=== PATIENT | female | born 1985 | race African-American/Black ===

== ENCOUNTER 2020-08-04 10:00 | Outpatient (REF) | payer OTHER, SELFPAY ==
--- NOTE | 2020-08-04 15:19 | MHC.AU.P13 ---
Adult Audiological Evaluation Date of Visit: 08/04/20 Reason for Appointment: Referred by [facility] for an audiologic evaluation and to obtain hearing aids. Briana communicates with Sign Language and Eritrean is not her primary language. Does patient feel they have a hearing loss?: Yes If Yes, Which Ear?: Both Ears When Was Hearing Difficulty First Noticed?: Since childhood Has hearing been tested previously?: No Previous Hearing Test Results: Medical History: Medical History: Headache Otoscopy: Right Ear: Unremarkable Left Ear: Unremarkable Tympanometry: Right Ear: Normal Middle Ear System (Type A) Left Ear: Normal Middle Ear System (Type A) Hearing Evaluation: Transducer(s) Used: Insert Earphones Bone Conduction Method: Conventional Audiometry Stimuli Used: Pure Tones Right Ear: Description of Hearing: Profound mixed hearing loss Left Ear: Description of Hearing: Severe to profound mixed hearing loss Speech Recognition Threshold (SRT): Method Used: Not performed at today's visit due to limited speech skills Word Discrimination: Method: Not performed at today's visit. Comparison: Compared to the most recent evaluation: N/A Recommendations: Recommendations: Trial with amplification is recommended. Medical clearance from a physician is required before fitting. Recommendations (Other): Sending prior authorization paperwork to [facility]. When approval is received will order binaural Phonak Audeo M hearing aids with integrated ultra power receivers with custom canal lock earmolds and schedule a Hearing Aid Fitting appointment. Diagnosis: Primary Diagnosis: H90.8 Mixed Hearing Loss, Unspecified Secondary Diagnosis: N/A Services Performed: Services Performed: Pure Tone- Air & Bone (CPT 06701) Speech Audiometry Threshold (SRT/SAT) (CPT 54739) Tympanometry (CPT 09357) Signature: Student/Clinical Fellow: No I have reviewed/agreed with student/fellow documentation: N/A Provider: Arcenio Monte, ESTEFANIA-A
== END 2020-08-04 10:01 | disposition home or self-care (01) ==
LOC: HO.SH 10:00
PROVIDERS: PCP Family Medicine; Visit Provider Family Medicine
DX: H90.8 Mixed conductive and sensorineural hearing loss, unspecified (principal)
CPT/HCPCS: 92553; 92555; 92567

== ENCOUNTER 2021-02-06 15:01 | Outpatient (REF) | payer MEDICAID, OTHER, SELFPAY ==
--- NOTE | ~2021-02-06 | MM_ITS ---
EXAMINATION: MM DIAGNOSTIC DIGITAL BREAST TOMOSYNTHESIS, BILATERAL US DIAGNOSTIC ULTRASOUND BREAST, RIGHT CLINICAL INFORMATION: 36-year-old with pain and tenderness retroareolar right breast. No prior breast imaging. No discharge or palpable lump noted by patient. No known family history breast cancer. Breast asymmetry noted to be a chronic finding without significant bladder changer years. The lifetime risk of breast cancer based on the Tyrer-Cuzick Model is 11%. COMPARISON: None (current study represents initial baseline exam). TECHNIQUE: Digital breast tomosynthesis is performed in both the craniocaudal and mediolateral oblique views along with computer-aided detection (CAD). Synthesized 2D images are generated from the tomosynthesis. Additional bilateral magnification CC and bilateral magnification ML views are obtained. Ultrasound right breast is targeted to the retroareolar and periareolar region. Grayscale imaging and color Doppler are performed without and with harmonics. Comparison imaging of the left retroareolar region is also performed. FINDINGS: There are scattered areas of fibroglandular density (ACR BI-RADS breast composition Category b). There is asymmetry of the breasts, right anterior breast slightly larger including the right nipple areolar complex. There is no mass or architectural abnormality. The axilla and skin contours are unremarkable. No skin thickening or coarsening of the Wicho's ligaments. No adenopathy. There are fine bilateral subareolar calcifications, slightly greater in number on the right. The calcifications demonstrate layering on the MLO view consistent with benign milk of calcium. Ultrasound demonstrates borderline bilateral subareolar duct ectasia without intraductal mass or color flow. There are scattered specular echoes consistent with milk of calcium noted on mammography. There is no cystic or solid mass or architectural abnormality. No skin thickening or edema tracking in soft tissue planes. Results are discussed with the patient at time of visit using a hospital provided marine design engineer. MM/MM tomosynthesis diagnostic BI IMPRESSION: 1. No mammographic evidence of malignancy or focal inflammatory changes. 2. Bilateral subareolar benign milk of calcium calcifications. 3. Borderline bilateral subareolar duct ectasia. ASSESSMENT: BI-RADS 2: Benign RECOMMENDATION: 1. Patient should be managed based on the clinical impression. If clinically indicated, further evaluation may be considered with surgical consult. Decision to proceed with biopsy should be based on clinical grounds and degree of clinical concern. 2. Otherwise, routine annual mammography, beginning age 40, or earlier as clinical risk factors warrant. This patient's information was entered into a reminder system with a target due date for their next mammogram.
== END 2021-02-06 15:02 | disposition home or self-care (01) ==
LOC: HO.MAMMO 15:01
PROVIDERS: Visit Provider Family Medicine
DX: N63.12 Unspecified lump in the right breast, upper inner quadrant (principal); R92.1 Mammographic calcification found on diagnostic imaging of breast
CPT/HCPCS: 76642; 77062; 77066

== ENCOUNTER 2021-03-13 13:20 | Outpatient (REF) | payer MEDICAID, OTHER, SELFPAY ==
--- NOTE | ~2021-03-13 | XR_ITS ---
EXAMINATION: XR ABDOMEN KUB CLINICAL INDICATION: Hemorrhage of rectum and anus. COMPARISON: None TECHNIQUE: AP view of the abdomen. FINDINGS: The bowel gas pattern is normal with no evidence of ileus or obstruction. No unusual soft tissue calcifications are noted. The bones are unremarkable. XR/XR KUB IMPRESSION: Unremarkable examination.
[2021-03-13 14:48] LABS: MANUAL DIFF FLAG NO
[2021-03-13 14:51] LABS: Basophils Percent Auto 0.1 % (0-2); Eosinophils Absolute Auto 0.1 X10*3/uL (0.0-0.4); Eosinophils Percent Auto 1.1 % (0-4); Hematocrit 34.4 % (37-47); Hemoglobin 11.2 g/dl (12.0-16.0); Imm Gran Abs Auto 0.02 X10*3/uL (0.00-0.03); Imm Gran Pct Auto 0.2 % (0.0-0.4); Lymphocytes Absolute Auto 3.2 X10*3/uL (1.2-4.9); Lymphocytes Percent Auto 33.8 % (20-40); Mean Corpuscular HGB Conc 32.6 g/dl (31.0-35.0); Mean Corpuscular Hemoglobin 31.5 pg (27.0-33.0); Mean Corpuscular Volume 96.6 fL (80-98); Mean Platelet Volume 9.1 fL (9.4-12.3); Monocytes Absolute Auto 0.6 X10*3/uL (0.1-1.2); Neutrophils Absolute Auto 5.5 X10*3/uL (2.0-8.3); Neutrophils Percent Auto 58.8 % (45-73); Platelet Count 358 X10*3/uL (160-400); Red Blood Count 3.56 X10*6/uL (4.20-5.50); Red Cell Distribution Width 12.8 % (11.0-16.0); White Blood Count 9.3 X10*3/uL (4.8-10.8)
[2021-03-13 15:18] LABS: Alanine Aminotransferase 12 U/L (0-31); Albumin Level 4.3 g/dL (3.5-5.0); Alkaline Phosphatase 77 U/L (39-117); Anion Gap 11 (12-20); Aspartate Amino Transferase 13 U/L (5-31); Bilirubin Direct 0.3 mg/dL (0.0-0.5); Bilirubin Total 0.8 mg/dL (0.0-1.0); Blood Urea Nitrogen 16 mg/dL (9-16); C Reactive Protein 1.83 mg/dL (< or = 0.50); Calcium 9.6 mg/dL (8.4-10.2); Carbon Dioxide 28 mmol/L (22-29); Chloride 104 mmol/L (96-108); Estimated Glomerular Filt Rate > 60; Glucose Random 80 mg/dL (60-115); Lipase 27 U/L (8-78); Potassium 3.9 mmol/L (3.3-5.1); Sodium 139 mmol/L (135-145)
== END 2021-03-13 13:21 | disposition home or self-care (01) ==
LOC: HO.LAB 13:20
PROVIDERS: PCP Family Medicine; Visit Provider Emergency Medicine
DX: K62.5 Hemorrhage of anus and rectum (principal); R10.30 Lower abdominal pain, unspecified
CPT/HCPCS: 36415; 74018; 80048; 80076; 83690; 85025; 86140

== ENCOUNTER 2021-03-26 12:10 | Outpatient (REF) | payer MEDICAID, OTHER, SELFPAY ==
[2021-03-26 12:37] LABS: OBS Int Ctl Valid YES; OBS1 NEGATIVE (NEGATIVE)
== END 2021-03-26 12:11 | disposition home or self-care (01) ==
LOC: HO.LNP 12:10
PROVIDERS: Visit Provider Family Medicine
DX: R10.30 Lower abdominal pain, unspecified (principal); Z11.0 Encounter for screening for intestinal infectious diseases
CPT/HCPCS: 82272; 87045; 87046; 87177; 87209; 87338

== ENCOUNTER 2022-07-09 11:00 | Outpatient (REF) | payer MEDICAID, OTHER, SELFPAY ==
--- NOTE | ~2022-07-09 | US_ITS ---
EXAMINATION: US PELVIS CLINICAL INFORMATION: Evaluate ovaries. Patient gives history of ovarian agenesis COMPARISON: Previous exam July 2019 TECHNIQUE: Ultrasound of the pelvis is performed using both transabdominal and transvaginal transducers along with Doppler. Transvaginal imaging is performed due to inadequate visualization transabdominally. FINDINGS: The uterus is retroverted and retroflexed and measures 6 x 2.7 x 3.8 cm. No focal uterine lesion is seen. Endometrial thickness is normal measuring 0.8 cm. There is a nabothian cyst in the cervix. The ovaries are not identified. There is no fluid in the pelvis. US/US pelvic and transvaginal IMPRESSION: Normal-appearing uterus. Ovaries not identified.
== END 2022-07-09 11:01 | disposition home or self-care (01) ==
LOC: HO.US 11:00
PROVIDERS: Visit Provider Family Medicine
DX: E28.39 Other primary ovarian failure (principal)
CPT/HCPCS: 76830; 76856

== ENCOUNTER 2023-07-10 18:50 | Outpatient (REF) | payer MEDICAID, OTHER, SELFPAY ==
[2023-07-11 03:27] LABS: CT PCR NOT DETECTED (Not Detect.); NG PCR NOT DETECTED (Not Detect.)
[2023-07-11 16:02] LABS: BV Int Neg Control Negative (Negative); BV Int Pos Control Positive (Positive)
== END 2023-07-10 18:51 | disposition home or self-care (01) ==
LOC: HO.HHCLNP 18:50
PROVIDERS: Visit Provider Family Medicine
DX: B37.31 Acute candidiasis of vulva and vagina (principal)
CPT/HCPCS: 0353U; 87480; 87510; 87660

== ENCOUNTER 2023-08-20 09:15 | Outpatient (REF) | payer MEDICAID, OTHER, SELFPAY ==
--- NOTE | ~2023-08-20 | XR_ITS ---
EXAMINATION: XR ABDOMEN KUB CLINICAL INDICATION: Lower abdominal pain acute bilateral back pain without sciatica COMPARISON: 03/13/2021 TECHNIQUE: AP view of the abdomen. FINDINGS: The bowel gas pattern is normal with no evidence of ileus or obstruction. No unusual soft tissue calcifications are noted. The bones are unremarkable. XR/XR KUB IMPRESSION: Unremarkable examination.
[2023-08-20 18:25] LABS: Appearance Urine Turbid; Color Urine Yellow; Glucose Urine UA Negative (Negative); Leukocyte Esterase Urine Small (1+) (Negative); Nitrite Urine Negative (Negative); PH 5.5 (5.0-9.0); Specific Gravity - Urine >= 1.030 (1.005-1.025); UMIC TRIGGER UACC YES; Urine Blood Negative (Negative); Urine Ketones Negative (Negative); Urine Protein Trace mg/dL (Neg-Trace)
[2023-08-20 18:33] LABS: Bacteria Urine None Seen (None Seen); Hyaline Casts Urine 0-2 /LPF (0-2); RBC Urine 0-2 /HPF (0-2); Squamous Epithelial Cell Urine 0-2 /HPF (0-2); UACC Culture Trigger YES; WBC Urine 21-50 /HPF (0-5)
== END 2023-08-20 09:16 | disposition home or self-care (01) ==
LOC: HO.HHCX 09:15
PROVIDERS: Visit Provider Family Medicine
DX: R10.30 Lower abdominal pain, unspecified (principal); M54.50 Low back pain, unspecified
CPT/HCPCS: 36415; 74018; 81001; 84702; 85025; 86140; 87086

== ENCOUNTER 2023-08-20 09:59 | Outpatient (REF) | payer MEDICAID, OTHER, SELFPAY ==
[2023-08-20 11:04] LABS: MANUAL DIFF FLAG NO
[2023-08-20 11:30] LABS: Basophils Percent Auto 0.2 % (0-2); Eosinophils Percent Auto 0.4 % (0-4); Hemoglobin 12.3 g/dl (12.0-16.0); Imm Gran Abs Auto 0.01 X10*3/uL (0.00-0.03); Imm Gran Pct Auto 0.2 % (0.0-0.4); Lymphocytes Absolute Auto 2.5 X10*3/uL (1.2-4.9); Lymphocytes Percent Auto 52.2 % (20-40); Mean Corpuscular HGB Conc 33.2 g/dl (31.0-35.0); Mean Corpuscular Hemoglobin 31.2 pg (27.0-33.0); Mean Corpuscular Volume 93.9 fL (80.0-98.0); Mean Platelet Volume 9.9 fL (9.4-12.3); Monocytes Absolute Auto 0.3 X10*3/uL (0.1-1.2); Monocytes Percent Auto 6.6 % (2-11); Neutrophils Absolute Auto 1.9 x10*3/uL (2.0-8.3); Neutrophils Percent Auto 40.4 % (45-73); Platelet Count 357 X10*3/uL (160-400); Red Blood Count 3.94 X10*6/uL (4.20-5.50); Red Cell Distribution Width 12.4 % (11.0-16.0); White Blood Count 4.7 X10*3/uL (4.8-10.8)
[2023-08-20 11:38] LABS: C Reactive Protein 0.36 mg/dL (< or = 0.50)
[2023-08-20 11:40] LABS: HCG Quantitative < 2 mIU/mL
== END 2023-08-20 10:00 | disposition home or self-care (01) ==
LOC: HO.HHCL 09:59
PROVIDERS: Visit Provider Family Medicine
DX: R10.30 Lower abdominal pain, unspecified (principal); M54.50 Low back pain, unspecified
CPT/HCPCS: 36415; 84702; 85025; 86140

== ENCOUNTER 2023-12-25 12:47 | Outpatient (REF) | payer OTHER, SELFPAY ==
--- NOTE | ~2023-12-25 | XR_ITS ---
EXAMINATION: XR CHEST CLINICAL INFORMATION: Ongoing cough COMPARISON: None available. TECHNIQUE: 2 views of the chest were obtained. FINDINGS: No significant abnormality is noted involving the heart, lungs, mediastinum, bony thorax or soft tissues. XR/XR chest 2V IMPRESSION: Unremarkable examination.
== END 2023-12-25 12:48 | disposition home or self-care (01) ==
LOC: HO.HHCX 12:47
PROVIDERS: Visit Provider Student in an Organized Health Care Education/Training Program
DX: R05.9 Cough, unspecified (principal)
CPT/HCPCS: 71046

== ENCOUNTER 2023-12-25 13:01 | Outpatient (REF) | payer OTHER, SELFPAY ==
[2023-12-27 22:59] LABS: TS Negative Control Passed; TS Panel A 3; TS Panel B 0; TS Positive Control Passed; TSpotTB Negative (Negative)
== END 2023-12-25 13:02 | disposition home or self-care (01) ==
LOC: HO.HHCL 13:01
PROVIDERS: Visit Provider Student in an Organized Health Care Education/Training Program
DX: R05.9 Cough, unspecified (principal)
CPT/HCPCS: 36415; 86481

== ENCOUNTER 2024-05-11 10:58 | Outpatient (REF) | payer OTHER, SELFPAY ==
[2024-05-11 13:11] LABS: Estimated Average Glucose 134 mg/dL; Hemoglobin A1c % 6.3 % (<6.0)
[2024-05-11 16:26] LABS: Alanine Aminotransferase 11 U/L (0-31); Albumin Level 4.4 g/dL (3.5-5.0); Alkaline Phosphatase 69 U/L (39-117); Anion Gap 13 (12-20); Aspartate Amino Transferase 17 U/L (5-31); Bilirubin Direct 0.2 mg/dL (0.0-0.5); Bilirubin Total 0.4 mg/dL (0.0-1.0); Blood Urea Nitrogen 10 mg/dL (9-16); Calcium 9.7 mg/dL (8.4-10.2); Carbon Dioxide 26 mmol/L (22-29); Chloride 103 mmol/L (96-108); Cholesterol 199 mg/dL (<200); Estimated Glomerular Filt Rate > 60; Glucose Random 86 mg/dL (60-115); HDL Cholesterol 58 mg/dL (>40); LDL Cholesterol Calculated 128 mg/dL (<100); Potassium 3.8 mmol/L (3.3-5.1); Sodium 138 mmol/L (135-145); Total Protein 7.6 g/dL (6.5-8.0); Triglycerides 69 mg/dL (<150)
[2024-05-12 09:13] LABS: Bacterial Vaginosis PCR NEGATIVE (Negative); Candida Group PCR NOT DETECTED (Not Detect); Candida glab krusei PCR NOT DETECTED (Not Detect); Trichomonas vaginalis PCR NOT DETECTED (Not Detect)
== END 2024-05-11 10:59 | disposition home or self-care (01) ==
LOC: HO.HHCL 10:58
PROVIDERS: Visit Provider Family Medicine
DX: E11.9 Type 2 diabetes mellitus without complications (principal); N89.8 Other specified noninflammatory disorders of vagina; K21.9 Gastro-esophageal reflux disease without esophagitis
CPT/HCPCS: 0352U; 36415; 80048; 80061; 80076; 83036

== ENCOUNTER 2024-09-07 10:15 | Outpatient (REF) | payer OTHER, SELFPAY ==
[2024-09-07 11:39] LABS: Estimated Average Glucose 134 mg/dL; Hemoglobin A1C 144.4207 umol/L; Hemoglobin A1c % 6.3 % (<6.0); Total Hemoglobin (HGBA1C) 3176.0349 umol/L
[2024-09-07 12:16] LABS: Alanine Aminotransferase 20 U/L (0-31); Albumin Level 4.5 g/dL (3.5-5.0); Alkaline Phosphatase 78 U/L (39-117); Anion Gap 13 (12-20); Aspartate Amino Transferase 22 U/L (5-31); Bilirubin Direct 0.2 mg/dL (0.0-0.5); Bilirubin Total 0.5 mg/dL (0.0-1.0); Blood Urea Nitrogen 10 mg/dL (9-16); Calcium 9.9 mg/dL (8.4-10.2); Carbon Dioxide 27 mmol/L (22-29); Chloride 104 mmol/L (96-108); Cholesterol 136 mg/dL (<200); Creatinine Urine 151.12 mg/dL; Estimated Glomerular Filt Rate > 60; Glucose Random 102 mg/dL (60-115); HDL Cholesterol 53 mg/dL (>40); LDL Cholesterol Calculated 67 mg/dL (<100); Microalbum/Creatinine Ratio Ur 5.2 ug/mg cr (<30); Potassium 3.7 mmol/L (3.3-5.1); Sodium 140 mmol/L (135-145); Total Protein 7.8 g/dL (6.5-8.0); Triglycerides 84 mg/dL (<150)
[2024-09-07 17:53] LABS: Appearance Urine Clear; Color Urine Yellow; Glucose Urine UA Negative (Negative); Leukocyte Esterase Urine Negative (Negative); Nitrite Urine Negative (Negative); Specific Gravity - Urine 1.015 (1.005-1.025); Urine Blood Negative (Negative); Urine Ketones Negative (Negative); Urine Protein Negative (Neg-Trace)
[2024-09-07 17:58] LABS: Bacteria Urine None Seen (None Seen); Hyaline Casts Urine 0-2 /LPF (0-2); RBC Urine 0-2 /HPF (0-2); WBC Urine 0-5 /HPF (0-5)
[2024-09-08 14:54] LABS: H Pylori Breath Test Negative (Negative)
== END 2024-09-07 10:16 | disposition home or self-care (01) ==
LOC: HO.HHCL 10:15
PROVIDERS: Visit Provider Family Medicine
DX: E11.9 Type 2 diabetes mellitus without complications (principal); R10.84 Generalized abdominal pain
CPT/HCPCS: 36415; 80048; 80061; 80076; 81001; 82043; 82570; 83013; 83036

== ENCOUNTER 2024-09-16 10:04 | Outpatient (REF) | payer OTHER, SELFPAY | END 2024-09-16 10:05 | disposition home or self-care (01) | LOC: HO.US 10:04 | PROVIDERS: PCP Family Medicine; Visit Provider Family Medicine | DX: R10.84 Generalized abdominal pain (principal); E11.9 Type 2 diabetes mellitus without complications | CPT/HCPCS: 76775 ==

== ENCOUNTER 2024-11-10 16:30 | Outpatient (REF) | payer OTHER, SELFPAY ==
[2024-11-11 08:18] LABS: HPV 16,18/45 See PAP report
[2024-11-22 02:15] LABS: C. trachomatis RNA TMA Not Detected (Not Detected); N. gonorrhoeae RNA TMA Not Detected (Not Detected); Trichomonas (NAAT) Not Detected (Not Detected)
== END 2024-11-10 16:31 | disposition home or self-care (01) ==
LOC: HO.HHCLNP 16:30
PROVIDERS: Visit Provider Family Medicine
DX: Z12.4 Encounter for screening for malignant neoplasm of cervix (principal); Z11.3 Encounter for screening for infections with a predominantly sexual mode of transmission
CPT/HCPCS: 87491; 87591; 87626; 87661; 88175

== ENCOUNTER 2025-03-29 09:35 | Outpatient (AMB) | payer OTHER, SELFPAY ==
[2025-03-29 09:39] VITALS: BP 112/62; PULSE 92; O2SAT 98; BMI 28.2
--- NOTE | 2025-03-29 09:39 | A.OFFVIS_ITS ---
Vital Signs 03/29/25 09:39 Height 5 ft 7 in Weight 180 lb BMI 28.2 BP 112/62 Blood Pressure Location Rt brachial Position Sitting Pulse 92 Pulse Source Pulse Oximeter Pulse Oximetry (%) 98 Oxygen Delivery Method Room Air Intake Visit Reasons: Consult epigastric pain Intake Note: NEW PATIENT for eval of epigastric pain. CC: C.O. chronic GERD over the last 1+ years. Pt reports onset in November 2023. Pt has been placed on Omeprazole 20 mg and then 40 mg subsequently thereafter by PCP without any relief to this point. Pt does experience N+V intermittently and epigastric pain. Also reports throat irritation. Concrete Mixing Plant Superintendent Required: Yes Concrete Mixing Plant Superintendent Services: Concrete Mixing Plant Superintendent Present Concrete Mixing Plant Superintendent Name: Julia Hayes257 ([facility]) Information Interpreted: clinical only Accompanied by: Self / Same As Patient Allergies No Known Allergies Allergy (Verified 03/24/25 09:33) HPI HPI Consult epigastric pain: Details: 40-year-old female with past medical history of diabetes, GERD is here today for initial consultation. Patient has been having worsening epigastric pain no matter what she eats for over a year. In 2020 patient was diagnosed with H pylori and treated with antibiotics. Patient's PCP started her on 20 mg of omeprazole the dose was just recently increase to 40 mg. Patient's PCP tried to stop metformin as well as Trulicity without any improvement. Patient reports epigastric pain and burning, sometimes patient wakes up with severe epigastric pain and occasional nausea without vomiting. Reports dyspepsia without dysphagia or odynophagia. Patient reports that she is moving her bowels well. Take Senokot as needed. Denies melena, hematochezia [facility] Medical History (Updated 03/29/25 @ 10:22 by Jazmine Moreno, [facility]) Constipation Diabetes GERD (gastroesophageal reflux disease) Family History (Updated 03/29/25 @ 09:47 by ITALIA Dudley) Father Colon cancer Social History (Updated 03/29/25 @ 09:48 by ITALIA Dudley) Alcohol intake: never Patient Tobacco Use Status: Never used Tobacco Review of Systems Const Denies weight gain and Denies weight loss ENT Reports no additional complaints, Denies dysphagia and Denies odynophagia Card Reports no additional complaints Resp Reports no additional complaints GI Reports abdominal pain (Epigastric), Denies belching, Denies melena, Reports bloating, Denies change in bowel habits, Denies dysphagia, Denies excessive flatus, Reports dyspepsia, Reports heartburn, Denies diarrhea, Denies loose stools, Denies nausea, Denies odynophagia and Denies vomiting Reports no additional complaints Musc Reports no additional complaints Neuro Reports no additional complaints Psych Reports no additional complaints Endo Reports no additional complaints Physical Exam Vital Signs: BMI result Body Mass Index 28.2 Const General: healthy appearing, no acute distress and well developed Nutritional Appearance: well nourished Orientation/consciousness: patient oriented x3 Resp Effort & Inspection: normal respiratory effort, able to speak in complete senten silviano, no tracheal deviation and symmetric chest movement Auscultation: clear to auscultation bilaterally Cardio Rate: regular rate GI Inspection: Yes normal to inspection and No distended Palpation (GI): Soft to palpation, not firm, nontender and No hepatosplenomegaly present Auscultation: normal bowel sounds General: Yes no CVA tenderness Back/Spine/Pelvis Back: no CVA tenderness Skin General skin exam: elasticity normal, turgor normal and dry skin Neuro General: patient oriented x3 Psych Appearance: grossly normal Mental Status: mental status grossly normal Assessment & Plan Assessment & Plan (1) GERD (gastroesophageal reflux disease): Code(s): K21.9 - Gastro-esophageal reflux disease without esophagitis Qualifiers: Esophagitis presence: esophagitis presence not specified Qualified Code(s): K21.9 - Gastro-esophageal reflux disease without esophagitis (2) Postprandial epigastric pain: Code(s): R10.13 - Epigastric pain (3) Postprandial abdominal bloating: Code(s): R14.0 - Abdominal distension (gaseous) (4) Dyspepsia: Code(s): R10.13 - Epigastric pain Plan Patient will stop taking omeprazole. Will switch her to pantoprazole, however patient will take famotidine for 2 weeks prior to H pylori testing. Hold famotidine 24 hours and NPO for 1 hour prior to testing. Will check transglutaminase, vitamin B12, folate, vitamin-D level and lipase. Patient will avoid dietary triggers and late night snacking. Staying upright for minimum 3 hours after meals discussed with patient. Patient will also be sent for upper GI with barium swallow. Follow-up in 2 months, sooner on as needed basis. Patient is agreeable to current plan of care and verbalizes understanding of instructions. She was given the opportunity to ask questions and all questions answered. Thank you for allowing me to participate in her care Orders: Orders Vitamin B12 and Folate Today R19.7 - Diarrhea, unspecified Transglutaminase IgA Today R10.9 - Unspecified abdominal pain H Pylori Breath Test Today K21.9 - Gastro-esophageal reflux disease without esophagitis FL upper GI w Ba Swallow Today K21.9 - Gastro-esophageal reflux disease without esophagitis Vitamin D 25-OH (D2 and D3) Today E55.9 - Vitamin D deficiency, unspecified Lipase Today R10.9 - Unspecified abdominal pain Medications: New famotidine (Pepcid) 20 mg PO BID 30 tabs 3RF K29.70 - Gastritis, unspecified, without bleeding pantoprazole take one tablet half an hour before breakfast 40 mg PO DAILY 30 tabs 2RF K21.9 - Gastro-esophageal reflux disease without esophagitis Coding Level of Care Code New Pt Level 3 (23715) Diagnoses Gastroesophageal reflux disease, unspecified whether esophagitis present K21.9 Esophagitis presence: esophagitis presence not specified Postprandial epigastric pain R10.13 Postprandial abdominal bloating R14.0 Dyspepsia R10.13 Time Spent (min) 40 Comment 30 minutes spent with patient and additional 10 minutes spent reviewing her records
--- OUTSIDE RECORDS SUMMARY | 2025-03-29 10:12 | XMS_ITS | Encounter Summary ---
Author Organization [employer] Address [address] [facility] [address] [address] [place] [address] Care Team Providers Care Merchandise Planner Name Role Phone Agnes Christopher MD Primary Care Provider + [phone] Elena Norris OD Unavailable [phone] Encounter Details Date Type Department Care Team (Late st Contact Info) Description 05/21/2024 Orders Only [facility] [address] [place] [address] [phone] Agnes Christopher MD [address] [place] [address] [phone] Bacterial vaginosis (Primary Dx) Social History Tobacco Use Types Packs/Day Years Used Date Smoking Tobacco: Never Passive Smoke Exposure: Never Smokeless Tobacco: Never Comments Unknown Sex and Gender Information Value Date Recorded Sex Assigned at Female 09/02/2022 10:35 AM EDT Legal Sex Female 10:35 AM EDT Gender Identity Female 09/02/2022 10:35 AM EDT Sexual Orientation Choose not to disclose 2021 10:35 AM EDT documented as of this encounter Plan of Treatment Upcoming Encounters Date Type Department Care Team (Late st Contact Info) Description 04/08/2025 9:30 AM EDT Office Visit [facility] [address] [place] [id number] Agnes Christopher MD [address] [place] [address] [phone] documented as of this encounter Visit Diagnoses Diagnosis Bacterial vaginosis- Primary Unspecified vaginitis and vulvovaginitis documented in this encounter Care Teams Merchandise Planner Relationship Specialty Start Date End Date Agnes Christopher MD [address] [place] [address] PCP - General Family Medicine 06/09/19 Elena Norris OD [address] [place] [address] Optometry 11/10/24 documented as of this encounter
== END 2025-03-29 11:40 | disposition home or self-care (01) ==
LOC: HO.HGI 09:35
PROVIDERS: PCP Family Medicine; Visit Provider Nurse Practitioner Family
DX: K21.9 Gastro-esophageal reflux disease without esophagitis (principal); R10.13 Epigastric pain; R14.0 Abdominal distension (gaseous)
CPT/HCPCS: 99203

== ENCOUNTER → 2025-03-29 09:35 | Outpatient (BNVA) | payer OTHER, SELFPAY | PROVIDERS: PCP Family Medicine; Visit Provider Nurse Practitioner Family | DX: K21.9 Gastro-esophageal reflux disease without esophagitis (principal); K29.70 Gastritis, unspecified, without bleeding; R10.13 Epigastric pain; R14.0 Abdominal distension (gaseous); R19.7 Diarrhea, unspecified; R10.9 Unspecified abdominal pain; E55.9 Vitamin D deficiency, unspecified | CPT/HCPCS: 99202 ==

== ENCOUNTER 2025-04-12 10:30 | Outpatient (REF) | payer OTHER, SELFPAY ==
[2025-04-13 12:25] LABS: H Pylori Breath Test Negative (Negative)
== END 2025-04-12 10:31 | disposition home or self-care (01) ==
LOC: HO.LNP 10:30
PROVIDERS: PCP Family Medicine; Visit Provider Nurse Practitioner Family
DX: K21.9 Gastro-esophageal reflux disease without esophagitis (principal)
CPT/HCPCS: 83013

== ENCOUNTER 2025-04-26 08:21 | Outpatient (REF) | payer OTHER, SELFPAY ==
--- OUTSIDE RECORDS SUMMARY | 2025-04-26 08:35 | XMS_ITS | Encounter Summary ---
Author Organization [employer] Address [address] [place] [address] Care Team Providers Care Stars Specialist Name Role Phone Agnes Christopher MD Primary Care Provider + [phone] MyrnaElena OD Unavailable [phone] Jazmine Moreno Unavailable Encounter Details Date Type Department Care Team (Late st Contact Info) Description 05/21/2024 Orders Only [facility] [address] [place] [address] [phone] Agnes Christopher MD [address] [place] [address] [phone] Bacterial vaginosis (Primary Dx) Social History Tobacco [...] as of this encounter Plan of Treatment Not on file documented as of this encounter Visit Diagnoses Diagnosis Bacterial vaginosis- Primary Unspecified vaginitis and vulvovaginitis documented in this encounter Care Teams Stars Specialist Relationship Specialty Start Date End Date Agnes Christopher MD [address] [place] [address] [phone] PCP - General Family Medicine 06/09/19 Elena Norris OD [address] [place] [address] Optometry 11/10/24 Jazmine Moreno [address] [place] [address] Drive [address]rd [place] [address] Gastroenterology 04/01/25 documented as of this encounter
[2025-04-26 11:55] LABS: Lipase 31 U/L (8-78)
[2025-04-26 12:19] LABS: Folate 10.8 ng/mL (> or = 4.0); Vitamin B12 595 pg/mL (200-900)
[2025-04-28 22:39] LABS: Transglutaminase IgA <1.0 U/mL
[2025-04-30 15:44] LABS: Vitamin D 25-OH, D2 <4 ng/mL; Vitamin D 25-OH, D3 49 ng/mL; Vitamin D 25-OH, Total 49 ng/mL (30-100)
== END 2025-04-26 08:22 | disposition home or self-care (01) ==
LOC: HO.HHCL 08:21
PROVIDERS: PCP Family Medicine; Visit Provider Nurse Practitioner Family
DX: R19.7 Diarrhea, unspecified (principal); R10.9 Unspecified abdominal pain; E55.9 Vitamin D deficiency, unspecified
CPT/HCPCS: 36415; 82306; 82607; 82746; 83690; 86364

== ENCOUNTER 2025-06-21 10:28 | Outpatient (AMB) | payer OTHER, SELFPAY ==
--- NOTE | 2025-06-21 10:36 | A.OFFVIS_ITS ---
Vital Signs 06/21/25 10:46 Height 5 ft 7 in Weight 181 lb BMI 28.3 BP 124/66 Blood Pressure Location Rt brachial Position Sitting Pulse 90 Pulse Source Pulse Oximeter Pulse Oximetry (%) 94 Oxygen Delivery Method Room Air Intake Visit Reasons: 2 month follow up Intake Note: Est pt for mgmt of chronic abd pain + GERD. Labs done. Imaging x1 mos out. CC; C.O. GERD persistence + N+V despite current therapies. Crystal Flat Grinder Required: Yes Crystal Flat Grinder Services: Crystal Flat Grinder Present Crystal Flat Grinder Name: Bijal [id number] Information Interpreted: clinical only Accompanied by: Self / Same As Patient Allergies No Known Allergies Allergy (Verified 06/21/25 10:36) HPI HPI 2 month follow up: Details: LAST VISIT GERD (gastroesophageal reflux disease) Postprandial epigastric pain Postprandial abdominal bloating Dyspepsia Plan Patient will stop taking omeprazole. Will switch her to pantoprazole, however patient will take famotidine for 2 weeks prior to H pylori testing. Hold famotidine 24 hours and NPO for 1 hour prior to testing. Will check transglutaminase, vitamin B12, folate, vitamin-D level and lipase. Patient will avoid dietary triggers and late night snacking. Staying upright for minimum 3 hours after meals discussed with patient. Patient will also be sent for upper GI with barium swallow. Follow-up in 2 months, sooner on as needed basis. Patient is agreeable to current plan of care and verbalizes understanding of instructions. She was given the opportunity to ask questions and all questions answered. ? Thank you for allowing me to participate in her care Orders Vitamin B12 and Folate Today R19.7 Transglutaminase IgA Today R10.9 H Pylori Breath Test Today K21.9 FL upper GI w Ba Swallow Today K21.9 Vitamin D 25-OH (D2 and D3) Today E55.9 Lipase Today R10.9 New famotidine (Pepcid) 20 mg PO BID 30 tabs 3RF K29.70 pantoprazole take one tablet half an hour before breakfast 40 mg PO DAILY 30 tabs 2RF K21.9 TODAY'S VISIT Patient is here today for requested visit. Patient reports that she has been struggling in the past few weeks. Patient states that she is taking pantoprazole in the morning states that her symptoms acid reflux is not gone away. Patient feels like she is feeling worse. Negative H pylori breath test. Patient is taking additionally famotidine. Feels like severe burning in the epigastric area. Patient reports dyspepsia without dysphagia or odynophagia. Patient otherwise had normal labs. Barium swallow is not until July 19. Patient denies any nausea or vomiting. Reports that she is moving her bowels better now that she is taking senna. She is on Trulicity. Patient was placed on Trulicity about in November. She patient states that her symptoms are worse since on it. Will send a message to PCP to see if patient can be changed to Monjaro. Patient denies having any family history of thyroid cancer. [facility] Medical History Constipation Diabetes GERD (gastroesophageal reflux disease) Family History Father Colon cancer Social History Alcohol intake: never Patient Tobacco Use Status: Never used Tobacco Review of Systems Const Denies weight gain and Denies weight loss ENT Reports no additional complaints, Denies dysphagia and Denies odynophagia Card Reports no additional complaints Resp Reports no additional complaints GI Reports abdominal pain (Epigastric), Denies belching, Denies melena, Reports bloating, Denies change in bowel habits, Denies dysphagia, Denies excessive flatus, Reports dyspepsia, Reports heartburn, Denies diarrhea, Denies loose stools, Denies nausea, Denies odynophagia and Denies vomiting Reports no additional complaints Musc Reports no additional complaints Neuro Reports no additional complaints Psych Reports no additional complaints Endo Reports no additional complaints Physical Exam Vital Signs: Last Vital Signs Pulse 90 06/21/25 10:46 BP 124/66 06/21/25 10:46 Pulse Ox 94 06/21/25 10:46 Oxygen Delivery Method Room Air 06/21/25 10:46 BMI result Body Mass Index 28.3 Const General: healthy appearing, no acute distress and well developed Nutritional Appearance: well nourished Orientation/consciousness: patient oriented x3 Resp Effort & Inspection: normal respiratory effort, able to speak in complete sentences, no tracheal deviation and symmetric chest movement Auscultation: clear to auscultation bilaterally Cardio Rate: regular rate GI Inspection: Yes normal to inspection and No distended Palpation (GI): Soft to palpation, not firm, nontender and No hepatosplenomegaly present Auscultation: normal bowel sounds General: Yes no CVA tenderness Back/Spine/Pelvis Back: no CVA tenderness Skin General skin exam: elasticity normal, turgor normal and dry skin Neuro General: patient oriented x3 Psych Appearance: grossly normal Mental Status: mental status grossly normal Assessment & Plan Assessment & Plan (1) Gastroesophageal reflux disease: Code(s): K21.9 - Gastro-esophageal reflux disease without esophagitis Qualifiers: Esophagitis presence: esophagitis presence not specified Qualified Code(s): K21.9 - Gastro-esophageal reflux disease without esophagitis (2) Postprandial epigastric pain: Code(s): R10.13 - Epigastric pain (3) Postprandial abdominal bloating: Code(s): R14.0 - Abdominal distension (gaseous) (4) Dyspepsia: Code(s): R10.13 - Epigastric pain (5) Constipation: Code(s): K59.00 - Constipation, unspecified Qualifiers: Constipation type: slow transit constipation Qualified Code(s): K59.01 - Slow transit constipation Plan Patient will stop taking pantoprazole and start Nexium. She can take sucralfate when she gets home and at bedtime. Stop famotidine. Avoid dietary triggers and late night snacking. Staying upright for minimal 3 hours after meals discussed with patient. Recommend to stop Trulicity and possibly put patient on Monjaro. Patient was encouraged to keep her appointment with radiology on July 19. Keep her appointment with me for follow-up. She was encouraged to call our office if she will continue to have symptoms. Patient is agreeable to current plan of care and verbalizes understanding of instructions. She was given the opportunity to ask questions and all questions answered. Thank you for allowing me to participate in her care Medications: New esomeprazole magnesium (Nexium) 40 mg PO DAILY 30 caps 3RF K21.9 - Gastro- esophageal reflux disease without esophagitis sucralfate 1 g PO BEDTIME 30 tabs 4RF K21.9 - Gastro-esophageal reflux disease without esophagitis, R10.13 - Epigastric pain Discontinued pantoprazole take one tablet half an hour before breakfast Discontinued Reason: Doctor's Order 40 mg PO DAILY 90 days 90 tabs 2RF K21.9 - Gastro-esophageal reflux disease without esophagitis Coding Level of Care Code Est Pt Level 4 (98345) Complex EM visit Add On G2211 Diagnoses Gastroesophageal reflux disease, unspecified whether esophagitis present K21.9 Esophagitis presence: esophagitis presence not specified Postprandial epigastric pain R10.13 Postprandial abdominal bloating R14.0 Dyspepsia R10.13 Slow transit constipation K59.01 Constipation type: slow transit constipation Time Spent (min) 40 Comment 25 minutes spent with patient and additional 15 minutes spent reviewing her records s
[2025-06-21 10:46] VITALS: BP 124/66; PULSE 90; O2SAT 94; BMI 28.3
--- OUTSIDE RECORDS SUMMARY | 2025-06-21 11:52 | XMS_ITS | Encounter Summary ---
Author Organization [employer] Address [address] 7[address] [place] [address] Care Team Providers Care Gas Plant Technician Name Role Phone Agnes Christopher MD Primary Care Provider MyrnaTimothyElena OD Unavailable [phone] Tim Morenoyna Unavailable Encounter Details Date Type Department Care Team (Late st Contact Info) Description 05/21/2024 Orders Only [facility] [address] [place] [address] Agnes Christopher MD [address] [place] [address] [phone] Bacterial vaginosis (Primary Dx) Social History Tobacco [...] Care Team (Late st Contact Info) Description 08/17/2025 10:30 AM EDT Office Visit [facility] MEDICINE [address] [place] [address] Agnes Christopher MD [address] [place] [address] [phone] documented as of this encounter Visit Diagnoses Diagnosis Bacterial vaginosis- Primary Unspecified vaginitis and vulvovaginitis documented in this encounter Care Teams Gas Plant Technician Relationship Specialty Start Date End Date Agnes Christopher MD [address] [place] [address] PCP - General Family Medicine 06/09/19 Elena Norris OD [address] [place] [address] Optometry 11/10/24 Jazmine Moreno [address] 3rd [place] [address] Gastroenterology 04/01/25 documented as of this encounter
== END 2025-06-21 11:25 | disposition home or self-care (01) ==
LOC: HO.HGI 10:29
PROVIDERS: PCP Family Medicine; Visit Provider Nurse Practitioner Family
DX: K21.9 Gastro-esophageal reflux disease without esophagitis (principal); R10.13 Epigastric pain; R14.0 Abdominal distension (gaseous); K59.01 Slow transit constipation
CPT/HCPCS: 99214

== ENCOUNTER → 2025-06-21 10:28 | Outpatient (BNVA) | payer OTHER, SELFPAY | PROVIDERS: PCP Family Medicine; Visit Provider Nurse Practitioner Family | DX: K21.9 Gastro-esophageal reflux disease without esophagitis (principal); R10.13 Epigastric pain; R14.0 Abdominal distension (gaseous); K59.01 Slow transit constipation | CPT/HCPCS: 99212 ==

== ENCOUNTER 2025-07-05 14:59 | Outpatient (AMB) | payer OTHER, SELFPAY ==
--- NOTE | 2025-07-05 15:11 | A.OFFVIS_ITS ---
Vital Signs 3 07/05/25 15:23 Height 5 ft 7 in Weight 185 lb BMI 29.0 BP 120/70 Blood Pressure Location Lt brachial Position Sitting Intake Visit Reasons: Nipple pain/swelling Intake Note: Patient is seen in office for evaluation of pain and swelling in the nipple. Pt c/o: pain in the right nipple for the past 2 months, has tried medication but it upset her stomach, denies discharge, redness, swelling or other concerns, no prior breast surgeries or concerns, no fm hx of breast cancer Supervisor Park Workers Required: Yes Supervisor Park Workers Language: Sand Plant Attendant Services: Supervisor Park Workers Present Supervisor Park Workers Name: Laura [facility] Supervisor Park Workers Information Interpreted: non-clinical & clinical Hot Roller: Hot Roller Present Accompanied by: Self / Same As Patient Allergies No Known Allergies Allergy (Verified 06/21/25 10:36) Medication List - Last Reconciled 07/05/25 by Feliz Aguilera MD atorvastatin 20 mg PO BEDTIME blood-glucose meter (FreeStyle Lite Meter kit) As directed cholecalciferol (vitamin D3) 25 mcg PO DAILY clobetasol 0.05% 1 appl topical BEDTIME dulaglutide (Trulicity) 0.75 mg subcut QWEEK esomeprazole magnesium (Nexium) 40 mg PO DAILY estradiol 2 mg PO DAILY famotidine 20 mg PO BID metformin 500 mg PO DAILY progesterone micronized 200 mg PO BEDTIME sennosides (senna) 8.6 mg PO BEDTIME simethicone 126 mg PO BEDTIME PRN sucralfate 1 g PO BEDTIME HPI Comments Details: 40-year-old female deaf patient presenting complaints of bilateral nipple enlargement and pain. She has a prior history of nipple pain several years ago and subsequently underwent evaluation with mammogram and ultrasound. This revealed no suspicious findings in either breast. In the meantime she had no significant symptoms in either breast until several months ago when she began to the again notice pain. The pain would occur at any time during the day and sometimes even at night.. The pain does increase with palpation of the breasts. She feels that the nipples a very protuberant right greater than left. She denies any discharge from either nipple. She has not undergone a recent mammogram. Her family history is negative for breast cancer. 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 She was born in [place] and never had a period until coming to the [facility] and being placed on the estrogen/progesterone. [facility]LY [facility], [facility] Medical History Constipation Diabetes GERD (gastroesophageal reflux disease) Family History Father Colon cancer Social History Alcohol intake: never Patient Tobacco Use Status: Never used Tobacco Female Reproductive History Menstrual Age of Menarche: 36 Date of last menstrual period: 06/18/25 Total pregnancies: 0 Review of Systems Const All systems reviewed & are unremarkable except as noted in HPI and below Physical Exam Vital Signs: Last Vital Signs BP 120/70 07/05/25 15:23 BMI result Body Mass Index 29.0 Const General: cooperative and no acute distress Nutritional Appearance: well nourished Orientation/consciousness: patient oriented x3 Limitations: no limitations HEENT Head: Yes normocephalic and Yes atraumatic Ears: hearing grossly impaired Chest Other: Right breast: Very prominent and protuberant nipple areolar complex, but complexes soft with no definite palpable nodules appreciated. The remaining breast tissue is also soft with no palpable densities and no overlying skin change. No abnormal enlarged lymph nodes. Left breast: Prominent nipple-areolar complex but less so compared to right side. He remaining breast tissue is soft with no palpable density, skin change, or enlarged lymph nodes. Chest/axillae images: 2 1. Enlarged by areolar complex, protuberant, tender to palpation 2. Enlarged areolar complex, protuberant but less so when compared to the right side Resp Effort & Inspection: normal respiratory effort, no audible wheezes, no cough and no respiratory distress Cardio Jugular venous distension: no JVD GI Inspection: Yes normal to inspection Skin Other: Warm, dry, no rash Neuro General: patient oriented x3 Extrem General: Yes no clubbing, cyanosis or edema Assessment & Plan Assessment & Plan (1) Breast pain: Code(s): N64.4 - Mastodynia Category: Medical (2) Nipple pain: Code(s): N64.4 - Mastodynia Category: Medical Plan 40-year-old female patient with enlargement of both nipple-areolar complexes with no underlying mass appreciated. I recommended further evaluation with mammogram and ultrasound. She will follow up following the studies to review the results and discuss treatment options. I also recommended rolling up machine operator evaluation regarding her questions regarding estrogen and progesterone replacement. Orders: Orders 2 US breast LT limited Today N64.4 - Mastodynia US breast RT limited Today N64.4 - Mastodynia MM diagnostic mammo BI Today N64.4 - Mastodynia Referrals 2 ACID PURIFICATION EQUIPMENT OPERATOR Referral N64.4 - Mastodynia Coding Level of Care Code New Pt Level 4 (68702) Diagnoses Breast pain N64.4 Nipple pain N64.4
[2025-07-05 15:23] VITALS: BP 120/70; BMI 29.0
--- OUTSIDE RECORDS SUMMARY | 2025-07-05 16:12 | XMS_ITS | Encounter Summary ---
Author Organization [employer] Address [address] [place] [address] 7t [place] [address] Care Team Providers Care Excel Expert Name Role Phone Agnes Christopher MD Primary Care Provider [phone]- [phone] Elena Norris OD Unavailable [phone] TiffanieJazmine guerrier Unavailable Encounter Details Date Type Department Care Team (Late Contact Info) Description 03/02/2025 Orders Only [facility] PEDS [address] [place] [address] Angi Prado Social History Tobacco Use Types Packs/Day Years Used Date Smoking Tobacco: Never Passive Smoke Exposure: Never Smokeless Tobacco: Never Alcohol Use Standard Drinks/Week Comments Never 0 (1 standard drink = 0.6 oz pur e alcohol) Depression Answer Date Recorded Patient Health Questionnaire-9 Score 1 09/07/2024 Patient Health Questionnaire-9 Score 1 09/07/2024 Last PHQ-9: Questionnaire Data Not on file 1 11/07/2023 Depression Answer Date Recorded Patient Health Questionnaire-2 Score 0 09/07/2024 Comments Unknown Sex and Gender Information Value Date Recorded Sex Assigned at Female 09/02/2022 10:35 AM EDT Legal Sex Female 10:35 AM EDT Gender Identity Female 09/02/2022 10:35 AM EDT Sexual Orientation Choose not to disclose 2021 10:35 AM EDT 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 Not on fi le Not on file documented as of this encounter Plan of Treatment Upcoming Encounters Date Type Department Care Team (Late st Contact Info) Description 08/17/2025 10:30 AM EDT Office Visit [facility] MEDICINE [address] [place] [address] Agnes Christopher MD [address] [place] [address] documented as of this encounter Procedures Procedure Name Priority Date/Time Associated Diagnosis Comments HPV MRNA E6/E7 REFLEX TO HPV 16, 18/45 Routine 11/10/2024 12:00 AM EST documented in this encounter Results * HPV mRNA E6/E7 w/Reflex to HPV Genotypes 16, 18/45 (11/10/2024 12:00 AM EST) us Historical Provider LAB CYTOLOGY ORDERABLES F inal Result documented in this encounter Visit Diagnoses Not on filedocumented in this encounter Additional Health Concerns Assessment Noted Time PHQ-9 Depression Total Score: 1 09/07/20 24 9:17 AM EST documented as of this encounter Care Teams Excel Expert Relationship Specialty Start Date End Date Agnes Christopher MD [address] [place] [address] PCP - General Family Medicine 06/09/19 Elena Norris OD [address] [place] [address] Optometry 11/10/24 Jazmine Moreno [address] 3rd [place] [address] Gastroenterology 04/01/25 documented as of this encounter
--- OUTSIDE RECORDS SUMMARY | 2025-07-05 16:12 | XMS_ITS | Encounter Summary ---
Author Organization [employer] Address [address] [place] [address] 7 [place] [address] Care Team Providers Care Chain Sales Consultant Name Role Phone Agnes Christopher MD Primary Care Provider [phone] Elena Norris NEO Unavailable [phone] Jazmine Moreno Unavailable Encounter Details Date Type Department Care Team ([facility] Contact Info) Description 06/25/2023 Orders Only [facility] MEDICINE [address] [place] [address] [phone] Agnes Christopher MD [address] [place] [address] [phone] Type 2 diabetes mellitus without complication, unspecified whether correction insulin use ([facility]) (Primary Dx); Bilateral deafness Social History Tobacco Use Types Packs/Day Years [...] Encounters Date Type Department Care Team (Late Contact Info) Description 08/17/2025 10:30 AM EDT Office Visit [facility] MEDICINE [address] [place] [address] [phone] Agnes Christopher MD [address] [place] [address] documented as of this encounter Visit Diagnoses Diagnosis Type 2 diabetes mellitus without complication, unspecified whether correction insulin use ([facility])- Primary Bilateral deafness Unspecified hearing loss documented in this encounter Care Teams Chain Sales Consultant Relationship Specialty Start Date End Date Agnes Christopher MD [address] [place], [place] [phone] PCP - General Family Medicine 06/09/19 Elena Norris OD [address] [place], [place] [phone] Optometry 11/10/[address] [place] [address] Gastroenterology 04/01/25 documented as of this encounter
--- OUTSIDE RECORDS SUMMARY | 2025-07-05 16:12 | XMS_ITS | Encounter Summary ---
Author Organization [employer] Address [address] [facility] 7t [place] [address] Care Team Providers Care Electrical Tester Battery Name Role Phone Agnes Christopher MD Primary Care Provider [phone] MyrnaElena OD Unavailable [phone] Jazmine Moreno Unavailable Reason for Visit * Reason Onset Date Comments Med Refill 05/13/2025 Encounter Details Date Type Department Care Team (Late st Contact Info) Description 05/13/2025 Refill [facility] [address] [place], [place] [phone] Agnes Christopher MD [address] [place], [place] [phone] Type 2 diabetes mellitus without complication, without long-term current use of insulin ([facility]) Social History Tobacco Use Types Packs/Day Years Used Date Smoking Tobacco: Never Passive Smoke Exposure: Never Smokeless Tobacco: Never Alcohol Use Standard Drinks/Week Comments Never 0 (1 standard drink = 0.6 oz pur e alcohol) Depression Answer Date Recorded Patient Health Questionnaire-9 Score 1 09/07/2024 Patient Health Questionnaire-9 Score 1 09/07/2024 Last PHQ-9: Questionnaire Data Not on file 1 11/07/2023 Housing Stability Answer Date Recorded What is your housing situation today? I have alma rosa john 04/08/[address] you li ve. Do you have problems with any of the following? None of the above 04/08/2025 Food Insecurity Answer Date Recorded Within the past 12 months, y ou worried that your food would run out before you got money to buy more: Never True 04/08/2025 Within the past 12 months,th e food you bought just didn't last and you didn't have enough money to get more: Never True 04/2025 Transportation Answer Date Recorded In the past 12 months, has l ack of transportation kept you from medical appts, meetings, work or from getting things needed for daily living? No 04/08/2025 Utilities Answer Date Recorded In the past 12 months, has t he [employer], gas, oil or water company threatened to shut off services in your home? 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 Not on fi le Not on file documented as of this encounter Plan of Treatment Upcoming Encounters Date Type Department Care Team ([facility] st Contact Info) Description 08/17/2025 10:30 AM EDT Office Visit [facility] MEDICINE [address] [place] [address] Agnes Christopher MD [address] [place] [address] documented as of this encounter Visit Diagnoses Diagnosis Type 2 diabetes mellitus without complication, without long-term current use of insulin ([facility]) documented in this encounter Additional Health Concerns Assessment Noted Time PHQ-9 Depression Total Score: 1 09/07/20 24 9:17 AM EST documented as of this encounter Care Teams Electrical Tester Battery Relationship Specialty Start Date End Date Agnes Christopher MD [address] [place] [phone] PCP - General Family Medicine 06/09/19 Elena Norris OD [address] [place] [address] Optometry 11/10/24 Jazmine Moreno [address] [place] [address] Drive 3rd [place] [address] Gastroenterology 04/01/25 documented as of this encounter
--- OUTSIDE RECORDS SUMMARY | 2025-07-05 16:12 | XMS_ITS | Encounter Summary ---
Author Organization [employer] Address [address] [place] [address] 7 [place] [address] Care Team Providers Care Operations Forester Name Role Phone Agnes Christopher MD Primary Care Provider [phone] MyrnaElena OD Unavailable [phone] TiffanieJazmine guerrier Unavailable Reason for Visit * Reason Onset Date Comments Med Refill 01/24/2025 Encounter Details Date Type Department Care Team (Late st Contact Info) Description 01/24/2025 Refill [facility] MEDICINE [address] [place], [place] [phone] Agnes Christopher MD [address] [place], [place] [phone] Primary ovarian failure Social History Tobacco Use Types Packs/Day Years [...] Date 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 Not on fi le Not on file documented as of this encounter Plan of Treatment Upcoming Encounters Date Type Department Care Team ([facility] st Contact Info) Description 08/17/2025 10:30 AM EDT Office Visit [facility] MEDICINE [address] [place] [address] Agnes Christopher MD [address] [place] [address] documented as of this encounter Visit Diagnoses Diagnosis Primary ovarian failure Other ovarian failure documented in this encounter Additional Health Concerns Assessment Noted Time PHQ-9 Depression Total Score: 1 09/07/20 24 9:17 AM EST documented as of this encounter Care Teams Operations Forester Relationship Specialty Start Date End Date Agnes Christopher MD [address] [place] [address] PCP - General Family Medicine 06/09/19 Elena Norris OD [address] [place] [address] Optometry 11/10/24 Jazmine Moreno [address] [place] [address] Drive 3rd [place] [address] Gastroenterology 04/01/25 documented as of this encounter
--- OUTSIDE RECORDS SUMMARY | 2025-07-05 16:12 | XMS_ITS | Encounter Summary ---
Author Organization [employer] [facility] Address [address] [place] [address] 7 [place] [address] Care Team Providers Care Blade Aligner Name Role Phone Agnes Christopher MD Primary Care Provider [phone] MyrnaElena OD Unavailable [phone] Jazmine Moreno Unavailable Encounter Details Date Type Department Care Team (Latest Contact Info) Description 09/24/2019 Abstract [facility] CONVERSIONS Dental, Provider, DDS Social History Tobacco Use Types Packs/Day Years Used Date Smoking Tobacco: Never Assessed Comments Unknown Sex and Gender Information Value [...] Description 08/17/2025 10:30 AM EDT Office Visit [facility] MEDICINE [address] [place], [place] [phone] Agnes Christopher MD [address] [place], [place] [phone] documented as of this encounter Visit Diagnoses Not on filedocumented in this encounter Care Teams Blade Aligner Relationship Specialty Start Date End Date Agnes Christopher MD [address] [place], [place] [phone] PCP - General Family Medicine 06/09/19 Elena Norris OD [address] [place] [address] Optometry 11/10/24 Jazmine Moreno [address]rd [place] [address] Gastroenterology 04/01/25 documented as of this encounter
--- OUTSIDE RECORDS SUMMARY | 2025-07-05 16:12 | XMS_ITS | Encounter Summary ---
Author Organization [employer] Address [address] [place] [address] 7 [place] [address] Care Team Providers Care Product Grader Name Role Phone Agnes Christopher MD Primary Care Provider [phone]- [phone] MyrnaElena OD Unavailable [phone] Jazmine Moreno Unavailable Reason for Visit * Reason Onset Date Comments Med Refill 06/01/2025 Encounter Details Date Type Department Care Team (Late st Contact Info) Description 06/01/2025 Refill [facility] MEDICINE [address] [place], [place] [phone] Agnes Christopher MD [address] [place], [place] [phone] Type 2 diabetes mellitus without complication, without long-term current use of insulin ([facility]) Social History Tobacco Use Types Packs/Day Years [...] the past 12 months, has t he [employer], gas, oil or water company threatened to [...] 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 Not on fi le Not on file documented as of this encounter Plan of Treatment Upcoming Encounters Date Type Department Care Team ([facility] st Contact Info) Description 08/17/2025 10:30 AM EDT Office Visit [facility] MEDICINE [address] [place] [address] Agnes Christopher MD [address] [place] [address] documented as of this encounter Visit Diagnoses Diagnosis Type 2 diabetes mellitus without complication, without long-term current use of insulin ([facility]) documented in this encounter Additional Health Concerns Assessment Noted Time PHQ-9 Depression Total Score: 1 09/07/20 24 9:17 AM EST documented as of this encounter Care Teams Product Grader Relationship Specialty Start Date End Date Agnes Christopher MD [address] [place] [address] PCP - General Family Medicine 06/09/19 Elena Norris OD [address] [place] [address] Optometry 11/10/24 Jazmine Moreno [address] [place] [address] Drive [address] [place] [address] Gastroenterology 04/01/25 documented as of this encounter
--- OUTSIDE RECORDS SUMMARY | 2025-07-05 16:12 | XMS_ITS | Encounter Summary ---
Author Organization [employer] Address [address] [place] [address] 7 [place] [address] Care Team Providers Care Wireless Sales Manager Name Role Phone Agnes Christopher MD Primary Care Provider [phone]- [phone] MyrnaElena OD Unavailable [phone] Jazmine Moreno Unavailable Reason for Referral * Consultation (Routine) - Closed Specialty Diagnoses / Procedures Referred By Jailene south Referred To Contact Gastroenterology Diagnoses Epigastric pain Agnes Christopher MD [address] [place] [address] Phone: tel: fax: [facility] Referral ID Status Reason Start Date Expiration Date V isits Requested Visits Authorized [id number] Closed Specialty Services Required 12/06/2024 12/06/2025 1 1 Encounter Details Date Type Department Care Team (Late st Contact Info) Description 12/06/2024 Orders Only [facility] MEDICINE [address] [place], [place] [phone] Agnes Christopher MD [address] [place] [address] Epigastric pain (Primary Dx); Generalized abdominal pain; Gastroesophageal reflux disease, unspecified whether esophagitis present Social History Tobacco Use Types Packs/Day Years [...] Date 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 Not on fi le Not on file documented as of this encounter Plan of Treatment Upcoming Encounters Date Type Department Care Team (Late st Contact Info) Description 08/17/2025 10:30 AM EDT Office Visit [facility] MEDICINE [address] [place] [address] Agnes Christopher MD [address] [place] [address] Scheduled Referrals Name Type Priority Associated Diagnoses Order Schedule Referral to Gastroenterology Outpatient Referral Routine Epigastric pain Expected: 12/06/2024 (Approximate), Expires: 12/06/2025 documented as of this encounter Visit Diagnoses Diagnosis Epigastric pain- Primary Abdominal pain, epigastric Generalized abdominal pain Abdominal pain, generalized Gastroesophageal reflux disease, unspecified whether esophagitis present documented in this encounter Additional Health Concerns Assessment Noted Time PHQ-9 Depression Total Score: 1 09/07/20 24 9:17 AM EST documented as of this encounter Care Teams Wireless Sales Manager Relationship Specialty Start Date End Date Agnes Christopher MD [address] [place] [address] PCP - General Family Medicine 06/09/19 Elena Norris OD [address] [place] [address] Optometry 11/10/24 Jazmine Moreno [address] [facility] [address] 3rd Floor [place] [address] Gastroenterology 04/01/25 documented as of this encounter
--- OUTSIDE RECORDS SUMMARY | 2025-07-05 16:12 | XMS_ITS | Encounter Summary ---
Author Organization [employer] Address [address] [place] [address] 7t [place] [address] Care Team Providers Care Nail Specialist Name Role Phone Agnes Christopher MD Primary Care Provider [phone]- [phone] MyrnaElena OD Unavailable [phone] Jazmine Moreno Unavailable Encounter Details Date Type Department Care Team (Late st Contact Info) Description 03/31/2025 Orders Only [facility] [address] [place], [place] [phone] Agnes Christopher MD [address] [place], [place] [phone] Gastroesophageal reflux disease, unspecified whether esophagitis present (Primary Dx) Social History Tobacco Use Types [...] Date 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 Not on fi le Not on file documented as of this encounter Plan of Treatment Upcoming Encounters Date Type Department Care Team (Late st Contact Info) Description 08/17/2025 10:30 AM EDT Office Visit [facility] [address] [place] [address] Agnes Christopher MD [address] [place] [address] documented as of this encounter Visit Diagnoses Diagnosis Gastroesophageal reflux disease, unspecified whether esophagitis present- Primary documented in this encounter Additional Health Concerns Assessment Noted Time PHQ-9 Depression Total Score: 1 09/07/20 24 9:17 AM EST documented as of this encounter Care Teams Nail Specialist Relationship Specialty Start Date End Date Agnes Christopher MD [address] [place] [address] PCP - General Family Medicine 06/09/19 Elena Norris OD [address] [place] [address] Optometry 11/10/24 Jazmine Moreno [address] [place] [address] Drive 3rd [place] [address] Gastroenterology 04/01/25 documented as of this encounter
--- OUTSIDE RECORDS SUMMARY | 2025-07-05 16:12 | XMS_ITS | Encounter Summary ---
Author Organization [employer] Address 75 [facility] 7 [place] [address] Care Team Providers Care Sales Facilitator Name Role Phone Agnes Christopher MD Primary Care Provider [phone]- [phone] MyrnaElena OD Unavailable [phone] TiffanieJazmine guerrier Unavailable Reason for Visit * Reason Onset Date Comments Med Refill 06/07/2025 Encounter Details Date Type Department Care Team (Late st Contact Info) Description 06/07/2025 Refill [facility] [address] [place], [place] [phone] Agnes Christopher MD [address] [place], [place] [phone] Vitamin D deficiency Social History Tobacco Use Types Packs/Day Years [...] the past 12 months, has t he electric, gas, oil or water company threatened to [...] 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 Not on file documented as of this encounter Plan of Treatment Upcoming Encounters Date Type Department Care Team (Late st Contact Info) Description 08/17/2025 10:30 AM EDT Office Visit [facility] [address] [place] [phone] Agnes Christopher MD [address] [place] [phone] documented as of this encounter Visit Diagnoses Diagnosis Vitamin D deficiency documented in this encounter Additional Health Concerns Assessment Noted Time PHQ-9 Depression Total Score: 1 09/07/20 24 9:17 AM EST documented as of this encounter Care Teams Sales Facilitator Relationship Specialty Start Date End Date Agnes Christopher MD [address] [place], [place] PCP - General Family Medicine 06/09/19 Elena Norris OD [address] [place] [address] Optometry 11/10/24 Jazmine Moreno [address] 3rd [place] [address] Gastroenterology 04/01/25 documented as of this encounter
--- OUTSIDE RECORDS SUMMARY | 2025-07-05 16:12 | XMS_ITS | Encounter Summary ---
Author Organization [employer] Address [address] [place] [address] 7t [place] [address] Care Team Providers Care Road Oiling Truck Driver Name Role Phone Agnes Christopher MD Primary Care Provider [phone]- [phone] MyrnaTimothyElena OD Unavailable [phone] TiffanieJazmine guerrier Unavailable Encounter Details Date Type Department Care Team (Late Contact Info) Description 05/21/2024 Orders Only [facility] [address] [place] [address] [phone] Agnes Christopher MD [address] [place] [address] [phone] Bacterial vaginosis (Primary Dx) Social History Tobacco [...] Description 08/17/2025 10:30 AM EDT Office Visit [facility] [address] [place] [address] [phone] Agnes Christopher MD [address] [place] [phone] documented as of this encounter Visit Diagnoses Diagnosis Bacterial vaginosis- Primary Unspecified vaginitis and vulvovaginitis documented in this encounter Care Teams Road Oiling Truck Driver Relationship Specialty Start Date End Date Agnes Christopher MD [address] [place] [address] PCP - General Family Medicine 06/09/19 Elena Norris OD [address] [place] [phone] Optometry 11/10/24 Jazmine Moreno [address] [place] [address] 3rd [place] [address] Gastroenterology 04/01/25 documented as of this encounter
--- OUTSIDE RECORDS SUMMARY | 2025-07-05 16:12 | XMS_ITS | Encounter Summary ---
Author Organization [employer] Address [address] [place] [address] 7 [place] [address] Care Team Providers Care Zipper Machine Operator Name Role Phone Agnes Christopher MD Primary Care Provider [phone]- [phone] MyrnaElena OD Unavailable [phone] Jazmine Moreno Unavailable Encounter Details Date Type Department Care Team (Late Contact Info) Description 09/27/2024 Orders Only [facility] [address] [place] [phone] Agnes Christopher MD [address] [place] [address] [phone] Social History Tobacco Use Types Packs/Day Years Used Date Smoking Tobacco: Never Passive Smoke Exposure: Never Smokeless Tobacco: Never Depression Answer Date Recorded Patient Health Questionnaire-9 [...] Description 08/17/2025 10:30 AM EDT Office Visit [facility] [address] [place] [address] Agnes Christopher MD [address] [place] [address] documented as of this encounter Visit Diagnoses Not on filedocumented in this encounter Additional Health Concerns Assessment Noted Time PHQ-9 Depression Total Score: 1 09/07/20 24 9:17 AM EST documented as of this encounter Care Teams Zipper Machine Operator Relationship Specialty Start Date End Date Agnes Christopher MD [address] [place] [address] PCP - General Family Medicine 06/09/19 Elena Norris OD [address] [place] [phone] Optometry 11/10/24 Jazmine Moreno [address] [place] [address] Drive 3rd [place] [address] Gastroenterology 04/01/25 documented as of this encounter
--- OUTSIDE RECORDS SUMMARY | 2025-07-05 16:12 | XMS_ITS | Encounter Summary ---
Author Organization [employer] Address 75 [facility] 7 [place] [address] Care Team Providers Care Freight And Passenger Agent Name Role Phone Agnes Christopher MD Primary Care Provider +- [phone] MyrnaElena OD Unavailable [phone] Jazmine Moreno Unavailable Encounter Details Date Type Department Care Team (Late st Contact Info) Description 06/27/2025 Telephone [facility] [address] [place] [address] Agnes Christopher MD [address] [place] [address] Social History Tobacco Use Types Packs/Day Years [...] Date Recorded Patient Health Questionnaire-2 Score 0 06/27/2025 Internet Access Answer Date Recorded Internet Access [...] 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 Question Answer Date of Assessment Author Little interest or pleasure in doing things Not at all 06/27/2025 4:14 PM EDT Steve Christopher MD Feeling down, depressed, or hopeless Not at all 06/27/2025 4:14 PM EDT Steve Christopher MD Patient Health Questionnaire-2 Score 0 06/27/2025 4:14 PM EDT Colette Christopher MD documented as of this encounter Miscellaneous Notes * Telephone Encounter - Maddie Mcghee [place] - 06/30/2025 1:28 PM EDT I faxed the notes to Gastroenterology on [facility] * Telephone Encounter - Agnes Christopher MD - 06/27/2025 9:47 AM EDT Please fax today's note to Matt Barrera [facility] at [facility]. Thank you. documented in this encounter Plan of Treatment Upcoming Encounters Date Type Department Care Team (Late st Contact Info) Description 08/17/2025 10:30 AM EDT Office Visit [facility] [address] [place] [address] Agnes Christopher MD [address] [place] [address] documented as of this encounter Visit Diagnoses Not on filedocumented in this encounter Additional Health Concerns Assessment Noted Time PHQ-9 Depression Total Score: 1 09/07/20 24 9:17 AM EST documented as of this encounter Care Teams Freight And Passenger Agent Relationship Specialty Start Date End Date Agnes Christopher MD [address] [place] [address] PCP - General Family Medicine 06/09/19 Elnea Norris OD [address] [place] [address] Optometry 11/10/24 Jazmine Moreno [address] [place] [address] 3rd [place] [address] Gastroenterology 04/01/25 documented as of this encounter
--- OUTSIDE RECORDS SUMMARY | 2025-07-05 16:12 | XMS_ITS | Encounter Summary ---
Author Organization [employer] Address [address] [place] [address] 7t [place] [address] Care Team Providers Care Meter Inspector Name Role Phone Agnes Christopher MD Primary Care Provider [phone]- [phone] MyrnaElena OD Unavailable [phone] TiffanieJazmine guerrier Unavailable Reason for Visit * Reason Comments Med Refill Encounter Details Date Type Department Care Team ([facility] st Contact Info) Description 03/17/2024 Refill [facility] [address] [place], [place] [phone] Rui Villegas MD [address] [place] [address] [phone] Social History Tobacco Use Types Packs/Day Years [...] AM EDT documented as of this encounter Miscellaneous Notes * Telephone Encounter - Agnes Christopher MD - 03/17/2024 1:47 PM EDT Please let pt know I changed her vit d from once a week to daily. She is Deaf. Thank you. documented in this encounter Plan of Treatment Upcoming Encounters Date Type Department Care Team (Late st Contact Info) Description 08/17/2025 10:30 AM EDT Office Visit [facility] [address] [place] [address] Agnes Christopher MD [address] [place] [address] documented as of this encounter Visit Diagnoses Not on filedocumented in this encounter Care Teams Meter Inspector Relationship Specialty Start Date End Date Agnes Christopher MD [address] [place], [place] [phone] PCP - General Family Medicine 06/09/19 Elena Norris OD [address] [place] [address] Optometry 11/10/24 Jazmine Moreno [address] [place] [address] 3rd [place] [address] Gastroenterology 04/01/25 documented as of this encounter
--- OUTSIDE RECORDS SUMMARY | 2025-07-05 16:12 | XMS_ITS | Clinical Summary ---
Author Organization [employer] Address [address] [place] [address] 7 [place] [address] Care Team Providers Care Acquisition Specialist Name Role Phone Agnes Christopher MD Primary Care Provider [phone] Elena Norris OD Unavailable [phone] TiffanieStephona Unavailable Allergies No known active allergies Medications glucose blood (FREESTYLE LITE) test stripIndications :Type 2 diabetes mellitus without complication, without long-term current use of insulin ([facility]) test blood sugar twice a day 50 each 11 08/20/20 23 Active cholecalciferol (Vitamin D High Potency) 25 MCG (1000 UT) capsuleIndicatio ns:Vitamin D deficiency TAKE 1 CAPSULE BY MOUTH EVERY DAY 90 capsule 05/11/20 24 Active simethicone (Mylanta Gas Minis) 41.667 MG chewable tabletIndication s:Epigastric pain Take 1 tab po bid prn 60 tablet 1 12/06/19 25 Active estradiol (Estrace) 2 MG tabletIndication s:Primary ovarian failure TAKE 2 TABLETS BY MOUTH EVERY DAY 180 tablet 3 01/12/20 25 Active famotidine (Pepcid) 20 MG tabletIndication s:Gastroesophage al reflux disease, unspecified whether esophagitis present 03/29/20 25 Active pantoprazole (ProtoNix) 40 MG EC tabletIndication s:Gastroesophage al reflux disease, unspecified whether esophagitis present 03/29/20 25 Active progesterone 200 MG capsuleIndicatio ns:Primary ovarian failure TAKE 1 CAPSULE BY MOUTH EVERY DAY FOR 12 DAYS EVERY 28 DAYS 36 capsule 11 04/07/20 25 Active semaglutide (Ozempic, 0.25 or 0.5 MG/DOSE,) 2 MG/1.5ML solution pen-injectorIndi cations:Type 2 Diabetes Mellitus Inject 0.25 mg subcutaneously q week x 4 weeks, then increased to 0.5mg subcutaneously q week after 3 mL 3 04/08/20 25 Active metroNIDAZOLE (Metrogel) 0.75 % vaginal gelIndications:B acterial Vaginosis Insert one applicator into vagina at bedtime for 7 nights 45 g 04/08/20 25 Active atorvastatin (Lipitor) 20 MG tabletIndication s:Type 2 diabetes mellitus without complication, unspecified whether skilled nursing insulin use ([facility]) TAKE 1 TABLET BY MOUTH EVERY DAY 90 tablet 05/13/20 25 Active TRUEplus Lancets 33G miscIndications: Type 2 diabetes mellitus without complication, without long-term current use of insulin ([facility]) Test blood sugar twice a day 100 each 05/16/20 25 Active glucose blood (FREESTYLE LITE) test stripIndications :Type 2 diabetes mellitus without complication, without long-term current use of insulin ([facility]) TEST BLOOD SUGARS TWICE A DAY 50 each 05/16/20 25 Active cholecalciferol (Vitamin D-3) 25 MCG tabletIndication s:Vitamin D deficiency TAKE 1 TABLET BY MOUTH EVERY DAY 90 tablet 3 05/25/20 25 Active senna (Senokot) 8.6 MG tabletIndication s:Constipation, unspecified constipation type TAKE 1 TO 2 TABLETS BY MOUTH DAILY NEEDED FOR CONSTIPATION 60 tablet 2 05/26/20 25 Active Dulaglutide (Trulicity) 0.75 MG/0.5ML solution auto-injectorInd ications:Type 2 diabetes mellitus without complication, without long-term current use of insulin ([facility]) Inject 0.75 mg under the skin 1 (one) time per week. 2 mL 3 06/02/20 25 Active glipiZIDE 2.5 MG tabletIndication s:Type 2 diabetes mellitus without complication, without long-term current use of insulin ([facility]) Take 1 tablet (2.5 mg) by mouth with breakfast. 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 Chronic RIGHT nipple swelling now with significant pain and edema. 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 Mammo and US for similar symptoms but less swelling 02/2021 IMPRESSION:1. No mammographic evidence of malignancy or focal inflammatory changes. 2. Bilateral subareolar benign milk of calcium calcifications.3. Borderline bilateral subareolar duct ectasia. BI-RADS 2: Benign Will refer to breast surgery for work up and see if there is intervention to relieve the swelling and tenderness. Orders: Referral to Breast Surgery; Future Bacterial vaginosis 04/08/2025 Assessment & Plan (04/12/2025 5:43 PM EDT): Orders: metroNIDAZOLE (Metrogel) 0.75 % vaginal gel; Insert one applicator into vagina at bedtime for 7 nights Chronic gastritis 03/22/2025 Overview (06/27/2025): Chronic gastritis, since at least early 2023. Stopped Metformin previously and Trulicity in the past without relief and worsening diabetes. Pt cut out all triggering foods. Insurance wout not cover another GLP-1. -Renal US 09/16/24 IMPRESSION: Normal exam -seen by GI Generalized, right lateral mid abd pain. No RUQ pain, no pelvic pain and no evidence of SBO or acute abdomen. Unknown etiology, differential includes renal calculi, UTI, IBS, H. Pylori, and others. POCT urine negative. Normal KUB 08/20/23. -H. Pylori breath test 09/07/24 and 04/14/25 negative -UA normal 11/15/24 -check transglutaminase, vitamin B12, folate, vitamin-D level and lipase. -avoid dietary triggers and late night snacking. Staying upright for minimum 3 hours after meals discussed with patient. - upper GI with barium swallow ordered by GI 03/29/25 scheduled for July 2025 -no improvement with omeprazole or pantoprazole -Nexium started by GI 06/21/25 with follow up scheduled -will avoid GIP1 and metformin and trial glipizide to see if this helps alleviate symptoms Assessment & Plan (06/27/2025 9:46 AM EDT): Chronic gastritis, since at least early 2023. Stopped Metformin previously and Trulicity in the past without relief and worsening diabetes. Pt cut out all triggering foods. Insurance wout not cover another GLP-1. -Renal US 09/16/24 IMPRESSION: Normal exam -seen by GI Generalized, right lateral mid abd pain. No RUQ pain, no pelvic pain and no evidence of SBO or acute abdomen. Unknown etiology, differential includes renal calculi, UTI, IBS, H. Pylori, and others. POCT urine negative. Normal KUB 08/20/23. -H. Pylori breath test 09/07/24 and 04/14/25 negative -UA normal 11/15/24 -check transglutaminase, vitamin B12, folate, vitamin-D level and lipase. -avoid dietary triggers and late night snacking. Staying upright for minimum 3 hours after meals discussed with patient. - upper GI with barium swallow ordered by GI 03/29/25 scheduled for July 2025 -no improvement with omeprazole or pantoprazole -Nexium started by GI 06/21/25 with follow up scheduled -will avoid GIP1 and metformin and trial glipizide to see if this helps alleviate symptoms Assessment & Plan (04/20/2025 9:32 AM EDT): Chronic gastritis, since at least early 2023. Stopped Metformin previously and Trulicity in the past without relief and worsening diabetes. Pt cut out all triggering foods. -Renal US 09/16/24 IMPRESSION: Normal exam -seen by GI Generalized, right lateral mid abd pain. No RUQ pain, no pelvic pain and no evidence of SBO or acute abdomen. Unknown etiology, differential includes renal calculi, UTI, IBS, H. Pylori, and others. POCT urine negative. Normal KUB 08/20/23. -H. . Pylori breath test 09/07/24 and 04/14/25 negative -prescribed Omeprazole to trial for reflux 09/07/24, then increased to high dose without improvement. -UA normal 11/15/24 -seen by Dr. Tiffanie SUMNER 03/29/25 Discontinue omeprazole. Start pantoprazole 40 mg daily started after H.pylori test 04/12/25 -check transglutaminase, vitamin B12, folate, vitamin-D level and lipase. -avoid dietary triggers and late night snacking. Staying upright for minimum 3 hours after meals discussed with patient. - upper GI with barium swallow ordered by GI 03/29/25. Follow-up in 2 months with GI sooner on as needed basis. Assessment & Plan (04/12/2025 5:43 PM EDT): Chronic gastritis, ongoing for over a year. Stopped Metformin previously and Trulicity in the past without relief and worsening diabetes. Pt cut out all triggering foods. -Breath H. Pylori test 09/07/24 negative -Renal US 09/16/24 IMPRESSION: Normal exam -seen by GI Generalized, right lateral mid abd pain. No RUQ pain, no pelvic pain and no evidence of SBO or acute abdomen. Unknown etiology, differential includes renal calculi, UTI, IBS, H. Pylori, and others. POCT urine negative. Normal KUB 08/20/23. -ordered breath . Pylori test 09/07/24 negative Renal US 09/16/24 IMPRESSION: Normal exam -prescribed Omeprazole to trial for reflux 09/07/24 -UA normal 11/15/24 -seen by Dr. Tiffanie SUMNER 03/29/25 Discontinue omeprazole. Start pantoprazole, however patient will take famotidine for 2 weeks prior to H pylori testing. Hold famotidine 24 hours and NPO for 1 hour priorto testing. Will check transglutaminase, vitamin B12, folate, vitamin-D level and lipase. Patient will avoid dietary triggers and late night snacking. Staying upright for minimum 3 hours after meals discussed with patient. Patient will also be sent for upper GI with barium swallow. Follow-up in 2 months, sooner on as needed basis. Patient is agreeable to current plan of care and verbalizes understanding of instructions. She was given the opportunity to ask questions and all questions answered. Assessment & Plan (03/23/2025 5:41 PM EDT): Chronic gastritis, ongoing for over a year. Stopped Metformin previously and Trulicity in the past without relief and worsening diabetes. Pt cut out all triggering foods. -On Omeprazole and increased to 20mg twice a day. Then insurance would not cover, will change to 40mg daily. -Breath H. Pylori test 09/07/24 negative -Renal US 09/16/24 IMPRESSION: Normal exam -Has GI intake 03/29/25. Papanicolaou smear for cervical cancer screening 09/16/2024 Overview (12/09/2024): 06/09/2019 NILM, HRHPV Done 11/10/24 NILM, HPV negative Dyslipidemia 09/07/2024 Overview (04/08/2025): Lab Results Component Value Date CHOL 136 09/07/2024 CHOL 199 05/11/2024 TRIG 84 09/07/2024 TRIG 69 05/11/2024 TRIG 118 12/05/2022 HDL 53 09/07/2024 HDL 58 05/11/2024 LDLCHOLCAL 67 09/07/2024 LDLCHOLCAL 128 (H) 05/11/2024 -continue lifestyle modification -Start Atorvastatin 20 mg 05/11/24 -[facility] 09/07/24, ordered repeat lipid panel. Assessment & Plan (09/07/2024 9:30 AM EST): Lab Results Component Value Date CHOL 199 05/11/2024 TRIG 69 05/11/2024 TRIG 118 12/05/2022 HDL 58 05/11/2024 LDLCHOLCAL 128 (H) 05/11/2024 -continue lifestyle modification -Start Atorvastatin 20 mg 05/11/24 -seen in [facility] 09/07/24, ordered repeat lipid panel. 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 Discussed adoption as an option. 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 Discussed adoption as an option. Constipation 05/11/2024 Overview (05/11/2024): -chronic recurring constipation -prescribed Sennoside 05/11/24 Assessment & Plan (05/11/2024 9:50 AM EDT): -chronic recurring constipation -prescribed Sennoside 05/11/24 Vitamin D deficiency 05/11/2024 Preventative health care 09/01/2023 Overview (11/10/2024): -next physical exam due after 05/11/2025 -eye care facilitated by [facility] -dental home is 's dentist, not sure of name -health care proxy given and filed 05/11/24 Assessment & Plan (05/11/2024 9:42 AM EDT): -next physical exam due after 05/11/2025 -eye care facilitated by [facility] , referral placed 05/10/24 -dental home is 's dentist, not sure of name -health care proxy given and filed 05/11/24 Cardiac murmur 04/09/2023 Overview (08/14/2023): Echocardiogram 08/13/23 normal with EF 55-60% Assessment & Plan (05/11/2024 9:01 AM EDT): Echocardiogram 08/13/23 normal with EF 55-60% Assessment & Plan (08/27/2023 1:53 PM EDT): Echocardiogram 08/13/23 normal with EF 55-60% Assessment & Plan (08/20/2023 9:05 AM EDT): Echocardiogram 08/13/23 normal with EF 55-60% History of migraine with aura 11/19/2022 Type 2 diabetes mellitus without complication Overview (06/27/2025): Diagnosed 01/2021 based on non-fasting glucose of 404 and A1c 10.1% -anti islet cell Ab and AGATHA 65 antibodies negative Lab Results Component Value Date HGBA1C 6.6 (A) 04/08/2025 HGBA1C 6.0 11/10/2024 HGBA1C 6.3 (H) 09/07/2024 Lab Results Component Value Date CREATININE 0.77 09/07/2024 EGFR >60 09/07/2024 MICROALBCREU 5.2 09/07/2024 LDLCHOLCAL 67 09/07/2024 -Blood pressure is at goal of <140/90 per JNC 8 guidelines. -Importance of low-fat, low cholesterol, ADA diet discussed. Importance of moderate physical activity discussed. -Statin Therapy: continue Atorvastatin 20 mg -DM foot exam: completed 05/11/24 -Trulicity once a week, that was started on 01/23/23 but she is having lots of nausea and stomach upset, we tried to stop this in the past but her blood sugars were uncontrolled. We retried it but she is still having significant nausea so discontinued 06/27/25 -Metformin discontinued 04/07/25 due to stomach upset and nausea with vomiting -Ozempic denied 06/02/25 by insurance including appeal -start glipizide 2.5mg with firs meal of the day 06/27/25 Assessment & Plan (06/27/2025 9:46 AM EDT): Diagnosed 01/2021 based on non-fasting glucose of 404 and A1c 10.1% -anti islet cell Ab and AGATHA 65 antibodies negative Lab Results Component Value Date HGBA1C 6.6 (A) 04/08/2025 HGBA1C 6.0 11/10/2024 HGBA1C 6.3 (H) 09/07/2024 Lab Results Component Value Date CREATININE 0.77 09/07/2024 EGFR >60 09/07/2024 MICROALBCREU 5.2 09/07/2024 LDLCHOLCAL 67 09/07/2024 -Blood pressure is at goal of <140/90 per JNC 8 guidelines. -Importance of low-fat, low cholesterol, ADA diet discussed. Importance of moderate physical activity discussed. -Statin Therapy: continue Atorvastatin 20 mg -DM foot exam: completed 05/11/24 -Trulicity once a week, that was started on 01/23/23 but she is having lots of nausea and stomach upset, we tried to stop this in the past but her blood sugars were uncontrolled. We retried it but she is still having significant nausea so discontinued 06/27/25 -Metformin discontinued 04/07/25 due to stomach upset and nausea with vomiting -Ozempic denied 06/02/25 by insurance including appeal -start glipizide 2.5mg with firs meal of the day 06/27/25 Orders: glipiZIDE 2.5 MG tablet; Take 1 tablet (2.5 mg) by mouth with breakfast. Assessment & Plan (06/06/2025 11:45 AM EDT): Diagnosed 01/2021 based on non-fasting glucose of 404 and A1c 10.1% -anti islet cell Ab and AGATHA 65 antibodies negative -now off meds due to had A1c at goal and was having significant nausea and vomiting , now BS reading high . Lab Results Component Value Date HGBA1C 6.6 (A) 04/08/2025 HGBA1C 6.0 11/10/2024 HGBA1C 6.3 (H) 09/07/2024 Lab Results Component Value Date CREATININE 0.77 09/07/2024 EGFR >60 09/07/2024 MICROALBCREU 5.2 09/07/2024 LDLCHOLCAL 67 09/07/2024 -Blood pressure is at goal of <140/90 per JNC 8 guidelines. -Importance of low-fat, low cholesterol, ADA diet discussed. Importance of moderate physical activity discussed. -Statin Therapy: continue Atorvastatin 20 mg -DM foot exam: completed 05/11/24 -Trulicity once a week, that was started on 01/23/23 but she is having lots of nausea and stomach upset, we tried to stop this in the past but her blood sugars were uncontrolled. We retried it but she is still having significant nausea so discontinued -Metformin discontinued 04/07/25 due to stomach upset and nausea with vomiting -trial of ozempic 0.25 x 1 month then 0.5 started 04/08/26, PA pending as of 04/20/25. Will follow up with PA department and let her know. -Ozempic denied 06/02/25. Will try Trulicity again and see how her stomach does. Assessment & Plan (04/20/2025 9:20 AM EDT): Diagnosed 01/2021 based on non-fasting glucose of 404 and A1c 10.1% -anti islet cell Ab and AGATHA 65 antibodies negative Lab Results Component Value Date HGBA1C 6.0 11/10/2024 HGBA1C 6.3 (H) 09/07/2024 HGBA1C 6.3 (H) 05/11/2024 Lab Results Component Value Date CREATININE 0.77 09/07/2024 EGFR >60 09/07/2024 MICROALBCREU 5.2 09/07/2024 LDLCHOLCAL 67 09/07/2024 -Blood pressure is at goal of <140/90 per JNC 8 guidelines. -Importance of low-fat, low cholesterol, ADA diet discussed. Importance of moderate physical activity discussed. -Statin Therapy: continue Atorvastatin 20 mg -DM foot exam: completed 05/11/24 -Trulicity once a week, that was started on 01/23/23 but she is having lots of nausea and stomach upset, we tried to stop this in the past but her blood sugars were uncontrolled. We retried it but she is still having significant nausea so discontinued -Metformin discontinued 04/07/25 due to stomach upset and nausea with vomiting -trial of ozempic 0.25 x 1 month then 0.5 started 04/08/26, PA pending as of 04/20/25 Assessment & Plan (04/12/2025 5:43 PM EDT): Diagnosed 01/2021 based on non-fasting glucose of 404 and A1c 10.1% -anti islet cell Ab and AGATHA 65 antibodies negative Lab Results Component Value Date HGBA1C 6.0 11/10/2024 HGBA1C 6.3 (H) 09/07/2024 HGBA1C 6.3 (H) 05/11/2024 Lab Results Component Value Date CREATININE 0.77 09/07/2024 EGFR >60 09/07/2024 MICROALBCREU 5.2 09/07/2024 LDLCHOLCAL 67 09/07/2024 -Blood pressure is at goal of <140/90 per JNC 8 guidelines. -Importance of low-fat, low cholesterol, ADA diet discussed. Importance of moderate physical activity discussed. -Trulicity once a week, that was started on 01/23/23 but she is having lots of nausea and stomach upset, discontinued -Metformin discontinued 04/07/25 due to stomach upset -trial of ozempic 0.25 x 1 month then 0.5 started 04/08/26 -DM foot exam: completed 05/11/24 -Statin Therapy: continue Atorvastatin 20 mg Orders: semaglutide (Ozempic, 0.25 or 0.5 MG/DOSE,) 2 MG/1.5ML solution pen-injector; Inject 0.25 mg subcutaneously q week x 4 weeks, then increased to 0.5mg subcutaneously q week after POCT glucose manually resulted POCT glycosylated hemoglobin (Hgb A1c) Assessment & Plan (09/07/2024 9:35 AM EST): Not controlled. Diagnosed 01/2021 based on non-fasting glucose of 404 and A1c 10.1% A1c quickly Normalized to 5.9 07/2021 with insulin, metformin and Trulicity -anti islet cell Ab and AGATHA 65 antibodies negative - Lab Results Component Value Date HGBA1C 6.3 (H) 05/11/2024 HGBA1C 6.6 (A) 05/11/2024 HGBA1C 7.2 (A) 07/10/2023 - Lab Results Component Value Date CREATININE 0.66 05/11/2024 EGFR >60 05/11/2024 LDLCHOLCAL 128 (H) 05/11/2024 - Lantus Solstar discontinued 10/10/2021 due to controlled BS - metformin 500 mg daily discontinued 02/25/2022 due controlled BS -Trulicity discontinued 07/2022 due to controlled BS -Blood pressure is at goal of <140/90 per JNC 8 guidelines. -Importance of low-fat, low cholesterol, ADA diet discussed. Importance of moderate physical activity discussed. -Restart Trulicity once a week 01/23/23. -Start Metformin ER 500mg daily on 07/10/2023. -A1c improved to 6.6% today, 05/11/24 from previous 7.4% 01/23/23. -Continue Trulicity once a week, that was started on 01/23/23. -Encouraged Pt to be compliant with Trulicity. -Continue Metformin ER 500mg daily on 07/10/2023. -DM foot exam: completed 05/11/24 Statin Therapy: Start Atorvastatin 20 mg -Seen in [facility] 09/07/24, ordered A1C, HFP, BMP and FLP Assessment & Plan (05/11/2024 9:59 AM EDT): Not controlled. Diagnosed 01/2021 based on non-fasting glucose of 404 and A1c 10.1% A1c quickly Normalized to 5.9 07/2021 with insulin, metformin and Trulicity -anti islet cell Ab and AGATHA 65 antibodies negative Lab Results Component Value Date HGBA1C 7.2 (A) 07/10/2023 HGBA1C 7.4 (A) 01/23/2023 HGBA1C 6.6 (H) 12/05/2022 - Lab Results Component Value Date CREATININE 0.65 12/05/2022 EGFR 117 12/05/2022 - Lantus Solstar discontinued 10/10/2021 due to controlled BS - metformin 500 mg daily discontinued 02/25/2022 due controlled BS -Trulicity discontinued 07/2022 due to controlled BS -Blood pressure is at goal of <140/90 per JNC 8 guidelines. -Importance of low-fat, low cholesterol, ADA diet discussed. Importance of moderate physical activity discussed. -Restart Trulicity once a week 01/23/23. -Start Metformin ER 500mg daily on 07/10/2023. -A1c improved to 6.6% today, 05/11/24 from previous 7.4% 01/23/23. -Continue Trulicity once a week, that was started on 01/23/23. -Encouraged Pt to be compliant with Trulicity. -Continue Metformin ER 500mg daily on 07/10/2023. -DM foot exam: completed 05/11/24 Statin Therapy: Start Atorvastatin 20 mg Assessment & Plan (08/27/2023 1:53 PM EDT): Not controlled. Diagnosed 01/2021 based on non-fasting glucose of 404 and A1c 10.1% A1c quickly Normalized to 5.9 07/2021 with insulin, metformin and Trulicity -anti islet cell Ab and AGATHA 65 antibodies negative - Lantus Solstar discontinued 10/10/2021 due to controlled BS - metformin 500 mg daily discontinued 02/25/2022 due controlled BS -Trulicity discontinued 07/2022 due to controlled BS -Blood pressure is at goal of <140/90 per JNC 8 guidelines. -Importance of low-fat, low cholesterol, ADA diet discussed. Importance of moderate physical activity discussed. -A1c 7.4% 01/23/23. -Restart Trulicity once a week 01/23/23. -Will Encourage Pt to be compliant with Trulicity. -Start Metformin ER 500mg daily on 07/10/2023. Assessment & Plan (08/20/2023 9:05 AM EDT): Not controlled. Diagnosed 01/2021 based on non-fasting glucose of 404 and A1c 10.1% A1c quickly Normalized to 5.9 07/2021 with insulin, metformin and Trulicity -anti islet cell Ab and AGATHA 65 antibodies negative - Lantus Solstar discontinued 10/10/2021 due to controlled BS - metformin 500 mg daily discontinued 02/25/2022 due controlled BS -Trulicity discontinued 07/2022 due to controlled BS -Blood pressure is at goal of <140/90 per JNC 8 guidelines. -Importance of low-fat, low cholesterol, ADA diet discussed. Importance of moderate physical activity discussed. -A1c 7.4% 01/23/23. -Restart Trulicity once a week 01/23/23. -Will Encourage Pt to be compliant with Trulicity. -Start Metformin ER 500mg daily on 07/10/2023. Assessment & Plan (07/10/2023 3:25 PM EDT): Not controlled. Diagnosed 01/2021 based on non-fasting glucose of 404 and A1c 10.1% A1c quickly Normalized to 5.9 07/2021 with insulin, metformin and Trulicity -anti islet cell Ab and AGATHA 65 antibodies negative - Lantus Solstar discontinued 10/10/2021 due to controlled BS - metformin 500 mg daily discontinued 02/25/2022 due controlled BS -Trulicity discontinued 07/2022 due to controlled BS -Blood pressure is at goal of <140/90 per JNC 8 guidelines. -Importance of low-fat, low cholesterol, ADA diet discussed. Importance of moderate physical activity discussed. -A1c 7.4% 01/23/23. -Restart Trulicity once a week 01/23/23. -Will Encourage Pt to be compliant with Trulicity. -Start Metformin ER 500mg daily on 07/10/2023. Assessment & Plan (01/23/2023 3:14 PM EDT): Not controlled. Diagnosed 01/2021 based on non-fasting glucose of 404 and A1c 10.1% A1c quickly Normalized to 5.9 07/2021 with insulin, metformin and Trulicity -anti islet cell Ab and AGATHA 65 antibodies negative - Lantus Solstar discontinued 10/10/2021 due to controlled BS - metformin 500 mg daily discontinued 02/25/2022 due controlled BS -Trulicity discontinued 07/2022 due to controlled BS -Blood pressure is at goal of <140/90 per JNC 8 guidelines. -Importance of low-fat, low cholesterol, ADA diet discussed. Importance of moderate physical activity discussed. -A1c 7.4% 01/23/23. -Restart Trulicity once a week 01/23/23. Assessment & Plan (12/05/2022 3:40 PM EST): -Well controlled on diet alone -Trulicity discontinued with pharmacy -A1c 6.7 12/05/2022 Valgus leg deformity, acquired 11/19/2022 Primary ovarian failure 11/14/2022 Overview (09/15/2024): Pt presented to care as adult with absence of signs of puberty and amenorrhea. Pt previously followed by endocrinology at [facility] with primary amenorrhea. Chromosomal analysis unremarkable. Started having menses with estrogen and progesterone supplementation. -karyotype 46XX. 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 -Patient menstruated for the first time in January 2019 after starting estrogen and progesterone. -US on 07/13 showed nonvisualized ovaries and premenarchal, hypoplastic appearance of the uterus. -Estradiol increased to 2mg BID 10/11/2021.Now having menses and improvement in vaginal dryness. -Progesterone 200mcg 12 days q month restarted 06/07/2021fter nextplanon removal - exam normal on 06/2019. No other hallmarks for Jacobson syndrome. -Pt is on correct hormone replacement for overall health and this should be continued. She saw Bethanie Jackson with Dr. Marycarmen Long MD on 07/2021. It was discussed that is very unlikely, although not impossible that she would conceive spontaneously. She was referred for IVF to [facility] [place] [phone] and they stated they do not take Celtro. They recommend pt call [facility] where. If IVF did not work, she could be sent to [facility]. -will check US to evaluate if ovaries are present as they were not seen on previous US. She understands it is very unlikely she will get and will be unable to get with her own egg if she does not have ovaries. It is possible she has ovarian agenesis She may have Perrrault Syndrome given ovarian abnormalities and Deafness although she has no neurological problems. -Ultrasound done 07/09/2022 showed ovaries not identified. Pt hopes to in the future seek IVF with a donor egg. Assessment & Plan (05/10/2024 12:07 PM EDT): Pt previously followed by endocrinology at [facility] with primary amenorrhea. Chromosomal analysis unremarkable. Started having menses with estrogen and progesterone supplementation. -karyotype 46XX. 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 -Patient menstruated for the first time in January 2019 after starting estrogen and progesterone. -US on 07/13 showed nonvisualized ovaries and premenarchal, hypoplastic appearance of the uterus. - Estradiol increased to 2mg BID 10/11/2021.Now having menses and improvement in vaginal dryness. -Progesterone 200mcg 12 days q month restarted 06/07/2021fter nextplanon removal - exam normal on 06/2019. No other hallmarks for Jacobson syndrome. -Pt is on correct hormone replacement for overall health and this should be continued. She saw Bethanie Jackson with Dr. Marycarmen Long MD on 07/2021. It was discussed that is very unlikely, although not impossible that she would conceive spontaneously. She was referred for IVF to [facility] [phone] and they stated they do not take Celtro. They recommend pt call [facility] for [facility] where. If IVF did not work, she could be sent to [facility]. -will check US to evaluate if ovaries are present as they were not seen on previous US. She understands it is very unlikely she will get and will be unable to get with her own egg if she does not have ovaries. It is possible she has ovarian agenesis She may have Perrrault Syndrome given ovarian abnormalities and Deafness although she has no neurological problems. -Ultrasound done 07/09/2022 showed ovaries not identified. Pt hopes to in the future seek IVF with a donor egg. Assessment & Plan (08/27/2023 1:54 PM EDT): Pt previously followed by endocrinology at [facility] with primary amenorrhea. Chromosomal analysis unremarkable. Started having menses with estrogen and progesterone supplementation. -karyotype 46XX. 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 -Patient menstruated for the first time in January 2019 after starting estrogen and progesterone. -US on 07/13 showed nonvisualized ovaries and premenarchal, hypoplastic appearance of the uterus. - Estradiol increased to 2mg BID 10/11/2021.Now having menses and improvement in vaginal dryness. -Progesterone 200mcg 12 days q month restarted 1after nextplanon removal - exam normal on 06/2019. No other hallmarks for Jacobson syndrome. -Pt is on correct hormone replacement for overall health and this should be continued. She saw huong Jackson with Dr. Marycarmen Long MD on 07/2021. It was discussed that is very unlikely, although not impossible that she would conceive spontaneously. She was referred for IVF to [facility] [phone] and they stated they do not take Celtro. They recommend pt call [facility] for [facility] where. If IVF did not work, she could be sent to [facility]. -will check US to evaluate if ovaries are present as they were not seen on previous US. She understands it is very unlikely she will get and will be unable to get with her own egg if she does not have ovaries. It is possible she has ovarian agenesis She may have Perrrault Syndrome given ovarian abnormalities and Deafness although she has no neurological problems. -Ultrasound done 07/09/2022 showed ovaries not identified. Pt hopes to in the future seek IVF with a donor egg. Assessment & Plan (08/20/2023 9:06 AM EDT): Pt previously followed by endocrinology at [facility] with primary amenorrhea. Chromosomal analysis unremarkable. Started having menses with estrogen and progesterone supplementation. -karyotype 46XX. 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 -Patient menstruated for the first time in January 2019 after starting estrogen and progesterone. -US on 07/13 showed nonvisualized ovaries and premenarchal, hypoplastic appearance of the uterus. - Estradiol increased to 2mg BID 10/11/2021.Now having menses and improvement in vaginal dryness. -Progesterone 200mcg 12 days q month restarted 06/07/2021fter nextplanon removal - exam normal on 06/2019. No other hallmarks for Jacobson syndrome. -Pt is on correct hormone replacement for overall health and this should be continued. She saw [facility] with Dr. Marycarmen Long MD on 07/2021. It was discussed that is very unlikely, although not impossible that she would conceive spontaneously. She was referred for IVF to [facility] [place] [phone] and they stated they do not take Celtro. They recommend pt call [facility] where. If IVF did not work, she could be sent to [facility]. -will check US to evaluate if ovaries are present as they were not seen on previous US. She understands it is very unlikely she will get and will be unable to get with her own egg if she does not have ovaries. It is possible she has ovarian agenesis She may have Perrrault Syndrome given ovarian abnormalities and Deafness although she has no neurological problems. -Ultrasound done 07/09/2022 showed ovaries not identified. Pt hopes to in the future seek IVF with a donor egg. Bilateral deafness 11/14/2022 Overview (05/10/2024): -Patient needs supervisor dumping for all visits. Please make note of this in any referrals. Assessment & Plan (04/12/2025 5:43 PM EDT): Assessment & Plan (05/11/2024 9:42 AM EDT): -Patient needs supervisor dumping for all visits. Please make note of this in any referrals. Resolved Problems Problem Noted Date Diagnosed Date Resolved Date Generalized abdominal pain 09/07/2024 0 06/27/2025 Overview (04/08/2025): Generalized, right lateral mid abd pain. No RUQ pain, no pelvic pain and no evidence of SBO or acute abdomen. Unknown etiology, differential includes renal calculi, UTI, IBS, H. Pylori, and others. POCT urine negative. Normal KUB 08/20/23. -ordered breath . Pylori test 09/07/24 negative Renal US 09/16/24 IMPRESSION: Normal exam -prescribed Omeprazole to trial for reflux 09/07/24 - UA normal 11/15/24 -increased Omeprazole to 20 mg BID 12/06/24 -seen by Dr. Moreno GI 03/29/25 Discontinue omeprazole. Start pantoprazole, however patient will take famotidine for 2 weeks prior to H pylori testing. Hold famotidine 24 hours and NPO for 1 hour priorto testing. Will check transglutaminase, vitamin B12, folate, vitamin-D level and lipase. Patient will avoid dietary triggers and late night snacking. Staying upright for minimum 3 hours after meals discussed with patient. Patient will also be sent for upper GI with barium swallow. Follow-up in 2 months, sooner on as needed basis. Patient is agreeable to current plan of care and verbalizes understanding of instructions. She was given the opportunity to ask questions and all questions answered. Assessment & Plan (04/12/2025 5:43 PM EDT): Assessment & Plan (12/09/2024 10:30 AM EST): Generalized, right lateral mid abd pain. No RUQ pain, no pelvic pain and no evidence of SBO or acute abdomen. Unknown etiology, differential includes renal calculi, UTI, IBS, H. Pylori, and others. POCT urine negative. Normal KUB 08/20/23. -ordered breath . Pylori test 09/07/24 negative Renal US 09/16/24 IMPRESSION: Normal exam -prescribed Omeprazole to trial for reflux 09/07/24 - UA normal 11/15/24 -increased Omeprazole to 20 mg BID 12/06/24 Assessment & Plan (09/27/2024 1:35 PM EST): Generalized, right lateral mid abd pain. No RUQ pain, no pelvic pain and no evidence of SBO or acute abdomen. Unknown etiology, differential includes renal calculi, UTI, IBS, H. Pylori, and others. POCT urine negative. Normal KUB 08/20/23. -ordered breath . Pylori test 09/07/24 ntegaive -ordered UA with culture 09/07/24 -ordered UA kidneys 09/07/24 -prescribed Omeprazole to trial for reflux 09/07/24 -ER precautions discussed. -restart omeprazole daily 09/27/24 and she will let me know in 2-3 weeks how she is doing Assessment & Plan (09/07/2024 10:11 AM EST): Generalized, right lateral mid abd pain. No RUQ pain, no pelvic pain and no evidence of SBO or acute abdomen. Unknown etiology, differential includes renal calculi, UTI, IBS, H. Pylori, and others. POCT urine negative. Normal KUB 08/20/23. -ordered breath . Pylori test 09/07/24 -ordered UA with culture 09/07/24 -ordered UA kidneys 09/07/24 -prescribed Omeprazole to trial for reflux 09/07/24 -ER precautions discussed. Gastroesophageal reflux disease 05/11/2024 04/08/2025 Overview (09/27/2024): -having episodes of epigastric burning as well as associated diarrhea. Assessment & Plan (05/21/2024 3:31 PM EDT): -having episodes of epigastric burning as well as associated diarrhea. -ordered H. Pylori test 05/11/24, she states they did not breast puller her a cup. Advised to ask at lab and call me if any issues. Assessment & Plan (05/11/2024 9:51 AM EDT): -having episodes of epigastric burning as well as associated diarrhea. -ordered H. Pylori test 05/11/24 Vaginal odor 05/11/2024 09/15/2024 Overview (05/21/2024): -ordered BV testing 05/11/24 Metronidazole rx 05/21/24 Assessment & Plan (05/21/2024 3:31 PM EDT): -ordered BV testing 05/11/24 Metronidazole rx 05/21/24 Assessment & Plan (05/11/2024 10:00 AM EDT): -ordered BV testing 05/11/24 Physical exam 05/10/2024 05/21/2024 Bronchitis 12/27/2023 05/10/2024 Assessment & Plan (12/27/2023 8:52 PM EST): preg test in urine-neg today Pt with ongoing productive cough for the past 1 to 2 weeks Sound blood in cough is from reported epistaxis ,denies night sweats ,weight loss ,nor fever to be concern in Tb -guiafenesin,amoxicillin x 7 days for bronchitis -ocean nasal spray -CXR -t-spot to have for baseline -alarm signsand symptoms explained to pt -symptoms not highly concerning for Tb but if any concerning CXR findings will need to consdier AFB in sputum x3 Lower abdominal pain 08/20/2023 023 Assessment & Plan (08/27/2023 2:04 PM EDT): Dx with UTI, treated. Symptoms resolved. Assessment & Plan (08/20/2023 9:16 AM EDT): - No evidence of acute abdomen. Differentials includes gastroenteritis, kidney stone, UTI, vs other. 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 - Have oredered labs and KUV -ER precausions discussed -Will let doctor know how she is feeling tomorrow. Palpitations 04/09/2023 05/10/2024 Assessment & Plan (04/09/2023 6:55 PM EDT): EKG NSR with possible LVH 82 BPM 04/09/2023 -faint cardiac murmur at LUSB -echo ordered -consider Holter monitor -follow up with me after echo Abscess 02/11/2023 08/27/2023 Overview (02/11/2023): Prescribed doxycycline BID for 10 days. Call if symtposm worsen or do not improve. Assessment & Plan (08/27/2023 1:54 PM EDT): Prescribed doxycycline BID for 10 days. Call if symtposm worsen or do not improve. Assessment & Plan (02/11/2023 7:04 PM EDT): Prescribed doxycycline BID for 10 days. Call if symtposm worsen or do not improve. Vaginal candidiasis 01/23/2023 05/10/20 Assessment & Plan (07/10/2023 3:23 PM EDT): Clotrimazole cream in the vagina for 7 nights. Assessment & Plan (01/23/2023 3:13 PM EDT): -Wet prep with JORDY significant for hyphae and budding yeast. -Treat with fluconazole and clotrimazole cream. -Candidiasis prevention discussed. Generalized headache 11/19/2022 023 Anemia 11/19/2022 05/10/2024 Posttraumatic stress disorder 11/19/2022 05/10/2024 Encounters Date Type Department Care Team Description 06/27/2025 9:15 AM EDT Telemedicine [facility] [address] [place] [phone] Agnes Christopher MD Type 2 diabetes mellitus without complication, without long-term current use of insulin (CMS/HCC) (Primary Dx); Chronic gastritis without bleeding, unspecified gastritis type 06/27/2025 Telephone [facility] [address] [place] [phone] Agnes Christopher MD 06/27/2025 Travel 06/07/2025 Refill [facility] [address] [place] [phone] Agnes Christopher MD Vitamin D deficiency 06/06/2025 10:45 AM EDT Telemedicine [facility] [address] [place] [phone] Agnes Christopher MD Nipple anomaly (Primary Dx); Type 2 diabetes mellitus without complication, without long-term current use of insulin (CMS/HCC) 06/06/2025 Travel 06/02/2025 Orders Only [facility] [address] [place] [address] [phone] Agnes Christopher MD Type 2 diabetes mellitus without complication, without long-term current use of insulin (CMS/HCC) (Primary Dx) 06/01/2025 Refill [facility] [address] [place] [phone] Agnes Christopher MD Primary ovarian failure 06/01/2025 Refill [facility] [address] [place] [address] 22968 Agnes Christopher MD Type 2 diabetes mellitus without complication, without long-term current use of insulin (CMS/HCC) 05/25/2025 Refill [facility] [address] [place] [address] [phone] Agnes Christopher MD Constipation, unspecified constipation type 05/23/2025 Refill [facility] [address] [place] [address] 17693 Agnes Christopher MD Vitamin D deficiency 05/18/2025 11:15 AM EDT Telemedicine [facility] [address] [place] [phone] Agnes Christopher MD Type 2 diabetes mellitus without complication, without long-term current use of insulin (CMS/HCC) (Primary Dx); Bilateral deafness 05/18/2025 Travel 05/13/2025 Refill [facility] [address] [place] [address] Agnes Christopher MD Type 2 diabetes mellitus without complication, without long-term current use of insulin ([facility]) 05/13/2025 Refill [facility] [address] [place] [address] [phone] Agnes Christopher MD Type 2 diabetes mellitus without complication, without long-term current use of insulin ([facility]) 05/13/2025 Refill [facility] [address] [place] [phone] Agnes Christopher MD Type 2 diabetes mellitus without complication, unspecified whether emt intermediate insulin use ([facility]) 05/13/[address] [address] Agnes Christopher MD Prior Authorization 05/13/[address] [address] Agnes Christopher MD Type 2 diabetes mellitus without complication, unspecified whether emt intermediate insulin use ([facility]) 04/26/2025 Orders Only GENERIC EXTERNAL DATA DEPARTMENT Provider, Generic External Data 04/20/2025 9:15 AM EDT Telemedicine [address] [address] Agnes Christopher MD Type 2 diabetes mellitus without complication, without long-term current use of insulin ([facility]) (Primary Dx); Chronic gastritis without bleeding, unspecified gastritis type 04/20/2025 Travel 04/20/[address] [address] Agnes Christopher MD 04/12/2025 Orders Only GENERIC EXTERNAL DATA DEPARTMENT Provider, Generic External Data 04/12/2025 Telephone [facility] [address] [place] [phone] Agnes Christopher MD 04/08/2025 9:30 AM EDT Office Visit [address] [address] Agnes Christopher MD Type 2 diabetes mellitus without complication, without long-term current use of insulin ([facility]) (Primary Dx); Generalized abdominal pain; Overweight with body mass index (BMI) of 28 to 28.9 in adult; Dietary counseling; Exercise counseling; Bilateral deafness; Encounter for immunization; Chronic gastritis without bleeding, unspecified gastritis type; Bacterial vaginosis 04/08/2025 Travel 04/07/2025 Telephone [facility] [address] [place], [place] [phone] Agnes Christopher MD chart prep 04/06/2025 Refill [facility] [address] [place], [place] [phone] Heidi Villalobos MD Primary ovarian failure from Last 3 Months Immunizations Immunization Administration Dates Next Due Hep B, adult 04/08/2025,11/10/2024,05/11/2024 Influenza injectable quadriv alent preservative free 07/17/2022,07/23/2021,08/04/2020,2019,08/27/2019 Influenza, seasonal, injecta ble, preservative free 11/10/2024 MMR 07/17/2022 Pfizer Covid-19 Vaccine 12+ 11/10/2024,0 11/26/2021,03/08/2021,2020 Pneumococcal Conjugate PCV 20 05/11/2024 Tdap 08/27/2019 Varicella 12/10/2024,07/18/2022 Social History Tobacco Use Types Packs/Day Years Used Date Smoking Tobacco: Never Passive Smoke Exposure: Never Smokeless Tobacco: Never Tobacco Cessation:Counseling Given: Not Answered Alcohol Use Standard Drinks/Week Comments Never 0 [...] Q2 Not on file 04/08/2025 Comments Unknown Intention Date Recorded No desire to become (finding) 0 04/20/2025 Sex and Gender Information Value Date Recorded Sex Assigned at Female 09/02/2022 10:35 AM EDT Legal Sex Female 10:35 AM EDT Gender Identity Female 09/02/2022 10:35 AM EDT Sexual Orientation Choose not to disclose 2021 10:35 AM EDT Occupation Industry Job Start Date Job End Date [employer] Not on file Not on fi le Not on file Last Filed Vital Signs Vital Sign Reading Time Taken Comments Blood Pressure 124/76 04/08/2025 9:34 AM EDT Pulse 78 04/08/2025 9:34 AM EDT Temperature 36.4 C (97.5 F) 04/08/2025 9:34 AM EDT Respiratory Rate 20 04/08/2025 9:34 AM EDT Oxygen Saturation 99% 04/08/2025 9:34 AM EDT Inhaled Oxygen Concentration - - Weight 83.7 kg (184 lb 9.6 oz) 04/08/2025 9:34 A M EDT Height 170.2 cm (5' 7 ) 04/08/2025 9:34 AM EDT Body Mass Index 28.91 04/08/2025 9:34 AM EDT Plan of Treatment Upcoming Encounters Date Type Department Care Team (Late st Contact Info) Description 08/17/2025 10:30 AM EDT Office Visit [facility] [address] [place] [address] Agnes Christopher MD [address] [place] [address] Health Maintenance Due Date Last Done Comments HPV Vaccines (1 - 3-dose series) 2001 IPV Vaccines (2 of 3 - Adult catch-up series) 01/13/2025 12/16/2024 Diabetes: Foot Exam 05/11/2025 05/11/2024, 05/11/2024, 05/11/2024 Influenza Vaccine (#1) 2025 , 07/17/2022, 07/23/2021, Additional history exists Diabetes: Hemoglobin A1C 07/09/2025 025, 11/10/2024, 09/07/2024, Additional history exists Diabetes: Urine Protein Screening 09/07/2025 09/07/2024, 02/20/2022, 01/22/2021 Lipid Panel 09/07/2025 09/07/2024, 07/0 07/2024, 12/05/2022, Additional history exists Alcohol/Substance Use Screening 04/08/2026 04/08/2025 SDOH Screening 04/08/2026 04/08/2025 Family Planning (PISQ) 04/22/2026 04/22/2025 Disability Screening 05/18/2026 05/18/2025 Tobacco Screening 05/18/2026 05/18/2025 Depression Screening 06/27/2026 06/27/2025, 09/07/20 24 Eye Exam 10/19/2026 10/19/2024, 10/03, 10/19/2024, Additional history exists DTaP/Tdap/Td Vaccines (2 - Td or Tdap) 09/24/2029 08/27/2019 Postponed from 08/27/2029 (Other Medical Reasons) Cervical Cancer Screening 11/10/2029 HPV/Cotest 11/10/2029 11/10/2024, 06/09/2019 Pap Smear 11/10/2029 11/10/2024, 06/09/2019 Zoster Vaccines (1 of 2) 01/11/2036 RSV Patients and Patients Aged 60 years or older (1 - 1-dose 75+ series) 2061 HIV Screening Completed 12/05/2022 Hepatitis C Screening Completed 12/05/2022 Pneumococcal Vaccine: Pediatrics (0 to 5 Years) and At-Risk Patients (6 to 49) Years Completed 05/11/2024 COVID-19 Vaccine Completed 11/10/2024, , 03/08/2021, Additional history exists Hepatitis B Vaccines Completed 04/08/2025, 11/10/2024, 05/11/2024 HIB Vaccines Aged Out No longer eligi ble based on patient's age to complete this topic Hepatitis A Vaccines Aged Out No long er eligible based on patient's age to complete this topic Meningococcal B Vaccine Aged Out No l onger eligible based on patient's age to complete this topic Meningococcal Vaccine Aged Out No david dory eligible based on patient's age to complete this topic RSV under 20 months Aged Out No longe r eligible based on patient's age to complete this topic Rotavirus Vaccines Aged Out No longer eligible based on patient's age to complete this topic Procedures Procedure Name Priority Date/Time Associated Diagnosis Comments VITAMIN D 25-OH (D2 AND D3) Routine 04/26/2025 8:28 AM EDT TISSUE TRANSGLUTAMINASE AB, IGA Routine 04/26/2025 8:28 AM EDT VITAMIN B12/FOLATE, SERUM PANEL Routine 04/26/2025 8:28 AM EDT LIPASE Routine 04/26/2025 8:28 AM EDT HELICOBACTER PYLORI, UREA BREATH TEST Routine 04/12/2025 10:55 AM EDT POCT GLUCOSE Routine 04/08/2025 10:11 AM EDT Type 2 diabetes mellitus without complication, without long-term current use of insulin ([facility]) POCT GLYCOSYLATED HEMOGLOBIN (HGB A1C) Routine 04/08/2025 10:09 AM EDT Type 2 diabetes mellitus without complication, without long-term current use of insulin (CMS/HCC) HPV MRNA E6/E7 REFLEX TO HPV 16, 18/45 Routine 11/10/2024 12:00 AM EST PAP SMEAR Routine 11/10/2024 12:00 AM EST Cervical cancer screening ALBUMIN, RANDOM URINE W/CREATININE Routine 09/07/2024 10:18 AM EST Type 2 diabetes mellitus without complication, unspecified whether emt intermediate insulin use (CMS/HCC) LIPID PANEL, STANDARD Routine 09/07/2024 10:18 AM EST Type 2 diabetes mellitus without complication, without long-term current use of insulin (CMS/HCC) HEPATITIS C AB W/REFL TO HCV RNA, QN, PCR Routine 12/05/2022 3:47 PM EST Type 2 diabetes mellitus without complication, without long-term current use of insulin (CMS/HCC) Primary ovarian failure HIV 1/2 ANTIGEN/ANTIBODY, FOURTH GENERATION W/RFL Routine 12/05/2022 3:47 PM EST Type 2 diabetes mellitus without complication, without long-term current use of insulin (CMS/HCC) Primary ovarian failure from Last 3 Months or Most Recently Relevant to Health Maintenance Results * VITAMIN D 25-OH (D2 AND D3) (04/26/2025 8:28 AM EDT) Vitamin D, 25-OH, D2 <4 ng/mL [facility] Comment:This test was develo ped and its analytical performancecharacteristics have been determined by [facility] [place], [place]. It hasnot been cleared or approved by the U.S. Food and DrugAdministration. This assay has been validated pursuantto the CLIA regulations and is used for clinicalpurposes.THIS TEST WAS PERFORMED AT:[id number] [place] [id number] W. MASON,MD,PHD Vitamin D, 25-OH, D3 49 ng/mL [facility] Comment:This test was develo ped and its analytical performancecharacteristics have been determined by [employer] [place], [place]. It hasnot been cleared or approved by the U.S. Food and DrugAdministration. This assay has been validated pursuantto the CLIA regulations and is used for clinicalpurposes. Vitamin D, 25-OH, Total 49 30 - 100 ng/mL [facility] Comment:Vitamin D, 25-Hydrox y reports concentrations of twocommon forms, 25-OHD2 and 25-OHD3. 25-OHD3 indicatesboth endogenous production and supplementation.25-OHD2 is an indicator of exogenous sources such asdiet or supplementation. Therapy is based onmeasurement of Total 25-OHD, with levels <20 ng/mLindicative of Vitamin D deficiency, while levelsbetween 20 ng/mL and 30 ng/mL suggest insufficiency.Optimal levels are > or = 30 ng/mL.For additional information, please refer tohttp://education.[employer]/faq/TBM885(This link is being provided for informational/educational purposes only.) 04/26/2025 8:28 AM EDT 04/26/2025 11:19 AM EDT us Generic External Data Provider LAB BLOOD ORDERAB LES Final Result [facility] [address] [place] [phone] * Vitamin B12 (Cobalamin) and Folate Panel, Serum (04/26/2025 8:28 AM EDT) Vitamin B12 595 200 - 900 pg/mL [facility] Comment:NORMAL 200-900 PG/ML INDETERMINATE 160-199 PG/ML DEFICIENT < 160 PG/ML Folate 10.8 > or = 4.0 ng/mL [facility] Comment:Reference Values:> o r = 4.0 ng/mL< 4.0 ng/mL suggests folate deficiency Methotrexate, aminopterin and folinic acid(leucovorin) are chemotherapeutic agents whose molecularstructures are similar to folate; therefore, the Architectfolate assay cannot be used for patients using these drugs. 04/26/2025 8:28 AM EDT 04/26/2025 11:19 AM EDT Generic External Data Provider LAB BLOOD ORDERAB LES Final Result Performing Organization Address [facility] Co de Phone Number [facility] [address] [place] [phone] * Tissue Transglutaminase Antibody, IgA (04/26/2025 8:28 AM EDT) Pathologist [facility] Transglutaminase IgA <1.0 U/mL [facility] Comment:Value Interpretation ----- <15.0 Antibody not detected> or = 15.0 Antibody detectedTHIS TEST WAS PERFORMED AT:[facility] [place] [phone] URENA MD 04/26/2025 8:28 AM EDT 04/26/2025 11:19 AM EDT Generic External Data Provider LAB BLOOD ORDERAB LES Final Result Performing Organization Address [facility] Phone Number [facility] [address] [place] [phone] * Lipase (04/26/2025 8:28 AM EDT) [facility] Lipase 31 8 - 78 U/L [facility] 04/26/2025 8:28 AM EDT 04/26/2025 11:19 AM EDT Generic External Data Provider LAB BLOOD ORDERAB LES Final Result Performing Organization Address [facility] Co de Phone Number [facility] [address] [place] [phone] * Helicobacter pylori, Urea Breath Test (04/12/2025 10:55 AM EDT) H. pylori Breath Test Negative Negative [facility] Comment:Antimicrobials, prot on pump inhibitors and bismuthpreparations are known to suppress H. pylori. Ingestingthese medications within two weeks prior to performing thebreath test may produce negative test results. A positiveresult is still clinically valid. 04/12/2025 10:5 5 AM EDT 04/12/2025 4:36 PM EDT Generic External Data Provider LAB BODY FLUIDS A ND STOOLS ORDERABLES Final Result [facility] [address] [place] [phone] * POCT glucose manually resulted (04/08/2025 10:11 AM EDT) Glucose Blood, POC 121 60 - 200 mg/dL QC Media Lot # [id number] Lot# Expiration Date Blood Capillary blood specimen / Unknown 04/08/2025 10:11 AM EDT Agnes Christopher MD POINT OF CARE TEST ENTER/E DIT ORDERABLES Final Result * (ABNORMAL) POCT glycosylated hemoglobin (Hgb A1c) (04/08/2025 10:09 AM EDT) Hemoglobin A1C 6.6(A) 4.0 - 6.0 % QC Media Lot # [id number] Lot# Expiration Date 199 Blood Capillary blood specimen / Unknown 04/08/2025 10:09 AM EDT Agnes Christopher MD POINT OF CARE TEST ENTER/E DIT ORDERABLES Final Result * HPV mRNA E6/E7 w/Reflex to HPV Genotypes 16, 18/45 (11/10/2024 12:00 AM EST) Historical Provider LAB CYTOLOGY ORDERABLES F inal Result * Pap Smear (11/10/2024 12:00 AM EST) Swab Cervix uteri structure / Unknown 11/10/2024 11/11/2024 7:40 AM EST Narrative [facility] - 11/16/2024 12:56 PM EST ----- ------- Name: Briana Garcia Age/Sex: 39/F : 1985 Unit#: [id number] Attend Dr: Agnes Christopher MD Re11/10/24 Status: [facility]ch: ----- ------- SPEC : [id number] RECD: 11/11/24 STATUS: JOSETTE YO NUM: [id number] FARAZ: 11/10/24-0000 [facility] DR: Agnes Christopher MD ENTERED: 11/11/24 SP TYPE: Pap Smr [facility] DR: ORDERED: Pap Smear Interpretation Satisfactory for evaluation. Negative for intraepithelial lesion or malignancy. HPV High Risk: Negative HPV Genotyping 16: Negative HPV Genotyping 18: Negative Clinical Information LMP: Previous PAP test: 5 years ago, negative Other surgery: Other history: Material Received ThinPrep ----- ------- Signed (signature on file) CARMELINA Dowd ([facility]) 11/16/24 1256 ----- ------- END OF REPORT Agnes Christopher MD LAB CYTOLOGY ORDERABLES Fi nal Result Performing Organization Address [facility] de Phone Number [facility] [address] [place] [address] [phone] * Albumin, Random Urine W/Creatinine (09/07/2024 10:18 AM EST) Creatinine, Urine 151.12 mg/dL [facility] Microalbumin Urine 8.0 mg/L [facility] Microalbum Creatinine Ratio Ur 5.2 <30 ug/mg cr [facility] Comment:Albumin/Creatinine R atio Reference Ranges: Normal: < 30 ug/mg creatinine Microalbuminuria: 30 - 300 ug/mg creatinineClinical Albuminuria: > 300 ug/mg creatinine Urine 09/07/2024 10:1 8 AM EST 09/07/2024 11:11 AM EST Agnes Christopher MD LAB URINE ORDERABLES Final Result Performing Organization Address [facility] Co de Phone Number [facility] [address] [place] [address] [phone] * Lipid Panel, Standard (09/07/2024 10:18 AM EST) Triglycerides 84 <150 mg/dL [facility] Comment:Desirable Triglyceri de: less than 150 mg/dLBorderline High Triglyceride 150-199 mg/dLHigh Triglyceride: 200-499 mg/dLVery High Triglyceride: greater than or equal to 5OO mg/dL Cholesterol 136 <200 mg/dL [facility] Comment:Desirable Cholestero l: less than 200 mg/dLBorderline High Cholesterol: 200-239 mg/dLHigh Cholesterol: greater than 239 mg/dL LDL Cholesterol Calculated 67 <100 mg/dL [facility] Comment:Desirable LDL: less than 100 mg/dLNear Optimal/Above Optimal LDL: 110- 129 mg/dLBorderline High LDL: 130-159 mg/dLHigh LDL: 160-189 mg/dLVery High LDL: greater than or equal to 190 mg/dL HDL Cholesterol 53 >40 mg/dL [facility] Comment:Desirable HDL: great er than 40 mg/dL Note: This HDL assay may give artificially low results in patients with liver disease. Blood Venous blood specimen / Unknown 09/07/2024 10:18 AM EST 09/07/2024 11:22 AM EST us Agnes Christopher MD LAB BLOOD ORDERABLES Final Result [facility] [address] [place] [phone] * Hepatitis C Antibody with Reflex to HCV, RNA, Quantitative, Real-Time PCR (12/05/2022 3:47 PM EST) Hepatitis C Antibody NON-REACT ANNIE NON-REACT ANNIE [facility] [place] [facility] Index 0.02 <1.00 [facility] [place] [facility] Comment: HCV antibody was non-reactive. There is no laboratory evidence of HCV infection. In most cases, no further action is required. However, if recent HCV exposure is suspected, a test for HCV RNA (test code 89662) is suggested. For additional information please refer to http://education.[employer]/faq/CCN04p1 (This link is being provided for informational/ educational purposes only.) Blood Venous blood specimen / Unknown 12/05/2022 3:47 PM EST 12/05/2022 3:48 PM EST Narrative [facility] - 12/09/2022 2:40 PM EST FASTING:NO FASTING: NO Agnes Christopher MD LAB BLOOD ORDERABLES Final Result [facility] [address] [place] [address], [place] [address] [facility] [place] [facility] [address] [facility], ([address]) [place] [address] * HIV-1/2 Antigen and Antibodies, Fourth Generation, with Reflexes (12/05/2022 3:47 PM EST) [facility] HIV Antigen/Antibody, 4th Generation NON-REAC TIVE NON-REAC TIVE [facility] [place] [employer] Comment: HIV-1 antigen and HIV-1/HIV-2 antibodies were not detected. There is no laboratory evidence of HIV infection. PLEASE NOTE: This information has been disclosed to you from records whose confidentiality may be protected by state law. If your state requires such protection, then the state law prohibits you from making any further disclosure of the information without the specific written consent of the person to whom it pertains, or as otherwise permitted by law. A general authorization for the release of medical or other information is NOT sufficient for this purpose. For additional information please refer to http://education.[employer]/faq/EJI412 (This link is being provided for informational/ educational purposes only.) The performance of this assay has not been clinically validated in patients less than 2 years old. Blood Venous blood specimen / Unknown 12/05/2022 3:47 PM EST 12/05/2022 3:48 PM EST Narrative [facility] - 12/09/2022 2:40 PM EST FASTING:NO FASTING: NO Agnes Christopher MD LAB BLOOD ORDERABLES Final Result [address], [place] [address] [facility] [place] [facility] [address] [facility], ([address]) [place] [address] from Last 3 Months or Most Recently Relevant to Health Maintenance Insurance [facility] 3 Advance Directives Documents on File Type Date Recorded Patient Piece Work Inspector Expl anation Advance Directives and Living Will 05/12/2024 2:59 PM Health Care Proxy Care Teams Acquisition Specialist Relationship Specialty Start Date End Date Candi, MD Agnes [address] [place] [address] [phone] PCP - General Family Medicine 06/09/19 Elena Norris OD [address] [place] [address] [phone] Optometry 11/10/24 Jazmine Moreno [address] 3rd [place] [address] Gastroenterology 04/01/25
--- OUTSIDE RECORDS SUMMARY | 2025-07-05 16:12 | XMS_ITS | Encounter Summary ---
Author Organization [employer] Address [address] [place] [address] 7 [place] [address] Care Team Providers Care Chief Technical Officer Name Role Phone Agnes Christopher MD Primary Care Provider [phone] MyrnaElena OD Unavailable [phone] TiffanieJazmine guerrier Unavailable Reason for Visit * Reason Onset Date Comments Med Refill 05/13/2025 Encounter Details Date Type Department Care Team (Late st Contact Info) Description 05/13/2025 Refill [facility] [address] [place], [place] [phone] Agnes Christopher MD [address] [place], [place] [phone] Type 2 diabetes mellitus without complication, unspecified whether treating plant pumper insulin use ([facility]) Social History Tobacco Use Types Packs/Day Years [...] the past 12 months, has t he [employer], gas, oil or water company threatened to [...] Date Job End Date [employer] Not on file Not on fi le Not on file documented as of this encounter Plan of Treatment Upcoming Encounters Date Type Department Care Team (Late st Contact Info) Description 08/17/2025 10:30 AM EDT Office Visit [facility] [address] [place] [phone] Agnes Christopher MD [address] [place] [phone] documented as of this encounter Visit Diagnoses Diagnosis Type 2 diabetes mellitus without complication, unspecified whether treating plant pumper insulin use ([facility]) documented in this encounter Additional Health Concerns Assessment Noted Time PHQ-9 Depression Total Score: 1 09/07/20 24 9:17 AM EST documented as of this encounter Care Teams Chief Technical Officer Relationship Specialty Start Date End Date Agnes Christopher MD [address] [place] [phone] PCP - General Family Medicine 06/09/19 Elena Norris OD [address] [place] [address] Optometry 11/10/24 Jazmine Moreno [address] [place] [address] Drive 3rd [place] [address] Gastroenterology 04/01/25 documented as of this encounter
--- OUTSIDE RECORDS SUMMARY | 2025-07-05 16:12 | XMS_ITS | Encounter Summary ---
Author Organization [email or web address] Address [address] [facility] 7 [place] [address] Care Team Providers Care Clinical Quality Analyst Name Role Phone Agnes Christopher MD Primary Care Provider [phone] MyrnaElena OD Unavailable [phone] TiffanieJazmine guerrier Unavailable Reason for Visit * Reason Onset Date Comments Med Refill 06/01/2025 Encounter Details Date Type Department Care Team (Late st Contact Info) Description 06/01/2025 Refill [facility] [address] [place], [place] [phone] Agnes Christopher MD [address] [place], [place] [phone] Primary ovarian failure Social History Tobacco Use [...] Date Job End Date [employer] Medicare Contact Specialist Not on file Not on fi le Not on file documented as of this encounter Plan of Treatment Upcoming Encounters Date Type Department Care Team (Late st Contact Info) Description 08/17/2025 10:30 AM EDT Office Visit [facility] [address] [place] [phone] Agnes Christopher MD [address] [place] [phone] documented as of this encounter Visit Diagnoses Diagnosis Primary ovarian failure Other ovarian failure documented in this encounter Additional Health Concerns Assessment Noted Time PHQ-9 Depression Total Score: 1 09/07/20 24 9:17 AM EST documented as of this encounter Care Teams Clinical Quality Analyst Relationship Specialty Start Date End Date Agnes Christopher MD [address] [place] [phone] PCP - General Family Medicine 06/09/19 Elena Norris OD [address] [place] [address] [phone] Optometry 11/10/24 Jazmine Moreno [address] [facility] [address] 3rd [place] [address] Gastroenterology 04/01/25 documented as of this encounter
--- OUTSIDE RECORDS SUMMARY | 2025-07-05 16:12 | XMS_ITS | Encounter Summary ---
Author Organization [employer] Address [address] [place] [address] 7t [place] [address] Care Team Providers Care Blacksmith Helper Name Role Phone Agnes Christopher MD Primary Care Provider [phone] Graciela Norrisgarrick LARSON Unavailable [phone] Jazmine Moreno Unavailable Encounter Details Date Type Department Care Team ([facility] Contact Info) Description 06/19/2023 Orders Only [facility] [address] [place] [address] [phone] Agnes Christopher MD [address] [place] [address] [phone] Social History Tobacco Use Types Packs/Day Years [...] Upcoming Encounters Date Type Department Care Team ([facility] Contact Info) Description 08/17/2025 10:30 AM EDT Office Visit [facility] [address] [place] [address] [phone] Agnes Christopher MD [address] [place] [address] [phone] documented as of this encounter Visit Diagnoses Not on filedocumented in this encounter Care Teams Blacksmith Helper Relationship Specialty Start Date End Date Agnes Christopher MD [address] [place] [address] PCP - General Family Medicine 06/09/19 Elena Norris OD [address] [place] [address] Optometry 11/10/24 Jazmine Moreno [address] [place] [address] Drive 3rd [place] [address] Gastroenterology 04/01/25 documented as of this encounter
--- OUTSIDE RECORDS SUMMARY | 2025-07-05 16:12 | XMS_ITS | Encounter Summary ---
Author Organization [email or web address] Address [address] [place] [address] 7 [place] [address] Care Team Providers Care Typing Secretary Name Role Phone Agnes Christopher MD Primary Care Provider MyrnaElena OD Unavailable [phone] Jazmine Moreno Unavailable Encounter Details Date Type Department Care Team ([facility] Contact Info) Description 12/10/2022 Orders Only [facility] [address] [place] [address] [phone] Agnes Christopher MD [address] [place] [address] [phone] Social History Tobacco Use Types Packs/Day Years Used Date Smoking Tobacco: Never Smokeless Tobacco: Never Comments Unknown Sex and Gender Information Value Date Recorded Sex Assigned at Female 09/02/2022 10:35 AM EDT Legal Sex Female 10:35 AM EDT Gender Identity Female 09/02/2022 10:35 AM EDT Sexual Orientation Choose not to disclose 2021 10:35 AM EDT COVID-19 Exposure Response Date Recorded In the last 10 days, have yo u been in contact with someone who was confirmed or suspected to have Coronavirus/COVID-19? No / Unsure 12/05/2022 2:46 PM EST documented as of this encounter Plan of Treatment Upcoming Encounters Date Type Department Care Team ([facility] Contact Info) Description 08/17/2025 10:30 AM EDT Office Visit [facility] [address] [place] [phone] Agnes Christopher MD [address] [place] [address] documented as of this encounter Visit Diagnoses Not on filedocumented in this encounter Care Teams Typing Secretary Relationship Specialty Start Date End Date Agnes Christopher MD [address] [place] [address] PCP - General Family Medicine 06/09/19 Elena Norris OD [address] [place], [place] [phone] Optometry 11/10/24 Jazmine Moreno [address] [place] [address] 3rd [place] [address] Gastroenterology 04/01/25 documented as of this encounter
== END 2025-07-05 15:43 | disposition home or self-care (01) ==
LOC: HO.HGS 14:59
PROVIDERS: PCP Family Medicine; Referring Provider Family Medicine; Visit Provider Surgery
DX: N64.4 Mastodynia (principal)
CPT/HCPCS: 99204

== ENCOUNTER → 2025-07-05 14:59 | Outpatient (BNVA) | payer OTHER, SELFPAY | PROVIDERS: PCP Family Medicine; Referring Provider Family Medicine; Visit Provider Surgery | DX: N64.4 Mastodynia (principal) | CPT/HCPCS: 99202 ==

== ENCOUNTER 2025-07-19 08:38 | Outpatient (REF) | payer OTHER, SELFPAY ==
--- OUTSIDE RECORDS SUMMARY | 2025-07-18 11:30 | XMS_ITS | Encounter Summary ---
Author Organization [employer] Address [address] [place] [address] 7 [place] [address] Care Team Providers Care Miner Placer Name Role Phone Agnes Christopher MD Primary Care Provider +1- [phone] MyrnaTimothyElena OD Unavailable [phone] TiffanieJazmine guerrier Unavailable Reason for Referral * Consultation (Routine) - Authorized Specialty Diagnoses / Procedures Referred By Jailene south Referred To Contact Pharmacy Diagnoses Type 2 diabetes mellitus without complication, without long-term current use of insulin (CMS/HCC) Agnes Christopher MD [address] [place] [address] Phone: tel: fax: Referral ID Status Reason Start Date Expiration Date Visits Requested Visits Authorized [id number] Authorized Consult and Treat 07/18/2025 07/18/2026 6 6 Scheduling Instructions I know she is controlled but I am having trouble finding a med she can take Encounter Details Date Type Department Care Team (Late st Contact Info) Description 07/18/2025 11:30 AM EDT Telemedicine [facility] [address] [place] [address] Agnes Christopher MD [address] [place], [place] [phone] Type 2 diabetes mellitus without complication, without long-term current use of insulin (CMS/HCC) (Primary Dx); Candidiasis Social History Tobacco Use Types Packs/Day Years [...] 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 Danish Sign Language used for visit. H. Pylori testing done 04/12/25 was negative. Over the past year we had held both metformin and Trulicity to see if this improved her GI symptoms. It did not seem to help and her blood sugars increased so we restarted the Trulicity at the lowest dose. She is not sure if the symptoms got worse in restarting the Trulicity but it does appear her reflux symptoms worsened with restarting the medication. I tried to change to the next covered GLP-1 which is Ozempic but this was denied by her insurance,as was the appeal. We tried glipizide and she ended up in the ER with severe symptomatic hypoglycemia despite taking the medication correctly. Barium swallow is not until July 19. She saw her gas troenterologist, Matt Barrera CLINICAL REGISTERED NURSE-BC 06/21/25. The plan is to discontinue pantoprazole and start Nexium 40mg daily. Pt called today with reports of BGL of around 205. She did have breakfast this morning prior to theBGL recordings. Still waiting to hear if pt is accepted to get Kristofer. Will refer to Collaborative Drug Therapy Managment Program with our PharmD, DOMI in the meantime and pt agrees with this plan. She also reports itching of her vaginal area and suspects she is getting a yeast infection. Will prescribe antifungal. Assessment & Plan Type 2 diabetes mellitus without complication, without long-term current use of insulin ([facility]) Diagnosed 01/2021 based on non-fasting glucose of [...] that was started on 01/23/23 but she had lots of nausea and stomach upset, we tried to stop this in the past but her blood sugars were uncontrolled. We retried it but she is still having significant nausea so discontinued 06/27/25. ' -Ozempic denied 06/02/25 by insurance including appeal -Metformin discontinued 04/07/25 due to stomach upset and nausea with vomiting -Discontinued glipizide 2.5mg due to severe hypoglycemia with severe symptoms requiring ER visit 07/2025 -I would like to avoid insulin due to labile blood sugars. Her diabetes was controlled on a Glp-1 but she can't tolerate Trulicity. She also can't tolerate Metformin. We have stopped and started the medications several times. -she is not on any medication for diabetes right now and repots blood sugars in the mid 250s to [id number] at home. She follows a diabetic diet and regularly goes to the gym at [employer] for > 3 years. -Rx Munjaro 2.5 mg, PA requested -referred to Collaborative Drug Therapy Managment Program with our PharmDDOMI 07/18/25 Orders: Referral to Pharmacy CDTM Candidiasis Hx of BV, reports symptoms of possible yeats infection. Will trial clotrimazole 07/18/25 Orders: clotrimazole (Lotrimin) 1 % vaginal cream; Insert one applicator per vagina at bedtime for 7 nights Follow up in about 2 months (around 09/17/2025) for physical. IPaul, am serving as a scribe to document services personally performed by Dr. Akins, based on the patient's response to questions by provider and providers statements to me. documented in this encounter Miscellaneous Notes * Assessment & Plan Note - Agnes Christopher MD - 07/18/2025 11:30 AM EDT Associated Problem(s): Type 2 diabetes mellitus without complication ([facility]) Diagnosed 01/2021 based on non-fasting glucose of [...] that was started on 01/23/23 but she had lots of nausea and stomach upset, we tried to stop this in the past but her blood sugars were uncontrolled. We retried it but she is still having significant nausea so discontinued 06/27/25. ' -Ozempic denied 06/02/25 by insurance including appeal -Metformin discontinued 04/07/25 due to stomach upset and nausea with vomiting -Discontinued glipizide 2.5mg due to severe hypoglycemia with severe symptoms requiring ER visit 07/2025 -I would like to avoid insulin due to labile blood sugars. Her diabetes was controlled on a Glp-1 but she can't tolerate Trulicity. She also can't tolerate Metformin. We have stopped and started the medications several times. -she is not on any medication for diabetes right now and repots blood sugars in the mid 250s to [id number] at home. She follows a diabetic diet and regularly goes to the gym at [employer] for > 3 years. -Rx Munjaro 2.5 mg, PA requested -referred to Collaborative Drug Therapy Managment Program with our DOMI Sahu 07/18/25 Orders: Referral to Pharmacy CDTM documented in this encounter Plan of Treatment Upcoming Encounters Date Type Department Care Team (Late st Contact Info) Description 07/26/2025 9:30 AM EDT Medication Management [facility] MEDICINE [address] [place] [phone] Jenna Maradiaga PharmD [address] [place] [address] 08/17/2025 10:30 AM EDT Office Visit [facility] [address] [place] [address] Agnes Christopher MD [address] [place] [address] Scheduled Referrals Name Type Priority Associated Diagnoses Orde r Schedule Referral to Pharmacy CDTM Outpatient Referral Routine Type 2 diabetes mellitus without complication, without long-term current use of insulin ([facility]) Ordered: 07/18/2025 documented as of this encounter Visit Diagnoses Diagnosis Type 2 diabetes mellitus without complication, without long-term current use of insulin ([facility])- Primary Candidiasis documented in this encounter Additional Health Concerns Assessment Noted Time PHQ-9 Depression Total Score: 1 09/07/20 24 9:17 AM EST documented as of this encounter Care Teams Miner Placer Relationship Specialty Start Date End Date Agnes Christopher MD [address] [place] [address] PCP - General Family Medicine 06/09/19 Elena Norris OD [address] [place] [address] Optometry 11/10/24 Jazmine Moreno [address] [place] [address] 3rd [place] [address] Gastroenterology 04/01/25 documented as of this encounter
--- NOTE | ~2025-07-19 | FL_ITS ---
EXAMINATION: XR FLUOROSCOPY UPPER GI SERIES CLINICAL INFORMATION: GERD symptoms. COMPARISON: None TECHNIQUE: Fluoroscopic air contrast upper GI examination was performed utilizing standard techniques with thin and thick barium and effervescent granules. Numerous spot images were obtained. Several fluoroscopic image hold cine sequences were also obtained. FINDINGS: Study is mildly limited secondary to patient deafness and thus being unable to accurately follow commands during the procedure, despite the use of the visual environment friendly landscape designer. This limits the sensitivity of the study. UPPER GI SERIES: Lateral cine images of the oropharynx and hypopharynx demonstrate normal swallow mechanism with normal epiglottic inversion and soft palate elevation. No laryngeal penetration, glottic or subglottic aspiration identified. Hypopharyngeal structures appear normal without evidence of mass or diverticulum. There was no significant cricopharyngeal achalasia. Dual and single contrast images of the esophagus demonstrate normal caliber, contour, and mucosal pattern. No evidence of stricture, mass, or ulcerations identified. Esophageal peristalsis was normal. No evidence of hiatus hernia identified. No significant gastroesophageal reflux was seen during the course of the examination. Dual contrast and single contrast images of the stomach demonstrated normal contour and mucosal pattern without evidence of mass, ulceration, or other abnormality. Normal rugal fold pattern. Contrast freely passed into the gastric antrum and duodenal bulb without delay. Single and air-contrast images of the duodenal bulb demonstrate no abnormality. The duodenal sweep has a normal appearance, course, and mucosal fold appearance. FLUOROSCOPY TIME: 1 minute, 11 seconds Number of Spot Images:12 Number of cines obtained: 5 DOSE AREA PRODUCT: 2422 uGy-m2 (microgray-meter squared) FL/FL upper GI w air w Ba Swallow IMPRESSION: 1. Normal upper GI examination. Electronically signed by: Wu Ruggiero MD 07/19/2025 03:27 PM EDT
--- OUTSIDE RECORDS SUMMARY | 2025-07-19 10:26 | XMS_ITS | Encounter Summary ---
Author Organization [employer] Address [address] [facility] 7 [place] [address] Care Team Providers Care Clinical Study Manager Name Role Phone Agnes Christopher MD Primary Care Provider [phone]- [phone] Myrna Elena OD Unavailable [phone] Jazmine Moreno Unavailable Reason for Visit * Reason Onset Date Comments Prior Authorization 07/12/2025 Brent THOMPSON : Kristofer Encounter Details Date Type Department Care Team (Late st Contact Info) Description 07/12/2025 Telephone [facility] [address] [place], [place] [phone] Agnes Christopher MD [address] [place], [place] [phone] Prior Authorization (Brent Miner) Social History Tobacco Use Types Packs/Day Years [...] the past 12 months, has t he [employer], gas, oil or water company threatened to [...] 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 Approval/denial pending. (Holden: [id number]) Rx #: [id number] * Telephone Encounter - Agnes Christopher MD - 07/12/2025 7:36 PM EDT Please start PA for Marilynnro. Please see note from 07/12/25. Thank you. documented in this encounter Plan of Treatment Upcoming Encounters Date Type Department Care Team (Late st Contact Info) Description 07/26/2025 9:30 AM EDT Medication Management [facility] [address] [place] [address] Jenna Maradiaga, Adelina [address] [place] [address] 08/17/2025 10:30 AM EDT Office Visit [facility] [address] [place] [address] Agnes Christopher MD [address] [place] [address] documented as of this encounter Visit Diagnoses Not on filedocumented in this encounter Additional Health Concerns Assessment Noted Time PHQ-9 Depression Total Score: 1 09/07/20 24 9:17 AM EST documented as of this encounter Care Teams Clinical Study Manager Relationship Specialty Start Date End Date Agnes Christopher MD [address] [place] [address] [phone] PCP - General Family Medicine 06/09/19 Elena Norris OD [address] [place] [address] Optometry 11/10/24 Jazmine Moreno [address] [place] [address] Drive 3rd [place] [address] Gastroenterology 04/01/25 documented as of this encounter
--- OUTSIDE RECORDS SUMMARY | 2025-07-19 10:26 | XMS_ITS | Encounter Summary ---
Author Organization [employer] Address [address] [place] [address] 7t [place] [address] Care Team Providers Care Rayon Coner Name Role Phone Agnes Christopher MD Primary Care Provider [phone]- [phone] RafacristinaElena OD Unavailable [phone] TiffanieJazmine guerrier Unavailable Encounter Details Date Type Department Care Team (Late Contact Info) Description 05/21/2024 Orders Only [facility] [address] [place] [address] Agnes Christopher MD [address] [place], [place] [phone] Bacterial vaginosis (Primary Dx) Social History Tobacco [...] Department Care Team (Late Contact Info) Description 07/26/2025 9:30 AM EDT Medication Management [facility] [address] [place] [address] Jenna Maradiaga, PharmD [address] [place] [address] 08/17/2025 10:30 AM EDT Office Visit [facility] [address] [place] [address] Agnes Christopher MD [address] [place] [address] documented as of this encounter Visit Diagnoses Diagnosis Bacterial vaginosis- Primary Unspecified vaginitis and vulvovaginitis documented in this encounter Care Teams Rayon Coner Relationship Specialty Start Date End Date Agnes Christopher MD [address] [place], [place] [phone] PCP - General Family Medicine 06/09/19 Elena Norris OD [address] [place] [address] [phone] Optometry 11/10/24 Jazmine Moreno [address] [place] [address] 3rd [place] [address] Gastroenterology 04/01/25 documented as of this encounter
--- OUTSIDE RECORDS SUMMARY | 2025-07-19 10:26 | XMS_ITS | Encounter Summary ---
Author Organization [employer] Address [address] [place] [address] 7 [place] [address] Care Team Providers Care Horticulture Teacher Name Role Phone Agnes Christopher MD Primary Care Provider MyrnaElena OD Unavailable [phone] Jazmine Moreno Unavailable Encounter Details Date Type Department Care Team ([facility] Contact Info) Description 12/10/2022 Orders Only [facility] MEDICINE [address] [place] [address] Agnes Christopher MD [address] [place] [address] [phone] Social History Tobacco Use Types Packs/Day Years [...] Upcoming Encounters Date Type Department Care Team ([facility] Contact Info) Description 07/26/2025 9:30 AM EDT Medication Management [facility] [address] [place] [address] Jenna Maradiaga, Adelina [address] [place] [address] 08/17/2025 10:30 AM EDT Office Visit [facility] [address] [place] [address] Agnes Christopher MD [address] [place], [place] [phone] documented as of this encounter Visit Diagnoses Not on filedocumented in this encounter Care Teams Horticulture Teacher Relationship Specialty Start Date End Date Agnes Christopher MD [address] [place], [place] [phone] PCP - General Family Medicine 06/09/19 Elena Norris OD [address] [place] [address] [phone] Optometry 11/10/24 Jazmine Moreno [address] [place] [address] Drive 3rd [place] [address] Gastroenterology 04/01/25 documented as of this encounter
--- OUTSIDE RECORDS SUMMARY | 2025-07-19 10:27 | XMS_ITS | Encounter Summary ---
Author Organization [facility] [employer] Address [address] [place] [address] 7 [place] [address] Care Team Providers Care Lead Setter Name Role Phone Agnes Christopher MD Primary Care Provider Elena Norris OD Unavailable [phone] Jazmine Moreno Unavailable Encounter Details Date Type Department Care Team (Latest Contact Info) Description 09/24/2019 Abstract [facility] CONVERSIONS Dental, Provider, DDS Social History [...] Upcoming Encounters Date Type Department Care Team ( Contact Info) Description 07/26/2025 9:30 AM EDT Medication Management [facility] [address] [place] [address] Jenna Maradiaga, PharmD [address] [place] [address] 08/17/2025 10:30 AM EDT Office Visit [facility] [address] [place] [address] Agnes Christopher MD [address] [place] [address] documented as of this encounter Visit Diagnoses Not on filedocumented in this encounter Care Teams Lead Setter Relationship Specialty Start Date End Date Agnes Christopher MD [address] [place] [address] PCP - General Family Medicine 06/09/19 Elena Norris OD [address] [place] [address] [phone] Optometry 11/10/24 Jazmine Moreno [address] 3rd [place] [address] Gastroenterology 04/01/25 documented as of this encounter
--- OUTSIDE RECORDS SUMMARY | 2025-07-19 10:27 | XMS_ITS | Encounter Summary ---
Author Organization [employer] Address [address] [facility] 7 [place] [address] Care Team Providers Care Radiation Oncology Manager Name Role Phone Agnes Christopher MD Primary Care Provider [phone] MyrnaElena OD Unavailable [phone] TiffanieJazmine guerrier Unavailable Reason for Visit * Reason Onset Date Comments Med Refill 06/01/2025 Encounter Details Date Type Department Care Team (Late st Contact Info) Description 06/01/2025 Refill [facility] [address] [place], [place] [phone] Agnes Christopher MD [address] [place], [place] [phone] Primary ovarian failure Social History Tobacco Use [...] 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 on fi le Not on file documented as of this encounter Plan of Treatment Upcoming Encounters Date Type Department Care Team (Late st Contact Info) Description 07/26/2025 9:30 AM EDT Medication Management [facility] MED[facility]INE [address] [place] [address] Jenna Maradiaga, PharmD [address] [place] [address] 08/17/2025 10:30 AM EDT Office Visit [facility] [address] [place] [address] Agnes Christopher MD [address] [place] [address] documented as of this encounter Visit Diagnoses Diagnosis Primary ovarian failure Other ovarian failure documented in this encounter Additional Health Concerns Assessment Noted Time PHQ-9 Depression Total Score: 1 09/07/20 24 9:17 AM EST documented as of this encounter Care Teams Radiation Oncology Manager Relationship Specialty Start Date End Date Agnes Christopher MD [address] [place] [address] PCP - General Family Medicine 06/09/19 Elena Norris OD [address] [place] [address] Optometry 11/10/24 Jazmine Moreno [address]rd [place] [address] Gastroenterology 04/01/25 documented as of this encounter
--- OUTSIDE RECORDS SUMMARY | 2025-07-19 10:27 | XMS_ITS | Encounter Summary ---
Author Organization [employer] Address [address] [place] [address] 7 [place] [address] Care Team Providers Care Paper Testing Supervisor Name Role Phone Agnes Christopher MD Primary Care Provider [phone] MyrnaTimothyElena OD Unavailable [phone] Jazmine Moreno Unavailable Reason for Referral * Consultation (Routine) - Closed Specialty Diagnoses / Procedures Referred By Jailene south Referred To Contact Gastroenterology Diagnoses Epigastric pain Agnes Christopher MD [address] [place] [address] Phone: tel: fax: [facility] Referral ID Status Reason Start Date Expiration Date V isits Requested Visits Authorized [id number] Closed Specialty Services Required 12/06/2024 12/06/2025 1 1 Encounter Details Date Type Department Care Team (Late st Contact Info) Description 12/06/2024 Orders Only [facility] [address] [place], [place] [phone] Agnes Christopher MD [address] [place] [address] Epigastric pain (Primary Dx); Generalized [...] 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 on file documented as of this encounter Plan of Treatment Upcoming Encounters Date Type Department Care Team (Late st Contact Info) Description 07/26/2025 9:30 AM EDT Medication Management [facility] [address] [place] [address] Jenna Maradiaga, PharmD [address] [place] [address] 08/17/2025 10:30 AM EDT Office Visit [facility] [address] [place] [address] Agnes Christopher MD [address] [place] [address] Scheduled Referrals Name Type Priority Associated Diagnoses [...] documented as of this encounter Care Teams Paper Testing Supervisor Relationship Specialty Start Date End Date Agnes Christopher MD [address] [place] [address] PCP - General Family Medicine 06/09/19 Elena Norris OD [address] [place] [address] Optometry 11/10/24 Jazmine Moreno [address] 3rd [place] [address] Gastroenterology 04/01/25 documented as of this encounter
--- OUTSIDE RECORDS SUMMARY | 2025-07-19 10:27 | XMS_ITS | Encounter Summary ---
Author Organization [employer] Address [address] [place] [address] 7 [place] [address] Care Team Providers Care Maintenance And Operations Supervisor Name Role Phone Agnes Christopher MD Primary Care Provider [phone] MyrnaElena OD Unavailable [phone] TiffanieJazmine guerrier Unavailable Reason for Visit * Reason Onset Date Comments Med Refill 05/13/2025 Encounter Details Date Type Department Care Team (Late st Contact Info) Description 05/13/2025 Refill [facility] [address] [place], [place] [phone] Agnes Christopher MD [address] [place], [place] [phone] Type 2 diabetes mellitus without complication, unspecified whether chcf insulin use ([facility]) Social History Tobacco Use Types Packs/Day Years [...] the past 12 months, has t he [employer], gas, oil or water company threatened to [...] 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 on file documented as of this encounter Plan of Treatment Upcoming Encounters Date Type Department Care Team (Late st Contact Info) Description 07/26/2025 9:30 AM EDT Medication Management [facility] MEDICINE [address] [place] [address] Jenna Maradiaga, PharmD [address] [place] [address] 08/17/2025 10:30 AM EDT Office Visit [facility] MEDICINE [address] [place] [address] Agnes Christopher MD [address] [place] [address] documented as of this encounter Visit Diagnoses Diagnosis Type 2 diabetes mellitus without complication, unspecified whether chcf insulin use ([facility]) documented in this encounter Additional Health Concerns Assessment Noted Time PHQ-9 Depression Total Score: 1 09/07/20 24 9:17 AM EST documented as of this encounter Care Teams Maintenance And Operations Supervisor Relationship Specialty Start Date End Date Agnes Christopher MD [address] [place] [address] PCP - General Family Medicine 06/09/19 Elena Norris OD [address] [place] [address] Optometry 11/10/24 Jazmine Moreno [address] 3rd [place] [address] Gastroenterology 04/01/25 documented as of this encounter
--- OUTSIDE RECORDS SUMMARY | 2025-07-19 10:27 | XMS_ITS | Clinical Summary ---
Author Organization [employer] Address [address] [place] [address] 7 [place] [address] Care Team Providers Care Optical Instrument Inspector Name Role Phone Agnes Christopher MD Primary Care Provider [phone] Elena Norris OD Unavailable [phone] TiffanieStephona Unavailable Allergies Active Allergy Reactions Criticality Noted Date Comments Glipizide 07/12/2025 Hypoglycemia, severe with smallest dose Medications glucose blood (FREESTYLE LITE) test stripIndications :Type 2 diabetes mellitus without complication, without long-term current use of insulin ([facility]) test blood sugar twice a day 50 [...] 2 diabetes mellitus without complication, unspecified whether terminal press operator insulin use ([facility]) TAKE 1 TABLET BY MOUTH EVERY DAY 90 tablet 05/13/20 25 Active TRUEplus Lancets 33G miscIndications: Type 2 diabetes mellitus without complication, without long-term current use of insulin ([facility]) Test blood sugar twice a day 100 each 05/16/20 25 Active glucose blood (FREESTYLE LITE) test stripIndications :Type 2 diabetes mellitus without complication, without long-term current use of insulin ([facility]) TEST BLOOD SUGARS TWICE A DAY 50 [...] complication, without long-term current use of insulin ([facility]) Inject 0.75 mg under the skin 1 (one) time per week. 2 mL 3 06/02/20 25 Active Tirzepatide (Mounjaro) 2.5 MG/0.5ML solution auto-injectorInd ications:Type 2 diabetes mellitus without complication, without long-term current use of insulin ([facility]) Inject 2.5 mg under the skin 1 (one) time per week. Start 2.5 mg weekly x 4 weeks, then increase to 5 mg weekly x 4 weeks, then 7.5 mg weekly 2 mL 07/12/20 25 025 Active clotrimazole (Lotrimin) 1 % vaginal creamIndications :Vulvovaginal Candidiasis Insert one applicator per vagina at bedtime for 7 nights 45 g 07/18/20 25 Active glipiZIDE 2.5 MG tabletIndication s:Type 2 diabetes mellitus without complication, without long-term current use of insulin ([facility]) Take 1 tablet (2.5 mg) by mouth with breakfast. 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 Chronic RIGHT nipple swelling now with significant pain and edema. Seen by surgeon Dr. Sauer 07/05/25 enlargement of both nipple-areolar complexes with no underlying mass appreciated. I recommended further evaluation with mammogram and ultrasound. She will follow up following the studies to review the results and discuss treatment options. I also recommended saddle stitch operator evaluation regarding her questions regarding estrogen and progesterone replacement. Assessment & Plan (06/06/2025 11:45 AM EDT): [...] improvement. -UA normal 11/15/24 -seen by Dr. Moreno GI 03/29/25 Discontinue omeprazole. Start pantoprazole 40 mg [...] 09/07/24 -UA normal 11/15/24 -seen by Dr. Moreno GI 03/29/25 Discontinue [...] due after 05/11/2025 -eye care facilitated by [facility] -dental home is 's dentist, not sure of name -health care proxy given and filed 05/11/24 Assessment & Plan (05/11/2024 9:42 AM EDT): -next physical exam due after 05/11/2025 -eye care facilitated by [facility] , referral placed 05/10/24 -dental home [...] Type 2 diabetes mellitus without complication Overview (07/18/2025): Diagnosed 01/2021 based on non-fasting glucose of [...] blood sugars in the mid 250s to low 300s at home. She follows a diabetic diet and regularly goes to the gym at [employer] for > 3 years. -Rx Munjaro 2.5 mg, PA requested -referred to Collaborative Drug Therapy Managment Program with our JuneDDOMI 07/18/25 Assessment & Plan (07/18/2025 11:24 AM EDT): Diagnosed 01/2021 based on non-fasting [...] blood sugars in the mid 250s to low 300s at home. She follows a diabetic diet and regularly goes to the gym at [employer] for > 3 years. -Rx Munjaro 2.5 mg, PA requested -referred to Collaborative Drug Therapy Managment Program with our DOMI Sahu 07/18/25 Orders: Referral to Pharmacy CDTM Assessment & Plan (07/12/2025 7:36 PM EDT): Diagnosed 01/2021 based on non-fasting [...] blood sugars in the mid 250s to low 300s at home. She follows a diabetic diet and regularly goes to the gym at [employer] for > 3 years. -Rx Munjaro 2.5 mg, PA requested Orders: Tirzepatide (Mounjaro) 2.5 MG/0.5ML solution auto-injector; Inject 2.5 mg under the skin 1 (one) time per week. Start 2.5 mg weekly x 4 weeks, then increase to 5 mg weekly x 4 weeks, then 7.5 mg weekly Assessment & Plan (06/27/2025 9:46 AM EDT): [...] amenorrhea. Pt previously followed by endocrinology at [facility] with primary amenorrhea. Chromosomal analysis unremarkable. Started [...] and this should be continued. She saw [facility] with Dr. Marycarmen Long MD on 07/2021. It was discussed that is very unlikely, although not impossible that she would conceive spontaneously. She was referred for IVF to [facility] [phone] and they stated they do not take [facility]. They recommend pt call connector care for [facility] where. If IVF did not work, she could be sent to [facility]. -will check US to evaluate if [...] EDT): Pt previously followed by endocrinology at [facility] with primary amenorrhea. Chromosomal analysis unremarkable. Started [...] and this should be continued. She saw [facility] with Dr. Marycarmen Long MD on 07/2021. It was discussed that is very unlikely, although not impossible that she would conceive spontaneously. She was referred for IVF to [facility] [phone] and they stated they do not take [facility]. They recommend pt call [facility] for [facility] where. If IVF did not work, she could be sent to [facility]. -will check US to evaluate if [...] EDT): Pt previously followed by endocrinology at [facility] with primary amenorrhea. Chromosomal analysis unremarkable. Started [...] and this should be continued. She saw [facility] with Dr. Marycarmen Long MD on 07/2021. It was discussed that is very unlikely, although not impossible that she would conceive spontaneously. She was referred for IVF to [facility] [phone] and they stated they do not take [facility] [employer] [facility]. They recommend pt call [facility] for [facility] where. If IVF did not work, she could be sent to [facility]. -will check US to evaluate if [...] EDT): Pt previously followed by endocrinology at [facility] dx with primary amenorrhea. Chromosomal analysis unremarkable. Started [...] and this should be continued. She saw Rust Renetta with Dr. Marycarmen Long MD on 07/2021. It was discussed that is very unlikely, although not impossible that she would conceive spontaneously. She was referred for IVF to [facility] [phone] and they stated they do not take [facility]. They recommend pt call [facility] for [facility] where. If IVF did not work, she could be sent to [facility]. -will check US to evaluate if [...] Bilateral deafness 11/14/2022 Overview (05/10/2024): -Patient needs medical claims specialist for all visits. Please make note of this in any referrals. Assessment & Plan (04/12/2025 5:43 PM EDT): Assessment & Plan (05/11/2024 9:42 AM EDT): -Patient needs medical claims specialist for all visits. Please make note of [...] 20 mg BID 12/06/24 -seen by Dr. 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 Advised to ask at [...] Encounters Date Type Department Care Team Description 07/18/2025 11:30 AM EDT Telemedicine [facility] [address] [place] [phone] Agnes Christopher MD Type 2 diabetes mellitus without complication, without long-term current use of insulin (CMS/HCC) (Primary Dx); Candidiasis 07/12/2025 6:20 PM EDT Telemedicine [facility] [address] [place] [address] [phone] Agnes Christopher MD Type 2 diabetes mellitus without complication, without long-term current use of insulin (CMS/HCC) (Primary Dx) 07/12/2025 Telephone [facility] [address] [place] [address] 23051 Agnes Christopher MD Prior Authorization ([facility]: Kristofer) 07/12/2025 Travel 07/08/2025 Telephone [facility] [address] [place] [address] Gail Trejo, RN LACTATION CONSULTANT Expect 06/27/2025 9:15 AM EDT Telemedicine [facility] [address] [place] [address] Agnes Christopher MD Type 2 diabetes mellitus without complication, without long-term current use of insulin (CMS/[facility]) (Primary Dx); Chronic gastritis without bleeding, unspecified gastritis type 06/27/2025 Telephone [facility] [address] [place] [address] Agnes Christopher MD 06/27/2025 Travel 06/07/2025 Refill [facility] [address] [place] [address] [phone] Agnes Christopher MD Vitamin D deficiency 06/06/2025 10:45 AM EDT Telemedicine [facility] [address] [place] [address] [phone] Agnes Christopher MD Nipple anomaly (Primary Dx); Type 2 diabetes mellitus without complication, without long-term current use of insulin (CMS/HCC) 06/06/2025 Travel 06/02/2025 Orders Only [facility] [address] [place] [address] [phone] Agnes Christopher MD Type 2 diabetes mellitus without complication, without long-term current use of insulin (CMS/[facility]) (Primary Dx) 06/01/2025 Refill [facility] [address] [place] [address] 11953 Agnes Christopher MD Primary ovarian failure 06/01/2025 Refill [facility] [address] [place] [address] [phone] Agnes Christopher MD Type 2 diabetes mellitus without complication, without long-term current use of insulin (CMS/HCC) 05/25/2025 Refill [facility] [address] [place] [address] [phone] Agnes Christopher MD Constipation, unspecified constipation type 05/23/2025 Refill [facility] [address] [place] [address] Agnes Christopher MD Vitamin D deficiency 05/18/2025 11:15 AM EDT Telemedicine [facility] [address] [place] [address] [phone] Agnes Christopher MD Type 2 diabetes mellitus without complication, without long-term current use of insulin (CMS/HCC) (Primary Dx); Bilateral deafness 05/18/2025 Travel 05/13/2025 Refill [facility] [address] [place] [address] Agnes Christopher MD Type 2 diabetes mellitus without complication, without long-term current use of insulin (CMS/HCC) 05/13/2025 Refill [facility] [address] [place] [address] Agnes Christopher MD Type 2 diabetes mellitus without complication, without long-term current use of insulin (CMS/HCC) 05/13/2025 Refill [facility] [address] [place] [address] 47922 Agnes Christopher MD Type 2 diabetes mellitus without complication, unspecified whether halfway insulin use (CMS/HCC) 05/13/2025 Telephone [facility] [address] [place] [address] 51743 Agnes Christopher MD Prior Authorization 05/13/2025 Refill [facility] [address] [place] [address] [phone] Agnes Christopher MD Type 2 diabetes mellitus without complication, unspecified whether halfway insulin use (CMS/HCC) 04/26/2025 Orders Only GENERIC EXTERNAL DATA DEPARTMENT Provider, Generic External Data 04/20/2025 9:15 AM EDT Telemedicine [facility] [address] [place] [address] 22547 Agnes Christopher MD Type 2 diabetes mellitus without complication, without long-term current use of insulin (CMS/HCC) (Primary Dx); Chronic gastritis without bleeding, unspecified gastritis type 04/20/2025 Travel 04/20/2025 Telephone [facility] [address] [place] [address] 38073 Agnes Christopher MD from Last 3 Months Immunizations Immunization Administration [...] Date 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 Not on fi le [...] Description 07/26/2025 9:30 AM EDT Medication Management [facility] [address] [place] [address] [phone] Jenna Maradiaga, PharmD [address] [place] [phone] 08/17/2025 10:30 AM EDT Office Visit [facility] [address] [place] [address] [phone] Agnes Christopher MD [address] [place] [phone] Health Maintenance Due Date Last Done Comments [...] 05/18/2026 05/18/2025 Depression Screening 06/27/2026 06/27/2025, 09/07/20 Eye Exam 10/19/2026 10/19/2024, 10/03, 10/19/2024, Additional [...] EDT LIPASE Routine 04/26/2025 8:28 AM EDT POCT GLYCOSYLATED HEMOGLOBIN (HGB A1C) Routine 04/08/2025 10:09 AM EDT Type 2 diabetes mellitus without complication, without long-term current use of insulin (CMS/HCC) HPV MRNA E6/E7 REFLEX TO HPV 16, 18/45 Routine 11/10/2024 12:00 AM EST PAP SMEAR Routine 11/10/2024 12:00 AM EST Cervical cancer screening ALBUMIN, RANDOM URINE W/CREATININE Routine 09/07/2024 10:18 AM EST Type 2 diabetes mellitus without complication, unspecified whether halfway insulin use (CMS/HCC) LIPID PANEL, STANDARD Routine [...] EDT) Vitamin D, 25-OH, D2 <4 ng/mL [facility] Comment:This test was develo ped and its analytical performancecharacteristics have been determined by [employer] [place], [place]. It hasnot been cleared or approved by the U.S. Food and DrugAdministration. This assay has been validated pursuantto the CLIA regulations and is used for clinicalpurposes.THIS TEST WAS PERFORMED AT:[facility]/[employer] [id number] [place] [address]ODJAUNQCRISTY RANDLE MD,PHD Vitamin D, 25-OH, D3 49 ng/mL [facility] Comment:This test was develo ped and its analytical performancecharacteristics have been determined by [employer] [place], [place]. It hasnot been cleared or approved by the U.S. Food and DrugAdministration. This assay has been validated pursuantto the CLIA regulations and is used for clinicalpurposes. Vitamin D, 25-OH, Total 49 30 - 100 ng/mL [facility] Comment:Vitamin D, 25-Hydrox y reports concentrations [...] = 30 ng/mL.For additional information, please refer tohttp://[employer]/faq/FPA855(This link is being provided for informational/educational purposes only.) 04/26/2025 8:28 AM EDT 04/26/2025 11:19 AM EDT Generic External Data Provider LAB BLOOD ORDERAB LES Final Result Performing Organization Address [facility] Co de Phone Number [facility] [address] [place] [address] [phone] * Vitamin B12 (Cobalamin) and Folate Panel, Serum (04/26/2025 8:28 AM EDT) Vitamin B12 595 200 - 900 pg/mL [facility] Comment:NORMAL 200-900 PG/ML INDETERMINATE 160-199 PG/ML DEFICIENT < 160 PG/ML Folate 10.8 > or = 4.0 ng/mL [facility] Comment:Reference Values:> o r = 4.0 ng/mL< 4.0 ng/mL suggests folate deficiency Methotrexate, aminopterin and folinic acid(leucovorin) are chemotherapeutic agents whose molecularstructures are similar to folate; therefore, the Architectfolate assay cannot be used for patients using these drugs. 04/26/2025 8:28 AM EDT 04/26/2025 11:19 AM EDT Generic External Data Provider LAB BLOOD ORDERAB LES Final Result Performing Organization Address [facility]/ZIP Co de Phone Number [facility] [address] [place] [phone] * Tissue Transglutaminase Antibody, IgA (04/26/2025 8:28 AM EDT) Transglutaminase IgA <1.0 U/mL [facility] Comment:Value Interpretation ----- <15.0 Antibody not detected> or = 15.0 Antibody detectedTHIS TEST WAS PERFORMED AT:[facility] [address] [id number] URENA MD 04/26/2025 8:28 AM EDT 04/26/2025 11:19 AM EDT Generic External Data Provider LAB BLOOD ORDERAB LES Final Result Performing Organization Address City/[facility]/ZIP Co de Phone Number [facility] [address] [place] [address] [phone] * Lipase (04/26/2025 8:28 AM EDT) Lipase 31 8 - 78 U/L [facility] 04/26/2025 8:28 AM EDT 04/26/2025 11:19 AM EDT Generic External Data Provider LAB BLOOD ORDERAB LES Final Result Performing Organization Address [facility] Co de Phone Number [facility] [address] [place] [address] [phone] * (ABNORMAL) POCT glycosylated hemoglobin (Hgb A1c) (04/08/2025 10:09 AM EDT) Hemoglobin A1C 6.6(A) 4.0 - 6.0 % QC Media Lot # [id number] Lot# Expiration Date ,755,[id number] Blood Capillary blood specimen / Unknown 04/08/2025 10:09 AM EDT Agnes Christopher MD POINT OF CARE TEST ENTER/E DIT ORDERABLES Final Result * HPV mRNA E6/E7 w/Reflex to HPV Genotypes 16, 18/45 (11/10/2024 12:00 AM EST) Historical Provider LAB CYTOLOGY ORDERABLES F inal Result * Pap Smear (11/10/2024 12:00 AM EST) Swab Cervix uteri structure / Unknown 11/10/2024 11/11/2024 7:40 AM EST Narrative [facility] - 11/16/2024 12:56 PM EST ----- ------- Name: Briana Garcia Age/Sex: 39/F : 1985 Unit#: [id number] Attend Dr: Agnes Christopher MD Re11/10/24 Status: [facility]ch: ----- ------- SPEC : [id number] RECD: 11/11/24 STATUS: JOSETTE YO NUM: [id number] FARAZ: 11/10/24-[address] [facility] [address]: Agnes Christopher MD ENTERED: 11/11/24 SP TYPE: Pap Smr [facility] DR: ORDERED: Pap Smear Interpretation Satisfactory for evaluation. Negative for intraepithelial lesion or malignancy. HPV High Risk: Negative HPV Genotyping 16: Negative HPV Genotyping 18: Negative Clinical Information LMP: Previous PAP test: 5 years ago, negative Other surgery: Other history: Material Received ThinPrep ----- ------- Signed (signature on file) CARMELINA Dowd ([facility]) 11/16/24 1256 ----- ------- END OF REPORT Agnes Christopher MD LAB CYTOLOGY ORDERABLES Fi nal Result Performing Organization Address [facility] Co de Phone Number [facility] [address] [place] [address] [phone] * Albumin, Random Urine W/Creatinine (09/07/2024 10:18 AM EST) Creatinine, Urine 151.12 mg/dL [facility] Microalbumin Urine 8.0 mg/L [facility] Microalbum Creatinine Ratio Ur 5.2 <30 ug/mg cr [facility] Comment:Albumin/Creatinine R atio Reference Ranges: Normal: < 30 ug/mg creatinine Microalbuminuria: 30 - 300 ug/mg creatinineClinical Albuminuria: > 300 ug/mg creatinine Urine 09/07/2024 10:1 8 AM EST 09/07/2024 11:11 AM EST Agnes Christopher MD LAB URINE ORDERABLES Final Result Performing Organization Address [facility] Co de Phone Number [facility] [address] [place] [address] [phone] * Lipid Panel, Standard (09/07/2024 10:18 AM EST) Triglycerides 84 <150 mg/dL [facility] Comment:Desirable Triglyceri de: less than 150 mg/dLBorderline High Triglyceride 150-199 mg/dLHigh Triglyceride: 200-499 mg/dLVery High Triglyceride: greater than or equal to 5OO mg/dL Cholesterol 136 <200 mg/dL [facility] Comment:Desirable Cholestero l: less than 200 mg/dLBorderline High Cholesterol: 200-239 mg/dLHigh Cholesterol: greater than 239 mg/dL LDL Cholesterol Calculated 67 <100 mg/dL [facility] Comment:Desirable LDL: less than 100 mg/dLNear Optimal/Above Optimal LDL: 110- 129 mg/dLBorderline High LDL: 130-159 mg/dLHigh LDL: 160-189 mg/dLVery High LDL: greater than or equal to 190 mg/dL HDL Cholesterol 53 >40 mg/dL [facility] Comment:Desirable HDL: great er than 40 mg/dL Note: This HDL assay may give artificially low results in patients with liver disease. Blood Venous blood specimen / Unknown 09/07/2024 10:18 AM EST 09/07/2024 11:22 AM EST us Agnes Christopher MD LAB BLOOD ORDERABLES Final Result [facility] [address] [place] [address] [phone] * Hepatitis C Antibody with Reflex to HCV, RNA, Quantitative, Real-Time PCR (12/05/2022 3:47 PM EST) Hepatitis C Antibody NON-REACT ANNIE NON-REACT ANNIE [facility] Diagnost Index 0.02 <1.00 [facility] [employer] Comment: HCV antibody was non-reactive. There is no laboratory evidence of HCV infection. In most cases, no further action is required. However, if recent HCV exposure is suspected, a test for HCV RNA (test code 27738) is suggested. For additional information please refer to http://education.[employer]/faq/RKA35n4 (This link is being provided for informational/ educational purposes only.) Blood Venous blood specimen / Unknown 12/05/2022 3:47 PM EST 12/05/2022 3:48 PM EST Narrative [facility] - 12/09/2022 2:40 PM EST FASTING:NO FASTING: NO Agnes Christopher MD LAB BLOOD ORDERABLES Final Result [address], [place] [address] [facility] [address] [facility], ([address]) [place] [address] * HIV-1/2 Antigen and Antibodies, Fourth Generation, with Reflexes (12/05/2022 3:47 PM EST) [facility] HIV Antigen/Antibody, 4th Generation NON-REAC TIVE NON-REAC TIVE [facility] Comment: HIV-1 antigen and HIV-1/HIV-2 antibodies were [...] purpose. For additional information please refer to http://education.[employer]/faq/VGP981 (This link is being provided for informational/ educational purposes only.) The performance of this assay has not been clinically validated in patients less than 2 years old. Blood Venous blood specimen / Unknown 12/05/2022 3:47 PM EST 12/05/2022 3:48 PM EST Narrative [facility] - 12/09/2022 2:40 PM EST FASTING:NO FASTING: NO Agnes Christopher MD LAB BLOOD ORDERABLES Final Result [address], [place] [address] [facility] [employer] [address] [facility], ([address]) [place] [address] from Last 3 Months or Most Recently Relevant to Health Maintenance Insurance [facility] 3 Advance Directives Documents on File Type Date Recorded Patient Operations Lead Expl anation Advance Directives and Living Will 05/12/2024 2:59 PM Health Care Proxy Care Teams Optical Instrument Inspector Relationship Specialty Start Date End Date Candi, MD Agnes [address] [place] [address] [phone] PCP - General Family Medicine 06/09/19 Elena Norris OD [address] [place] [phone] Optometry 11/10/24 Jazmine Moreno [address] [place] [address] Gastroenterology 04/01/25
--- OUTSIDE RECORDS SUMMARY | 2025-07-19 10:27 | XMS_ITS | Encounter Summary ---
Author Organization [employer] Address [address] [facility] 7t [place] [address] Care Team Providers Care Safe Deposit Clerk Name Role Phone Agnes Christopher MD Primary Care Provider +1- [phone] MyrnaElena OD Unavailable [phone] Jazmine Moreno Unavailable Reason for Visit * Reason Onset Date Comments Med Refill 05/13/2025 Encounter Details Date Type Department Care Team (Late st Contact Info) Description 05/13/2025 Refill [facility] [address] [place], [place] [phone] Agnes Christopher MD [address] [place], [place] [phone] Type 2 diabetes mellitus without complication, without long-term current use of insulin ([facility]) Social History Tobacco Use Types Packs/Day Years [...] the past 12 months, has t he [employer]rig[employer], gas, oil or water company threatened to [...] 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 Not on file documented as of this encounter Plan of Treatment Upcoming Encounters Date Type Department Care Team ([facility] st Contact Info) Description 07/26/2025 9:30 AM EDT Medication Management [facility] [address] [place] [address] Jenna Maradiaga, PharmD [address] [place] [address] 08/17/2025 10:30 AM EDT Office Visit [facility] [address] [place] [address] Agnes Christopher MD [address] [place] [address] documented as of this encounter Visit Diagnoses Diagnosis Type 2 diabetes mellitus without complication, without long-term current use of insulin ([facility]) documented in this encounter Additional Health Concerns Assessment Noted Time PHQ-9 Depression Total Score: 1 09/07/20 24 9:17 AM EST documented as of this encounter Care Teams Safe Deposit Clerk Relationship Specialty Start Date End Date Agnes Christopher MD [address] [place] [address] PCP - General Family Medicine 06/09/19 Elena Norris OD [address] [place] [address] Optometry 11/10/24 Jazmine Moreno [address] 3rd [place] [address] Gastroenterology 04/01/25 documented as of this encounter
--- OUTSIDE RECORDS SUMMARY | 2025-07-19 10:27 | XMS_ITS | Encounter Summary ---
Author Organization [employer] Address [address] [place] [address] 7 [place] [address] Care Team Providers Care Optimization Analyst Name Role Phone Agnes Christopher MD Primary Care Provider +- [phone] MyrnaElena OD Unavailable [phone] Jazmine Moreno Unavailable Reason for Visit * Reason Onset Date Comments Med Refill 06/01/2025 Encounter Details Date Type Department Care Team (Late st Contact Info) Description 06/01/2025 Refill [facility] 230 [place], [place] [phone] Agnes Christopher MD 230 [place], [place] [phone] Type 2 diabetes mellitus without complication, without long-term current use of insulin ([facility]) Social History Tobacco Use Types [...] the past 12 months, has t he [employer], gas, oil or water company threatened to [...] 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 Not on fi le Not on file documented as of this encounter Plan of Treatment Upcoming Encounters Date Type Department Care Team (Late st Contact Info) Description 07/26/2025 9:30 AM EDT Medication Management [facility] [address] [place] [address] Jenna Maradiaga, PharmD [address] [place] [address] 08/17/2025 10:30 AM EDT Office Visit [facility] [address] [place] [address] Agnes Christopher MD [address] [place] [address] documented as of this encounter Visit Diagnoses Diagnosis Type 2 diabetes mellitus without complication, without long-term current use of insulin ([facility]) documented in this encounter Additional Health Concerns Assessment Noted Time PHQ-9 Depression Total Score: 1 09/07/20 24 9:17 AM EST documented as of this encounter Care Teams Optimization Analyst Relationship Specialty Start Date End Date Agnes Christopher MD 230 [place] [address] PCP - General Family Medicine 06/09/19 Elena Norris OD [address] [place] [address] Optometry 11/10/24 Jazmine Moreno [address] 3rd [place] [address] Gastroenterology 04/01/25 documented as of this encounter
--- OUTSIDE RECORDS SUMMARY | 2025-07-19 10:27 | XMS_ITS | Encounter Summary ---
Author Organization [employer] Address [address] [place] [address] 7t [place] [address] Care Team Providers Care Shoulder Pad Molder Name Role Phone Agnes Christopher MD Primary Care Provider [phone]- [phone] MyrnaElena OD Unavailable [phone] Jazmine Moreno Unavailable Encounter Details Date Type Department Care Team ([facility] Contact Info) Description 06/19/2023 Orders Only [facility] 230 [place] [address] Agnes Christopher MD [address] [place], [place] [phone] Social History Tobacco Use Types Packs/Day Years [...] Upcoming Encounters Date Type Department Care Team ([facility] Contact Info) Description 07/26/2025 9:30 AM EDT Medication Management [facility] 230 [place] [address] Jenna Maradiaga, PharmD [address] [place] [address] 08/17/2025 10:30 AM EDT Office Visit [facility] [address] [place] [address] Agnes Christopher MD [address] [place] [address] documented as of this encounter Visit Diagnoses Not on filedocumented in this encounter Care Teams Shoulder Pad Molder Relationship Specialty Start Date End Date Agnes Christopher MD [address] [place] [address] PCP - General Family Medicine 06/09/19 Elena Norris OD [address] [place] [address] [phone] Optometry 11/10/24 Jazmine Moreno [address] [place] [address] Drive 3rd [place] [address] Gastroenterology 04/01/25 documented as of this encounter
--- OUTSIDE RECORDS SUMMARY | 2025-07-19 10:27 | XMS_ITS | Encounter Summary ---
Author Organization [employer] Address [address] [place] [address] 7 [place] [address] Care Team Providers Care Vocational Rehabilitation Technician Name Role Phone Agnes Christopher MD Primary Care Provider [phone]- [phone] MyrnaElena OD Unavailable [phone] Jazmine Moreno Unavailable Encounter Details Date Type Department Care Team (Late Contact Info) Description 09/27/2024 Orders Only [facility] [address] [place] [address] [phone] Agnes Christopher MD [address] [place] [address] [phone] Social History Tobacco Use Types Packs/Day Years [...] Description 07/26/2025 9:30 AM EDT Medication Management [facility] [address] [place] [address] Jenna Maradiaga, JuneD 230 [place] [address] 08/17/2025 10:30 AM EDT Office Visit [facility] [address] [place] [address] Agnes Christopher MD 230 [place] [address] documented as of this encounter Visit Diagnoses Not on filedocumented in this encounter Additional Health Concerns Assessment Noted Time PHQ-9 Depression Total Score: 1 09/07/20 24 9:17 AM EST documented as of this encounter Care Teams Vocational Rehabilitation Technician Relationship Specialty Start Date End Date Agnes Christopher MD [address] [place] [address] [phone] PCP - General Family Medicine 06/09/19 Elena Norris OD [address] [place] [address] Optometry 11/10/24 Jazmine Moreno [address] [place] [address] 3rd [place] [address] Gastroenterology 04/01/25 documented as of this encounter
--- OUTSIDE RECORDS SUMMARY | 2025-07-19 10:27 | XMS_ITS | Encounter Summary ---
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 on fi le Not on file documented as of this encounter Plan of Treatment Upcoming Encounters Date Type Department Care Team (Late st Contact Info) Description 07/26/2025 9:30 AM EDT Medication Management [facility] MEDICINE [address] [place] [address] Jenna Maradiaga, PharmD 230 [place] [address] 08/17/2025 10:30 AM EDT Office Visit [facility]INE [address] [place] [address] Agnes Christopher MD 230 [place] [address] documented as of this encounter Procedures Procedure [...] documented as of this encounter Care Teams Gambling Supervisor Relationship Specialty Start Date End Date Agnes Christopher MD [address] [place] [address] PCP - General Family Medicine 06/09/19 Elena Norris OD [address] [place] [address] Optometry 11/10/24 Jazmine Moreno [address] [place] [address] 3rd [place] [address] Gastroenterology 04/01/25 documented as of this encounter
--- OUTSIDE RECORDS SUMMARY | 2025-07-19 10:27 | XMS_ITS | Encounter Summary ---
Author Organization [employer] Address [address] [place] [address] 7t [place] [address] Care Team Providers Care Synthetic Chemist Name Role Phone Agnes Christopher MD Primary Care Provider [phone]- [phone] MyrnaElena OD Unavailable [phone] Jazmine Moreno Unavailable Encounter Details Date Type Department Care Team (Late st Contact Info) Description 03/31/2025 Orders Only [facility] [address] [place], [place] [phone] Agnes Christopher MD 230 [place], [place] [phone] Gastroesophageal reflux disease, unspecified whether esophagitis present [...] 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 Not on fi le Not on file documented as of this encounter Plan of Treatment Upcoming Encounters Date Type Department Care Team (Late st Contact Info) Description 07/26/2025 9:30 AM EDT Medication Management [facility] MEDICINE [address] [place] [address] Jenna Maradiaga, JuneD 230 [place] [address] 08/17/2025 10:30 AM EDT Office Visit [facility] MED[facility] [address] [place] [address] Agnes Christopher MD [address] [place] [address] documented as of this encounter Visit Diagnoses Diagnosis Gastroesophageal reflux disease, unspecified whether esophagitis present- Primary documented in this encounter Additional Health Concerns Assessment Noted Time PHQ-9 Depression Total Score: 1 09/07/20 24 9:17 AM EST documented as of this encounter Care Teams Synthetic Chemist Relationship Specialty Start Date End Date Agnes Christopher MD 230 [place] [address] PCP - General Family Medicine 06/09/19 Elena Norris OD [address] [place] [address] Optometry 11/10/24 Jazmine Moreno [address] 3rd [place] [address] Gastroenterology 04/01/25 documented as of this encounter
--- OUTSIDE RECORDS SUMMARY | 2025-07-19 10:27 | XMS_ITS | Encounter Summary ---
Author Organization [employer] Address [address] [place] [address] 7 [place] [address] Care Team Providers Care Compensation Intern Name Role Phone Agnes Christopher MD Primary Care Provider [phone]- [phone] MyrnaElena OD Unavailable [phone] TiffanieJazmine guerrier Unavailable Reason for Visit * Reason Onset Date Comments Med Refill 01/24/2025 Encounter Details Date Type Department Care Team (Late st Contact Info) Description 01/24/2025 Refill [facility] 230 [place], [place] [phone] Agnes Christopher MD 230 [place], [place] [phone] Primary ovarian failure Social History Tobacco Use [...] 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 Not on fi le Not on file documented as of this encounter Plan of Treatment Upcoming Encounters Date Type Department Care Team (Late st Contact Info) Description 07/26/2025 9:30 AM EDT Medication Management [facility] [address] [place] [address] Jenna Maradiaga, JuneD [address] [place] [address] 08/17/2025 10:30 AM EDT Office Visit [facility] [address] [place] [address] Agnes Christopher MD [address] [place] [address] documented as of this encounter Visit Diagnoses Diagnosis Primary ovarian failure Other ovarian failure documented in this encounter Additional Health Concerns Assessment Noted Time PHQ-9 Depression Total Score: 1 09/07/20 24 9:17 AM EST documented as of this encounter Care Teams Compensation Intern Relationship Specialty Start Date End Date Agnes Christopher MD [address] [place] [address] PCP - General Family Medicine 06/09/19 Elena Norris OD [address] [place] [address] Optometry 11/10/24 Jazmine Moreno [address] 3rd [place] [address] Gastroenterology 04/01/25 documented as of this encounter
--- OUTSIDE RECORDS SUMMARY | 2025-07-19 10:27 | XMS_ITS | Encounter Summary ---
Author Organization [employer] Address 75 [facility] 7 [place] [address] Care Team Providers Care Rag Room Supervisor Name Role Phone Agnes Christopher MD Primary Care Provider [phone]- [phone] MyrnaElena OD Unavailable [phone] TiffanieJazmine guerrier Unavailable Reason for Visit * Reason Onset Date Comments Med Refill 06/07/2025 Encounter Details Date Type Department Care Team (Late st Contact Info) Description 06/07/2025 Refill [facility] 230 [place], [place] [phone] Agnes Christopher MD 230 [place], [place] [phone] Vitamin D deficiency Social History Tobacco Use [...] 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 on fi le Not on file documented as of this encounter Plan of Treatment Upcoming Encounters Date Type Department Care Team (Late st Contact Info) Description 07/26/2025 9:30 AM EDT Medication Management [facility] [address] [place] [address] Jenna Maradiaga, PharmD [address] [place] [address] 08/17/2025 10:30 AM EDT Office Visit [facility] [address] [place] [address] Agnes Christopher MD [address] [place] [address] documented as of this encounter Visit Diagnoses Diagnosis Vitamin D deficiency documented in this encounter Additional Health Concerns Assessment Noted Time PHQ-9 Depression Total Score: 1 09/07/20 24 9:17 AM EST documented as of this encounter Care Teams Rag Room Supervisor Relationship Specialty Start Date End Date Agnes Christopher MD 230 [place] [address] PCP - General Family Medicine 06/09/19 Elena Norris OD [address] [place] [address] Optometry 11/10/[address] 3rd [place] [address] Gastroenterology 04/01/25 documented as of this encounter
--- OUTSIDE RECORDS SUMMARY | 2025-07-19 10:27 | XMS_ITS | Encounter Summary ---
Author Organization [employer] Address [address] [place] [address] 7t [place] [address] Care Team Providers Care Development Spec Name Role Phone Agnes Christopher MD Primary Care Provider +1- [phone] MyrnaElena OD Unavailable [phone] TiffanieJazmine guerrier Unavailable Reason for Visit * Reason Comments Med Refill Encounter Details Date Type Department Care Team ([facility] st Contact Info) Description 03/17/2024 Refill [facility] PEDS [address] [place], [place] [phone] Rui Villegas MD [address] [place] [address] [phone] Social History Tobacco Use Types Packs/Day Years [...] Description 07/26/2025 9:30 AM EDT Medication Management [address] [address] Jenna Maradiaga PharmD [address] [place] [address] 08/17/2025 10:30 AM EDT Office Visit [facility] MEDICINE [address] [place] [address] Agnes Christopher MD [address] [place] [address] documented as of this encounter Visit Diagnoses Not on filedocumented in this encounter Care Teams Development Spec Relationship Specialty Start Date End Date Agnes Christopher MD [address] [place] [address] PCP - General Family Medicine 06/09/19 Elena Norris OD [address] [place] [address] Optometry 11/10/24 Jazmine Moreno [address] [place] [address] 3rd [place] [address] Gastroenterology 04/01/25 documented as of this encounter
--- OUTSIDE RECORDS SUMMARY | 2025-07-19 10:27 | XMS_ITS | Encounter Summary ---
Author Organization [employer] Address [address] [place] [address] 7 [place] [address] Care Team Providers Care Elevator Installer Apprentice Name Role Phone Agnes Christopher MD Primary Care Provider +1- [phone] Myrna Elean OD Unavailable [phone] Jazmine Moreno Unavailable Encounter Details Date Type Department Care Team (Late Contact Info) Description 06/25/2023 Orders Only [facility] MEDICINE [address] [place] [address] [phone] Agnes Christopher MD 230 [place], [place] [phone] Type 2 diabetes mellitus without complication, unspecified whether lobsterman insulin use ([facility]) (Primary Dx); Bilateral deafness Social [...] Management [facility] MEDICINE [address] [place] [address] Jenna Maradiaga, JuneD [address] [place] [address] 08/17/2025 10:30 AM EDT Office Visit [facility] MED[facility]INE [address] [place] [address] Agnes Christopher MD 230 [place] [address] documented as of this encounter Visit Diagnoses Diagnosis Type 2 diabetes mellitus without complication, unspecified whether lobsterman insulin use ([facility])- Primary Bilateral deafness Unspecified hearing loss documented in this encounter Care Teams Elevator Installer Apprentice Relationship Specialty Start Date End Date Agnes Christopher MD 230 [place], [place] [phone] PCP - General Family Medicine 06/09/19 Elena Norris OD [address] [place] [address] [phone] Optometry 11/10/24 Jazmine Moreno [address] 3rd [place] [address] Gastroenterology 04/01/25 documented as of this encounter
== END 2025-07-19 08:39 | disposition home or self-care (01) ==
LOC: HO.XRAY 08:38
PROVIDERS: PCP Family Medicine; Visit Provider Nurse Practitioner Family
DX: K21.9 Gastro-esophageal reflux disease without esophagitis (principal)
CPT/HCPCS: 74246

== ENCOUNTER → 2025-07-19 08:45 | Outpatient (BNV) | payer OTHER, SELFPAY | PROVIDERS: PCP Family Medicine; Visit Provider Radiology Diagnostic Radiology | DX: K21.9 Gastro-esophageal reflux disease without esophagitis (principal) | CPT/HCPCS: 74246 ==

== ENCOUNTER 2025-08-17 11:22 | Outpatient (REF) | payer OTHER, SELFPAY ==
[2025-08-17 14:36] LABS: Microalbum/Creatinine Ratio Ur 3.0 ug/mg cr (<30)
== END 2025-08-17 11:23 | disposition home or self-care (01) ==
LOC: HO.HHCL 11:22
PROVIDERS: PCP Family Medicine; Visit Provider Family Medicine
DX: E11.9 Type 2 diabetes mellitus without complications (principal)
CPT/HCPCS: 82043; 82570

== ENCOUNTER 2025-09-06 10:44 | Outpatient (REF) | payer OTHER, SELFPAY ==
--- NOTE | ~2025-09-06 | US_ITS ---
EXAMINATION(S): 1. MM DIAGNOSTIC DIGITAL BREAST TOMOSYNTHESIS, BILATERAL 2. Targeted ultrasound of the right breast 3. Targeted ultrasound of the left breast CLINICAL INFORMATION: According to requisition: Prominent bilateral nipples, on estrogen and progesterone. Bilateral nipple pain. According to patient: Patient denies bilateral pain. However, right breast discomfort/lump. COMPARISON: February 06, 2021 TECHNIQUE: Digital breast tomosynthesis is performed in both the mediolateral oblique and craniocaudal views along with computer-aided detection (CAD). Synthesized 2D images are generated from the tomosynthesis. A skin BB marker is placed at the location of the palpable concern as indicated by the patient in the right breast. FINDINGS: BREAST COMPOSITION: There are scattered areas of fibroglandular density. RIGHT BREAST: Subareolar density is more prominent than 2020; this is more prominent than contralateral left side. No significant masses, suspicious calcifications or other abnormalities are seen. In particular, no suspicious mammographic findings adjacent to the skin BB marker placed in the lower inner quadrant. Targeted ultrasound of the right breast was performed at the following locations: -Nipple pain as indicated by the requisition. Normal sonographic appearance on the nipple area. The survey of subareolar/retroareolar region shows heterogeneous ill-defined area, more prominent than the left side. -Right lump as indicated by the patient. The survey centered along the 1:00-2:00 axis at the areola did not reveal suspicious sonographic findings. LEFT BREAST: Subareolar density, more prominent than in 2020. No significant masses, suspicious calcifications or other abnormalities are seen. Targeted ultrasound of the left breast was performed at the location of the nipple pain per requisition. Normal sonographic appearance of the nipple area. The survey of subareolar/retroareolar region shows heterogeneous ill-defined area, less prominent than contralateral right side. US/US Breast BI Limited Mamm Only IMPRESSION: BILATERAL BREASTS: -Prominent subareolar density/heterogeneous sonographic area, right greater than left, more prominent than 2020, but without definite suspicious findings. Benign, no evidence of malignancy. Clinical follow-up is recommended. Otherwise, normal interval follow-up mammogram is recommended in 12 months. -No suspicious findings to accounts for the palpable concern in the right breast. Clinical follow-up recommended, independent of imaging findings. ASSESSMENT: BI-RADS: Category 2: Benign RECOMMENDATION: 1. Patient should be managed based on the clinical impression. 2. Otherwise, routine annual screening mammography. Results were provided to the patient at time of visit by the technologist. This patient's information was entered into a reminder system with a target due date for their next mammogram. Electronically signed by: Romario Baca MD 09/06/2025 12:43 PM YESSY
--- OUTSIDE RECORDS SUMMARY | 2025-09-06 12:48 | XMS_ITS | Encounter Summary ---
Author Organization [employer] Address [address] [place] [address] 7 [place] [address] Care Team Providers Care Plate Developer Name Role Phone Agnes Christopher MD Primary Care Provider Elena Norris OD Unavailable [phone] TiffanieStephon guerriera Unavailable Jenna Maradiaga PharmD Unavailable Encounter Details Date Type Department Care Team (Late st Contact Info) Description 09/27/2024 Orders Only [facility] 230 [place], [place] [phone] Agnes Christopher MD [address] [place], [place] [phone] Social History Tobacco Use Types Packs/Day Years [...] Care Team (Late st Contact Info) Description 09/20/2025 10:00 AM EST Medication Management [facility] 230 [place] [address] Jenna Maradiaga, Adelina [address] [place] [address] documented as of this encounter Visit Diagnoses Not on filedocumented in this encounter Additional Health Concerns Assessment Noted Time PHQ-9 Depression Total Score: 1 09/07/20 24 9:17 AM EST documented as of this encounter Care Teams Plate Developer Relationship Specialty Start Date End Date Agnes Christopher MD [address] [place] [address] PCP - General Family Medicine 06/09/19 Elena Norris OD [address] [place] [address] Optometry 11/10/24 Jazmine Moreno [address] 3rd [place] [address] Gastroenterology 04/01/25 Jenna Maradiaga, Adelina [address] [place] [address] Pharmacist Pharmacy 07/26/25 documented as of this encounter
--- OUTSIDE RECORDS SUMMARY | 2025-09-06 12:48 | XMS_ITS | Encounter Summary ---
Author Organization [employer] Address [address] [place] [address] 7t [place] [address] Care Team Providers Care Industrial Relations Commissioner Name Role Phone Agnes Christopher MD Primary Care Provider [phone] Elena Norris OD Unavailable [phone] Jazmine Moreno Unavailable Jenna Maradiaga PharmD Unavailable Encounter Details Date Type Department Care Team (Late st Contact Info) Description 05/21/2024 Orders Only [facility] [address] [place] [address] [phone] Agnes Christopher MD [address] [place], [place] [phone] Bacterial vaginosis (Primary Dx) Social History Tobacco [...] Description 09/20/2025 10:00 AM EST Medication Management [facility] 230 [place] [address] Jenna Maradiaga, PharmD [address] [place] [address] documented as of this encounter Visit Diagnoses Diagnosis Bacterial vaginosis- Primary Unspecified vaginitis and vulvovaginitis documented in this encounter Care Teams Industrial Relations Commissioner Relationship Specialty Start Date End Date Agnes Christopher MD [address] [place] [address] PCP - General Family Medicine 06/09/19 Elena Norris OD [address] [place] [address] Optometry 11/10/24 Jazmine Moreno [address] [place] [address] 3rd [place] [address] Gastroenterology 04/01/25 Jenna Maradiaga, JuneD [address] [place] [address] Pharmacist Pharmacy 07/26/25 documented as of this encounter
--- OUTSIDE RECORDS SUMMARY | 2025-09-06 12:48 | XMS_ITS | Encounter Summary ---
Author Organization [employer] Address [address] [place] [address] 7 [place] [address] Care Team Providers Care Community Aide Name Role Phone Agnes Christopher MD Primary Care Provider Elena Norris OD Unavailable [phone] TiffanieJazmine guerrier Unavailable Jenna Maradiaga PharmD Unavailable Reason for Visit * Reason Onset Date Comments Med Refill 06/01/2025 Encounter Details Date Type Department Care Team (Late st Contact Info) Description 06/01/[address] [facility] 230 [place], [place] [phone] Agnse Christopher MD [address] [place], [place] [phone] Type 2 diabetes mellitus without complication, without long-term current use of insulin (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 MED[facility] [address] [place] [address] Jenna Maradiaga, PharmD 230 [place] [address] documented as of this encounter Visit Diagnoses Diagnosis Type 2 diabetes mellitus without complication, without long-term current use of insulin (HCC) documented in this encounter Additional Health Concerns Assessment Noted Time PHQ-9 Depression Total Score: 1 09/07/20 24 9:17 AM EST documented as of this encounter Care Teams Community Aide Relationship Specialty Start Date End Date Agnes Christopher MD [address] [place] [address] PCP - General Family Medicine 06/09/19 Elena Norris OD [address] [place], [place] [phone] Optometry 11/10/24 Jazmine Moreno [address] 3rd [place] [address] Gastroenterology 04/01/25 Jenna Maradiaga, JuneD 230 [place] [address] Pharmacist Pharmacy 07/26/25 documented as of this encounter
--- OUTSIDE RECORDS SUMMARY | 2025-09-06 12:48 | XMS_ITS | Encounter Summary ---
Author Organization [employer] Address [address] [place] [address] 7t [place] [address] Care Team Providers Care Plant Controller Name Role Phone Agnes Christopher MD Primary Care Provider [phone] Elena Norris OD Unavailable [phone] TiffanieJazmine guerrier Unavailable Jenna Maradiaga PharmD Unavailable Encounter Details Date Type Department Care Team (Late st Contact Info) Description 06/19/2023 Orders Only [facility] [address] [place], [place] [phone] Agnes Christopher MD [address] [place], [place] [phone] Social History Tobacco Use Types Packs/Day Years [...] Description 09/20/2025 10:00 AM EST Medication Management [facility] [address] [place] [address] Jenna Maradiaga, PharmD [address] [place] [address] documented as of this encounter Visit Diagnoses Not on filedocumented in this encounter Care Teams Plant Controller Relationship Specialty Start Date End Date Agnes Christopher MD [address] [place] [address] PCP - General Family Medicine 06/09/19 Elena Norris OD [address] [place] [address] Optometry 11/10/24 Jazmine Moreno [address] [place] [address] 3rd [place] [address] Gastroenterology 04/01/25 Jenna Maradiaga PharmD [address] [place] [address] Pharmacist Pharmacy 07/26/25 documented as of this encounter
--- OUTSIDE RECORDS SUMMARY | 2025-09-06 12:48 | XMS_ITS | Encounter Summary ---
Author Organization [employer] Address [address] [place] [address] 7 [place] [address] Care Team Providers Care Zinc Plater Name Role Phone Agnes Christopher MD Primary Care Provider Elena Norris OD Unavailable [phone] TiffanieJazmine guerrier Unavailable Jenna Maradiaga PharmD Unavailable Encounter Details Date Type Department Care Team (Late st Contact Info) Description 06/25/2023 Orders Only [facility] MEDICINE [address] [place] [address] [phone] Agnes Christopher MD [address] [place] [address] [phone] Type 2 diabetes mellitus without complication, unspecified whether retail customer service specialist insulin use ([facility]) (Primary Dx); Bilateral deafness Social History Tobacco [...] Description 09/20/2025 10:00 AM EST Medication Management [facility] MED[facility] [address] [place] [address] Jenna Maradiaga, PharmD [address] [place] [address] documented as of this encounter Visit Diagnoses Diagnosis Type 2 diabetes mellitus without complication, unspecified whether senior living insulin use- Primary Bilateral deafness Unspecified hearing loss documented in this encounter Care Teams Zinc Plater Relationship Specialty Start Date End Date Agnes Christopher MD [address] [place] [address] PCP - General Family Medicine 06/09/19 Elena Norris OD [address] [place] [address] Optometry 11/10/24 Jazmine Moreno [address] [place] [address] Drive 3rd [place] [address] Gastroenterology 04/01/25 Jenna Maradiaga, PharmD [address] [place] [address] Pharmacist Pharmacy 07/26/25 documented as of this encounter
--- OUTSIDE RECORDS SUMMARY | 2025-09-06 12:48 | XMS_ITS | Encounter Summary ---
Author Organization [employer] Address [address] [place] [address] 7 [place] [address] Care Team Providers Care Manager Sign Name Role Phone Agnes Christopher MD Primary Care Provider Elena Norris OD Unavailable [phone] TiffanieStephon guerriera Unavailable Jenna Maradiaga PharmD Unavailable Encounter Details Date Type Department Care Team (Late st Contact Info) Description 12/10/2022 Orders Only [facility] 230 [place], [place] [phone] Agnes Christopher MD 230 [place], [place] [phone] Social History Tobacco Use Types Packs/Day Years [...] Department Care Team (Late Contact Info) Description 09/20/2025 10:00 AM EST Medication Management [facility] 230 [place] [address] Jenna Maradiaga, Adelina 230 [place] [address] documented as of this encounter Visit Diagnoses Not on filedocumented in this encounter Care Teams Manager Sign Relationship Specialty Start Date End Date Agnes Christopher MD [address] [place] [address] PCP - General Family Medicine 06/09/19 Elena Norris OD [address] [place] [address] [phone] Optometry 11/10/[address] 3rd [place] [address] Gastroenterology 04/01/25 Jenna Maradiaga, PharmD [address] [place] [address] Pharmacist Pharmacy 07/26/25 documented as of this encounter
--- OUTSIDE RECORDS SUMMARY | 2025-09-06 12:48 | XMS_ITS | Encounter Summary ---
Author Organization [employer] Address [address] [place] [address] 7 [place] [address] Care Team Providers Care B Operator Name Role Phone Agnes Christopher MD Primary Care Provider Elena Norris OD Unavailable [phone] TiffanieJazmine guerrier Unavailable Jenna Maradiaga PharmD Unavailable Reason for Visit * Reason Onset Date Comments Med Refill 06/01/2025 Encounter Details Date Type Department Care Team (Late st Contact Info) Description 06/01/2025 Refill [facility] MED[facility] 230 [place], [place] [phone] Agnes Christopher MD 230 [place], [place] [phone] Primary ovarian failure Social History Tobacco Use [...] Date 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 Not on fi le Not on file documented as of this encounter Plan of Treatment Upcoming Encounters Date Type Department Care Team (Late st Contact Info) Description 09/20/2025 10:00 AM EST Medication Management [facility] MED[facility]INE 230 [place] [address] Jenna Maradiaga, PharmD 230 [place] [address] documented as of this encounter Visit Diagnoses Diagnosis Primary ovarian failure Other ovarian failure documented in this encounter Additional Health Concerns Assessment Noted Time PHQ-9 Depression Total Score: 1 09/07/20 24 9:17 AM EST documented as of this encounter Care Teams B Operator Relationship Specialty Start Date End Date Agnes Christopher MD 230 [place] [address] PCP - General Family Medicine 06/09/19 Elena Norris OD [address] [place] [address] Optometry 11/10/24 Jazmine Moreno [address] [place] [address] 3rd [place] [address] Gastroenterology 04/01/25 Jenna Maradiaga, Adelina 230 [place] [address] Pharmacist Pharmacy 07/26/25 documented as of this encounter
--- OUTSIDE RECORDS SUMMARY | 2025-09-06 12:48 | XMS_ITS | Encounter Summary ---
Author Organization [employer] Address [address] [place] [address] 7 [place] [address] Care Team Providers Care Outside Plant Technician Name Role Phone Agnes Christopher MD Primary Care Provider Elena Norris OD Unavailable [phone] TiffanieStephon guerriera Unavailable Jenna Maradiaga PharmD Unavailable Reason for Visit * Reason Onset Date Comments Med Refill 01/24/2025 Encounter Details Date Type Department Care Team (Late st Contact Info) Description 01/24/2025 Refill [facility] MED[facility] 230 [place], [place] [phone] Agnes Christopher MD 230 [place], [place] [phone] Primary ovarian failure Social History Tobacco Use [...] Date Job End 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 on file Not on fi le Not on file documented as of this encounter Plan of Treatment Upcoming Encounters Date Type Department Care Team (Late st Contact Info) Description 09/20/2025 10:00 AM EST Medication Management [facility] MEDICINE 230 [place] [address] Jenna Maradiaga, JuneD 230 [place] [address] documented as of this encounter Visit Diagnoses Diagnosis Primary ovarian failure Other ovarian failure documented in this encounter Additional Health Concerns Assessment Noted Time PHQ-9 Depression Total Score: 1 09/07/20 24 9:17 AM EST documented as of this encounter Care Teams Outside Plant Technician Relationship Specialty Start Date End Date Agnes Christopher MD [address] [place] [address] PCP - General Family Medicine 06/09/19 Elena Norris OD [address] [place] [address] Optometry 11/10/24 Jazmine Moreno [address] [place] [address] Drive 3rd [place] [address] Gastroenterology 04/01/25 Jenna Maradiaga, PharmD [address] [place] [address] Pharmacist Pharmacy 07/26/25 documented as of this encounter
--- OUTSIDE RECORDS SUMMARY | 2025-09-06 12:48 | XMS_ITS | Encounter Summary ---
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 on file Not on fi le Not on file documented as of this encounter Plan of Treatment Upcoming Encounters Date Type Department Care Team (Late st Contact Info) Description 09/20/2025 10:00 AM EST Medication Management [facility] MEDICINE 230 [place] [address] Jenna Maradiaga PharmD 230 [place] [address] documented as of this encounter Procedures Procedure [...] documented as of this encounter Care Teams Commercial Solar Sales Consultant Relationship Specialty Start Date End Date Agnes Christopher MD 230 [place] [address] PCP - General Family Medicine 06/09/19 Elena Norris OD [address] [place] [address] Optometry 11/10/24 Jazmine Moreno [address] [place] [address] Drive 3rd [place] [address] Gastroenterology 04/01/25 Jenna Maradiaga, Adelina 230 [place] [address] Pharmacist Pharmacy 07/26/25 documented as of this encounter
--- OUTSIDE RECORDS SUMMARY | 2025-09-06 12:48 | XMS_ITS | Encounter Summary ---
Author Organization [employer] Address [address] [place] [address] 7 [place] [address] Care Team Providers Care Airfield Engineer Officer Name Role Phone Agnes Christopher MD Primary Care Provider Elena Norris OD Unavailable [phone] TiffanieJazmine guerirer Unavailable Jenna Maradiaga PharmD Unavailable Reason for Visit * Reason Onset Date Comments Med Refill 05/13/2025 Encounter Details Date Type Department Care Team (Late st Contact Info) Description 05/13/2025 Refill [facility] MEDICINE 230 [place], [place] [phone] Agnes Christopher MD 230 [place], [place] [phone] Type 2 diabetes mellitus without complication, unspecified whether ocean transportation intermediary insulin use ([facility]) Social History Tobacco Use Types Packs/Day [...] Date 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 Not on fi le Not on file documented as of this encounter Plan of Treatment Upcoming Encounters Date Type Department Care Team ([facility] st Contact Info) Description 09/20/2025 10:00 AM EST Medication Management [facility] MEDICINE 230 [place] [address] Jenna Maradiaga, PharmD 230 [place] [address] documented as of this encounter Visit Diagnoses Diagnosis Type 2 diabetes mellitus without complication, unspecified whether intermediate insulin use documented in this encounter Additional Health Concerns Assessment Noted Time PHQ-9 Depression Total Score: 1 09/07/20 24 9:17 AM EST documented as of this encounter Care Teams Airfield Engineer Officer Relationship Specialty Start Date End Date Agnes Christopher MD 230 [place] [address] PCP - General Family Medicine 06/09/19 Elena Norris OD [address] [place] [address] Optometry 11/10/24 Jazmine Moreno [address] 3rd [place] [address] Gastroenterology 04/01/25 Jenna Maradiaga, JuneD 230 [place] [address] Pharmacist Pharmacy 07/26/25 documented as of this encounter
--- OUTSIDE RECORDS SUMMARY | 2025-09-06 12:48 | XMS_ITS | Encounter Summary ---
Author Organization [facility] [facility] Address [address] [place] [address] 7 [place] [address] Care Team Providers Care Lot Attendant Name Role Phone Agnes Christopher MD Primary Care Provider [phone] Elena Norris OD Unavailable [phone] TiffanieJazmine guerrier Unavailable Jenna Maradiaga PharmD Unavailable Encounter Details Date Type Department Care Team (Latest Contact Info) Description 09/24/2019 Abstract [facility] CONVERSIONS Dental, Provider, DDS Social History [...] Description 09/20/2025 10:00 AM EST Medication Management [facility] MEDICINE 230 [place], [place] [phone] Jenna Maradiaga PharmD [address] [place] [address] documented as of this encounter Visit Diagnoses Not on filedocumented in this encounter Care Teams Lot Attendant Relationship Specialty Start Date End Date Agnes Christopher MD 230 [place] [address] PCP - General Family Medicine 06/09/19 Elena Norris OD [address] [place] [address] Optometry 11/10/[address] 3rd [place] [address] Gastroenterology 04/01/25 Jenna Maradiaga, Adelina 230 [place] [address] Pharmacist Pharmacy 07/26/25 documented as of this encounter
--- OUTSIDE RECORDS SUMMARY | 2025-09-06 12:48 | XMS_ITS | Encounter Summary ---
Author Organization [employer] Address [address] [facility] 7 [place] [address] Care Team Providers Care Event Specialist Name Role Phone Agnes Christopher MD Primary Care Provider Elena Norris OD Unavailable [phone] TiffanieJazmine guerrier Unavailable Jenna Maradiaga PharmD Unavailable Reason for Visit * Reason Onset Date Comments Med Refill 05/13/2025 Encounter Details Date Type Department Care Team (Late st Contact Info) Description 05/13/2025 Refill [facility] 230 [place], [place] [phone] Agnes Christopher MD 230 [place], [place] [phone] Type 2 diabetes mellitus without complication, without long-term current use of insulin ([facility]) Social History Tobacco Use Types Packs/Day [...] 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 fi le Not on file documented as of this encounter Plan of Treatment Upcoming Encounters Date Type Department Care Team ([facility] st Contact Info) Description 09/20/2025 10:00 AM EST Medication Management [facility] MEDICINE 230 [place] [address] Jenna Maradiaga, PharmD 230 [place] [address] documented as of this encounter Visit Diagnoses Diagnosis Type 2 diabetes mellitus without complication, without long-term current use of insulin (HCC) documented in this encounter Additional Health Concerns Assessment Noted Time PHQ-9 Depression Total Score: 1 09/07/20 24 9:17 AM EST documented as of this encounter Care Teams Event Specialist Relationship Specialty Start Date End Date Agnes Christopher MD 230 [place] [address] PCP - General Family Medicine 06/09/19 Elena Norris OD [address] [place], [place] [phone] Optometry 11/10/24 Jazmine Moreno [address] 3rd [place] [address] Gastroenterology 04/01/25 Jenna Maradiaga, JuneD 230 [place] [address] Pharmacist Pharmacy 07/26/25 documented as of this encounter
--- OUTSIDE RECORDS SUMMARY | 2025-09-06 12:48 | XMS_ITS | Encounter Summary ---
Author Organization [employer] Address [address] [place] [address] 7 [place] [address] Care Team Providers Care Osteologist Name Role Phone Agnes Christopher MD Primary Care Provider Elena Norris OD Unavailable [phone] TiffanieStephon guerriera Unavailable Jenna Maradiaga PharmD Unavailable Reason for Referral * Consultation (Routine) - Closed Specialty Diagnoses / Procedures Referred By Jailene south Referred To Contact Gastroenterology Diagnoses Epigastric pain Agnes Christopher MD [address] [place] [address] Phone: tel: fax: [facility] Referral ID Status Reason Start Date Expiration Date V isits Requested Visits Authorized [id number] Closed Specialty Services Required 12/06/2024 12/06/2025 1 1 Encounter Details Date Type Department Care Team (Late st Contact Info) Description 12/06/2024 Orders Only [facility] MEDICINE 230 [place] [address] Agnes Christopher MD [address] [place] [address] Epigastric pain (Primary Dx); Generalized [...] 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 on fi le Not on file documented as of this encounter Plan of Treatment Upcoming Encounters Date Type Department Care Team (Late st Contact Info) Description 09/20/2025 10:00 AM EST Medication Management [facility] MED[facility] 230 [place] [address] Jenna Maradiaga, PharmD [address] [place] [address] Scheduled Referrals Name Type Priority Associated Diagnoses [...] documented as of this encounter Care Teams Osteologist Relationship Specialty Start Date End Date Agnes Christopher MD [address] [place] [address] PCP - General Family Medicine 06/09/19 Elena Norris OD [address] [place] [address] [phone] Optometry 11/10/24 Jazmine Moreno [address] [facility] [address] 3rd [place] [address] Gastroenterology 04/01/25 Jenna Maradiaga, PharmD [address] [place] [address] Pharmacist Pharmacy 07/26/25 documented as of this encounter
--- OUTSIDE RECORDS SUMMARY | 2025-09-06 12:49 | XMS_ITS | Encounter Summary ---
Author Organization [employer] Address [address] [facility] 7t [place] [address] Care Team Providers Care Tube Station Attendant Name Role Phone Agnes Christopher MD Primary Care Provider Elena Norris OD Unavailable [phone] TiffanieJazmine guerrier Unavailable Jenna Maradiaga PharmD Unavailable Encounter Details Date Type Department Care Team (Late st Contact Info) Description 03/31/2025 Orders Only [facility] W[facility] 230 [place], [place] [phone] Agnes Christopher MD 230 [place], [place] [phone] Gastroesophageal reflux disease, unspecified whether esophagitis present [...] 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 Not on fi le Not on file documented as of this encounter Plan of Treatment Upcoming Encounters Date Type Department Care Team (Late st Contact Info) Description 09/20/2025 10:00 AM EST Medication Management [facility] MEDICINE 230 [place] [address] Jenna Maradiaga, Adelina 230 [place] [address] documented as of this encounter Visit Diagnoses Diagnosis Gastroesophageal reflux disease, unspecified whether esophagitis present- Primary documented in this encounter Additional Health Concerns Assessment Noted Time PHQ-9 Depression Total Score: 1 09/07/20 24 9:17 AM EST documented as of this encounter Care Teams Tube Station Attendant Relationship Specialty Start Date End Date Agnes Christopher MD 230 [place] [address] PCP - General Family Medicine 06/09/19 Elena Norris OD [address] [place] [address] Optometry 11/10/24 Jazmine Moreno [address] [facility] 3rd [place] [address] Gastroenterology 04/01/25 Jenna Maradiaga, Adelina [address] [place] [address] Pharmacist Pharmacy 07/26/25 documented as of this encounter
--- OUTSIDE RECORDS SUMMARY | 2025-09-06 12:49 | XMS_ITS | Encounter Summary ---
Author Organization [facility] [employer] Address [address] [place] [address] [address] [place] [address] Care Team Providers Care Frame Nailer Name Role Phone Agnes Christopher MD Primary Care Provider Elena Norris OD Unavailable [phone] TiffanieJazmine guerrier Unavailable Jenna Maradiaga PharmD Unavailable [phone] Reason for Visit * Reason Onset Date Comments Med Refill 06/07/2025 Encounter Details Date Type Department Care Team (Late st Contact Info) Description 06/07/2025 Refill [facility] [address] [place], [place] [id number] Agnes Christopher MD [address] [place], [place] [id number] Vitamin D deficiency Social History Tobacco Use [...] Date 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 Not on fi le Not on file documented as of this encounter Plan of Treatment Upcoming Encounters Date Type Department Care Team (Late st Contact Info) Description 09/20/2025 10:00 AM EST Medication Management [facility] [address] [place] [address] Jenna Maradiaga, PharmD [address] [place] [address] documented as of this encounter Visit Diagnoses Diagnosis Vitamin D deficiency documented in this encounter Additional Health Concerns Assessment Noted Time PHQ-9 Depression Total Score: 1 09/07/20 24 9:17 AM EST documented as of this encounter Care Teams Frame Nailer Relationship Specialty Start Date End Date Agnes Christopher MD [address] [place] [id number] PCP - General Family Medicine 06/09/19 Elena Norris OD [address] [place] [address] Optometry 11/10/24 Jazmine Moreno [address] [place] [address] Drive [address] [place] [address] Gastroenterology 04/01/25 Jenna Maradiaga PharmD [address] [place] [address] Pharmacist Pharmacy 07/26/25 documented as of this encounter
--- OUTSIDE RECORDS SUMMARY | 2025-09-06 12:49 | XMS_ITS | Clinical Summary ---
Author Organization [facility] Address [address] [place] [address] 7 [place] [address] Care Team Providers Care Publisher Assistant Name Role Phone Agnes Christopher MD Primary Care Provider Elena Norris OD Unavailable [phone] TiffanieStephon guerriera Unavailable Jenna Maradiaga PharmD Unavailable Allergies Active Allergy Reactions Criticality Noted Date Comments Glipizide 07/12/2025 Hypoglycemia, severe with smallest dose Medications estradiol (Estrace) 2 MG tabletIndicatio ns:Primary ovarian failure TAKE 2 TABLETS BY MOUTH EVERY DAY 180 tablet 3 025 Active famotidine (Pepcid) 20 MG tabletIndicatio ns:Gastroesopha geal reflux disease, unspecified whether esophagitis present 025 Active progesterone 200 MG capsuleIndicati ons:Primary ovarian failure TAKE 1 CAPSULE BY MOUTH EVERY DAY FOR 12 DAYS EVERY 28 DAYS 36 capsule 11 025 Active metroNIDAZOLE (Metrogel) 0.75 % vaginal gelIndications: Bacterial Vaginosis Insert one applicator into vagina at bedtime for 7 nights 45 g 025 Active TRUEplus Lancets 33G miscIndications :Type 2 diabetes mellitus without complication, without long-term current use of insulin ([facility]) Test blood sugar twice a day 100 each 11 025 Active glucose blood (FREESTYLE LITE) test stripIndication s:Type 2 diabetes mellitus without complication, without long-term current use of insulin (HCC) TEST BLOOD SUGARS TWICE A DAY 50 each 11 025 Active cholecalciferol (Vitamin D-3) 25 MCG tabletIndicatio ns:Vitamin D deficiency TAKE 1 TABLET BY MOUTH EVERY DAY 90 tablet 3 025 Active senna (Senokot) 8.6 MG tabletIndicatio ns:Constipation , unspecified constipation type TAKE 1 TO 2 TABLETS BY MOUTH DAILY NEEDED FOR CONSTIPATION 60 tablet 2 025 Active esomeprazole (NexIUM) [address] capsule Take 1 capsule by mouth Once per day. Active sucralfate (Carafate) 1 g tablet Take 1 g by mouth at bedtime. Active atorvastatin (Lipitor) 20 MG tabletIndicatio ns:Type 2 diabetes mellitus without complication, without long-term current use of insulin ([facility]) TAKE 1 TABLET BY MOUTH EVERY DAY 90 tablet Active clotrimazole (Lotrimin) 1 % vaginal creamIndication s:Vulvovaginal Candidiasis Insert one applicator per vagina at bedtime for 7 nights 45 g 025 Active glucose (Glutose) 40 % gel oral gelIndications: Type 2 diabetes mellitus without complication, without long-term current use of insulin ([facility]) Take 15 g by mouth if needed for low blood sugar. 45 g 3 025 Active Tirzepatide (Mounjaro) 5 MG/0.5ML solution auto-injectorIn dications:Type 2 diabetes mellitus without complication, without long-term current use of insulin ([facility]) Inject 5 mg under the skin every 7 (seven) days. 2 mL 1 Active simethicone (Mylanta Gas Minis) 41.667 MG chewable tabletIndicatio ns:Epigastric pain Take 1 tab po bid prn 60 tablet 1 025 2024 Discontinued(M ed list cleanup (will not trigger notification to Pharmacy)) atorvastatin (Lipitor) 20 MG tabletIndicatio ns:Type 2 diabetes mellitus without complication, unspecified whether prison insulin use TAKE 1 TABLET BY MOUTH EVERY DAY 90 tablet 025 2024 Discontinued(R eorder (will not trigger notification to Pharmacy)) Tirzepatide (Mounjaro) 2.5 MG/0.5ML solution auto-injectorIn dications:Type 2 diabetes mellitus without complication, without long-term current use of insulin (HCC) Inject 2.5 mg under the skin 1 (one) time per week. Start 2.5 mg weekly x 4 weeks, then increase to 5 mg weekly x 4 weeks, then 7.5 mg weekly 2 mL 025 2024 Discontinued(R eorder (will not trigger notification to Pharmacy)) clotrimazole (Lotrimin) 1 % vaginal creamIndication s:Vulvovaginal Candidiasis Insert one applicator per vagina at bedtime for 7 nights 45 g 2024 Discontinued(R eorder (will not trigger notification to Pharmacy)) Tirzepatide (Mounjaro) 2.5 MG/0.5ML solution auto-injectorIn dications:Type 2 diabetes mellitus without complication, without long-term current use of insulin (HCC) Inject 2.5 mg under the skin 1 (one) time per week. Start 2.5 mg weekly x 4 weeks, then increase to 5 mg weekly 2 mL 3 025 2024 Discontinued(R eorder (will not trigger notification to Pharmacy)) Tirzepatide (Mounjaro) 2.5 MG/0.5ML solution auto-injectorIn dications:Type 2 diabetes mellitus without complication, without long-term current use of insulin (HCC) Inject 2.5 mg under the skin 1 (one) time per week. Start 2.5 mg weekly x 4 weeks, then increase to 5 mg weekly 2 mL 3 025 2024 Discontinued(D ose adjustment) Active Problems Problem Noted Date Diagnosed Date [...] and discuss treatment options. I also recommended assistant secretary evaluation regarding her questions regarding estrogen and [...] for 7 nights Chronic gastritis 03/22/2025 Overview (08/17/2025): Chronic gastritis, since at least early 2023. Stopped Metformin and GLP 1 with no improvement in symptoms. Now on Monjaro but did not have improvement in symptoms even being off Metformin and all glp1 for 2 months -Renal : Normal exam -seen by GI Generalized, right lateral mid abd pain. No RUQ pain, no pelvic pain and no evidence of SBO or acute abdomen. Unknown etiology, differential includes renal calculi, UTI, IBS, H. Pylori, and others. POCT urine negative. Normal KUB 08/20/23. -H. Pylori breath test 09/07/24 and 04/14/25 negative -UA normal 11/15/24 -check transglutaminase, vitamin B12, folate, vitamin-D level and lipase via GI -no improvement with omeprazole or pantoprazole -Nexium started by GI 06/21/25 with continue symptoms -Basrrium Swallow 07/19/25 FL/FL upper GI w air w Ba Swallow: Normal upper GI examination. -Follow up with [facility] Oct 10, 2025 AT 9 AM Assessment & Plan (08/17/2025 4:17 PM EDT): Chronic gastritis, since at least early 2023. Stopped Metformin and GLP 1 with no improvement in symptoms. Now on Monjaro but did not have improvement in symptoms even being off Metformin and all glp1 for 2 months -Renal : Normal exam -seen by GI Generalized, right lateral mid abd pain. No RUQ pain, no pelvic pain and no evidence of SBO or acute abdomen. Unknown etiology, differential includes renal calculi, UTI, IBS, H. Pylori, and others. POCT urine negative. Normal KUB 08/20/23. -H. Pylori breath test 09/07/24 and 04/14/25 negative -UA normal 11/15/24 -check transglutaminase, vitamin B12, folate, vitamin-D level and lipase via GI -no improvement with omeprazole or pantoprazole -Nexium started by GI 06/21/25 with continue symptoms -Basrrium Swallow 07/19/25 FL/FL upper GI w air w Ba Swallow: Normal upper GI examination. -Follow up with [facility] Oct 10, 2025 AT 9 AM Assessment & Plan (06/27/2025 9:46 AM EDT): [...] -Start Atorvastatin 20 mg 05/11/24 -seen in [facility] 09/07/24, ordered repeat lipid panel. Assessment & [...] due after 05/11/2025 -eye care facilitated by [facility] -dental home is 's dentist, not sure of name -health care proxy given and filed 05/11/24 Assessment & Plan (05/11/2024 9:42 AM EDT): -next physical exam due after 05/11/2025 -eye care facilitated by [facility] , referral placed 05/10/24 -dental home is [...] with aura 11/19/2022 Type 2 diabetes mellitus wit hout complication, without long-term current use of insulin 11/19/2022 Overview (08/30/2025): Diagnosed 01/2021 based on non-fasting glucose of 404 and A1c 10.1% -anti islet cell Ab and AGATHA 65 antibodies negative Lab Results Component Value Date HGBA1C 7.2 (A) 08/17/2025 HGBA1C 6.6 (A) 04/08/2025 HGBA1C 6.0 11/10/2024 Lab Results Component Value Date CREATININE 0.77 09/07/2024 EGFR >60 09/07/2024 MICROALBCREU 3.0 08/17/2025 MICROALBCREU 5.2 09/07/2024 LDLCHOLCAL 67 09/07/2024 -Blood [...] stopped and started the medications several times. -When patient was not on medication for diabetes, she reported blood sugars in the mid 250s to low 300s at home. She follows a diabetic diet and regularly goes to the gym at [employer] for > 3 years. -Patient last seen in [facility] clinic 08/30/25; mounjaro increased from 2.5mg once weekly to 5mg once weekly and glucose gel prescribed Assessment & Plan (08/17/2025 4:17 PM EDT): Diagnosed 01/2021 based on non-fasting [...] and regularly goes to the gym at [employer] for > 3 years. -Rx Munjaro 2.5 mg, PA requested -referred to [facility] with our DOMI Sahu 07/18/25 Orders: POCT glycosylated hemoglobin (Hgb A1c) atorvastatin (Lipitor) 20 MG tablet; TAKE 1 TABLET BY MOUTH EVERY DAY Tirzepatide (Mounjaro) 2.5 MG/0.5ML solution auto-injector; Inject 2.5 mg under the skin 1 (one) time per week. Start 2.5 mg weekly x 4 weeks, then increase to 5 mg weekly POCT glucose manually resulted Assessment & Plan (07/18/2025 11:24 AM EDT): [...] and regularly goes to the gym at [employer] for > 3 years. -Rx Munjaro 2.5 [...] and regularly goes to the gym at [employer] for > 3 years. -Rx Munjaro 2.5 [...] 0.25 x 1 month then 0.5 started 6/6/26 -DM foot exam: completed 05/11/24 -Statin Therapy: [...] amenorrhea. Pt previously followed by endocrinology at [facility] with primary amenorrhea. Chromosomal analysis unremarkable. Started [...] and this should be continued. She saw [facility] with Dr. Marycarmen Long MD on 07/2021. It was discussed that is very unlikely, although not impossible that she would conceive spontaneously. She was referred for IVF to [facility] [phone] and they stated they do not take [employer]. They recommend pt call [facility] for [facility] where. If IVF did not work, she could be sent to [facility]. -will check US to evaluate if [...] EDT): Pt previously followed by endocrinology at [facility] with primary amenorrhea. Chromosomal analysis unremarkable. Started [...] and this should be continued. She saw [facility] with Dr. Marycarmen Long MD on 07/2021. It was discussed that is very unlikely, although not impossible that she would conceive spontaneously. She was referred for IVF to [facility] [phone] and they stated they do not take [employer]. They recommend pt call [facility] for [facility] where. If IVF did not work, she could be sent to [facility]. -will check US to evaluate if [...] EDT): Pt previously followed by endocrinology at [facility] with primary amenorrhea. Chromosomal analysis unremarkable. Started [...] and this should be continued. She saw [facility] with Dr. Marycarmen Long MD on 07/2021. It was discussed that is very unlikely, although not impossible that she would conceive spontaneously. She was referred for IVF to [facility] [phone] and they stated they do not take [employer]. They recommend pt call [facility] for [facility] where. If IVF did not work, she could be sent to [facility]. -will check US to evaluate if [...] EDT): Pt previously followed by endocrinology at [facility] with primary amenorrhea. Chromosomal analysis unremarkable. Started [...] and this should be continued. She saw [facility] with Dr. Marycarmen Long MD on 07/2021. It was discussed that is very unlikely, although not impossible that she would conceive spontaneously. She was referred for IVF to [facility] [phone] and they stated they do not take [facility]. They recommend pt call [facility] for [facility] where. If IVF did not work, she could be sent to [facility]. 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 Please make note of this in any referrals. Assessment & Plan (04/12/2025 5:43 PM EDT): Assessment & Plan (05/11/2024 9:42 AM EDT): -Patient needs official court interpreter for all visits. Please make note of [...] test 05/11/24, she states they did not yoga instructor her a cup. Advised to ask at [...] Encounters Date Type Department Care Team Description 08/30/2025 Travel 08/23/2025 Travel 08/17/2025 10:30 AM EDT Office Visit [facility] [address] [place] [address] Agnes Christopher MD Type 2 diabetes mellitus without complication, without long-term current use of insulin (HCC) (Primary Dx); Chronic gastritis without bleeding, unspecified gastritis type; Encounter for immunization; Candidiasis 08/17/2025 Orders Only [facility] [address] [place] [address] Agnes Christopher MD 08/17/[address] [address] Agnes Christopher MD Gastro (Pt have appointment at [facility] with the GI on 10/10/25 at 9:00 am pt is notify in person. ) 08/17/2025 Travel 08/16/[address] [address] Agnes Christopher MD chart prep 08/10/2025 Travel 08/09/[address] [address] Rula Henning RN Triage; Follow Up 08/09/2025 Patient Outreach [address] [address] Agnes Christopher MD Pre-visit Planning (SDOH screening was completed on 04/08/2025) 07/26/2025 Travel 07/19/2025 Orders Only [facility] External Provider, [facility] Chronic gastritis without bleeding, unspecified gastritis type (Primary Dx) 07/18/2025 11:30 AM EDT Telemedicine [address] [address] Agnes Christopher MD Type 2 diabetes mellitus without complication, without long-term current use of insulin (CMS/HCC) (Primary Dx); Candidiasis 07/12/2025 6:20 PM EDT Telemedicine [facility] [address] [address] Agnes Christopher MD Type 2 diabetes mellitus without complication, without long-term current use of insulin (CMS/HCC) (Primary Dx) 07/12/2025 Telephone [facility] [address] [address] Agnes Christopher MD Prior Authorization (Brent THOMPSON: Kristofer) 07/12/2025 Travel 07/08/[address] [address] Gail Trejo, POWER PLANT INSTALLER Expect 06/27/2025 9:15 AM EDT Telemedicine [address] [address] Agnes Christopher MD Type 2 diabetes mellitus without complication, without long-term current use of insulin ([facility]) (Primary Dx); Chronic gastritis without bleeding, unspecified gastritis type 06/27/2025 Telephone [facility] [address] [place] [address] Agnes Christopher MD 06/27/2025 Travel 06/07/2025 Refill [facility] [address] [place] [address] Agnes Christopher MD Vitamin D deficiency 06/06/2025 10:45 AM EDT Telemedicine [facility] [address] [place] [address] Agnes Christopher MD Nipple anomaly (Primary Dx); Type 2 diabetes mellitus without complication, without long-term current use of insulin ([facility]) 06/06/2025 Travel from Last 3 Months Immunizations Immunization Administration Dates Next Due Hep B, adult 04/08/2025,11/10/2024,05/11/2024 IPV 12/16/2024 Influenza injectable quadriv alent preservative free 07/17/2022,07/23/2021,08/04/2020,2019,08/27/2019 Influenza, seasonal, injecta ble, preservative free 08/17/2025,11/10/2024 MMR 07/17/2022 Pfizer Covid-19 Vaccine 12+ 11/10/2024,0 [...] Date Job End Date [employer] Not on file Not on fi le Not on file Last Filed Vital Signs Vital Sign Reading Time Taken Comments Blood Pressure 120/84 08/17/2025 10:24 AM EDT Pulse 92 08/17/2025 10:24 AM EDT Temperature 37.2 C (98.9 F) 08/17/2025 10:24 AM EDT Respiratory Rate 20 08/17/2025 10:24 AM EDT Oxygen Saturation 97% 08/17/2025 10:24 AM EDT Inhaled Oxygen Concentration - - Weight 84.1 kg (185 lb 6.4 oz) 08/17/2025 10:24 AM EDT Height 170.2 cm (5' 7 ) 08/17/2025 10:24 AM EDT Body Mass Index 29.04 08/17/2025 10:24 AM EDT Plan of Treatment Upcoming Encounters Date Type Department Care Team (Late st Contact Info) Description 09/20/2025 10:00 AM EST Medication Management [facility] [address] [place] [address] Jenna Maradiaga, PharmD [address] [place] [address] Health Maintenance Due Date Last Done Comments HPV Vaccines (1 - 3-dose series) 2001 IPV Vaccines (2 of 3 - Adult catch-up series) 01/13/2025 12/16/2024 Lipid Panel 09/07/2025 09/07/2024, 07/0 07/2024, 12/05/2022, Additional history exists Diabetes: Hemoglobin A1C 11/17/2025 025, 04/08/2025, 11/10/2024, Additional history exists Alcohol/Substance Use Screening 04/08/2026 04/08/2025 SDOH Screening 04/08/2026 04/08/2025 Family Planning (PISQ) 04/22/2026 04/22/2025 Disability Screening 05/18/2026 05/18/2025 Depression Screening 06/27/2026 06/27/2025, 09/07/20 24 Diabetes: Foot Exam 08/17/2026 08/17/2025, 08/17/2025, 08/17/2025, Additional history exists Diabetes: Urine Protein Screening 08/17/2026 08/17/2025, 09/07/2024, 02/20/2022, Additional history exists Tobacco Screening 08/17/2026 08/17/2025 Eye Exam 10/19/2026 10/19/2024, 10/03, 10/19/2024, Additional [...] Hepatitis B Vaccines Completed 04/08/2025, 11/10/2024, 05/11/2024 Influenza Vaccine Completed 08/17/2025, , 07/17/2022, Additional history exists HIB Vaccines Aged Out No longer eligi [...] Procedure Name Priority Date/Time Associated Diagnosis Comments BI US BREAST LIMITED BILATERAL Routine 09/06/2025 11:49 AM EST BI MAMMOGRAM DIAGNOSTIC TOMOSYNTHESIS BILATERAL Routine 09/06/2025 10:50 AM EST ALBUMIN, RANDOM URINE W/CREATININE Routine 08/17/2025 11:28 AM EDT POCT GLUCOSE Routine 08/17/2025 10:46 AM EDT Type 2 diabetes mellitus without complication, without long-term current use of insulin (HCC) POCT GLYCOSYLATED HEMOGLOBIN (HGB A1C) Routine 08/17/2025 10:46 AM EDT Type 2 diabetes mellitus without complication, without long-term current use of insulin (HCC) FL UPPER GI W AIR W BARIUM SWALLOW Routine 07/19/2025 9:29 AM EDT HPV MRNA E6/E7 REFLEX TO HPV 16, 18/45 Routine 11/10/2024 12:00 AM EST PAP SMEAR Routine 11/10/2024 12:00 AM EST Cervical cancer screening LIPID PANEL, STANDARD Routine 09/07/2024 10:18 AM [...] Recently Relevant to Health Maintenance Results * BI US Breast Limited Bilateral (09/06/2025 11:49 AM EST) Anatomical Region Laterality Modality Breast Bilateral Ultrasound 09/06/2025 11:4 9 AM EST Narrative 09/06/2025 12:46 PM EST [facility] [address] [place] [address] Ultrasound Report Signed Patient: Briana Garcia MR#: [id number] : 1985 Acct:[id number] Age/Sex: 40 / F ADM Date: 09/06/25 Loc: HO.MAMMO Attending Dr: Feliz Aguilera MD Ordering Physician: Feliz Aguilera MD Date of Service: 09/06/25 Procedure(s): US Breast BI Limited Mamm Only Accession Number(s): [id number] cc: Agnes Christopher MD; Feliz Aguilera MD Reason for Exam: N64.4 - Mastodynia EXAMINATION(S): 1. MM DIAGNOSTIC DIGITAL BREAST TOMOSYNTHESIS, BILATERAL 2. Targeted ultrasound of the right breast 3. Targeted ultrasound of the left breast CLINICAL INFORMATION: According to requisition: Prominent bilateral nipples, on estrogen and progesterone. Bilateral nipple pain. According to patient: Patient denies bilateral pain. However, right breast discomfort/lump. COMPARISON: February 06, 2021 TECHNIQUE: Digital breast tomosynthesis is performed in both the mediolateral oblique and craniocaudal views along with computer-aided detection (CAD). Synthesized 2D images are generated from the tomosynthesis. A skin BB marker is placed at the location of the palpable concern as indicated by the patient in the right breast. FINDINGS: BREAST COMPOSITION: There are scattered areas of fibroglandular density. RIGHT BREAST: Subareolar density is more prominent than 2020; this is more prominent than contralateral left side. No significant masses, suspicious calcifications or other abnormalities are seen. In particular, no suspicious mammographic findings adjacent to the skin BB marker placed in the lower inner quadrant. Targeted ultrasound of the right breast was performed at the following locations: -Nipple pain as indicated by the requisition. Normal sonographic appearance on the nipple area. The survey of subareolar/retroareolar region shows heterogeneous ill-defined area, more prominent than the left side. -Right lump as indicated by the patient. The survey centered along the 1:00-2:00 axis at the areola did not reveal suspicious sonographic findings. LEFT BREAST: Subareolar density, more prominent than in 2020. No significant masses, suspicious calcifications or other abnormalities are seen. Targeted ultrasound of the left breast was performed at the location of the nipple pain per requisition. Normal sonographic appearance of the nipple area. The survey of subareolar/retroareolar region shows heterogeneous ill-defined area, less prominent than contralateral right side. US/US Breast BI Limited Mamm Only IMPRESSION: BILATERAL BREASTS: -Prominent subareolar density/heterogeneous sonographic area, right greater than left, more prominent than 2020, but without definite suspicious findings. Benign, no evidence of malignancy. Clinical follow-up is recommended. Otherwise, normal interval follow-up mammogram is recommended in 12 months. -No suspicious findings to accounts for the palpable concern in the right breast. Clinical follow-up recommended, independent of imaging findings. ASSESSMENT: BI-RADS: Category 2: Benign RECOMMENDATION: 1. Patient should be managed based on the clinical impression. 2. Otherwise, routine annual screening mammography. Results were provided to the patient at time of visit by the technologist. This patient's information was entered into a reminder system with a target due date for their next mammogram. Electronically signed by: Romario Baca MD 09/06/2025 12:43 PM [facility] Dictated By: Romario Baca MD Signed By: <Electronically signed by Romario Baca MD in OV> 09/06/25 1243 DD/ 1149 TD/TT: 09/06/25 1215 Lead Web Application Developer: Procedure Note Donotuseinterpreter, Image - 09/06/2025 [facility] [address] [place] [address] Ultrasound Report Signed Patient: Briana Garcia GMR#: [id number] : 1985Acct:[id number] Age/Sex: 40 / FADM Date: 09/06/25 Loc: HO.MAMMO Attending Dr: Feliz Aguilera MD Ordering Physician: Feliz Aguilera MD Date of Service: 09/06/25 Procedure(s): US Breast BI Limited Mamm Only Accession Number(s): [id number] cc: Agnes Christopher MD; Feliz Aguilera MD Reason for Exam: N64.4 - Mastodynia EXAMINATION(S): 1. MM DIAGNOSTIC DIGITAL BREAST TOMOSYNTHESIS, BILATERAL 2. Targeted ultrasound of the right breast 3. Targeted ultrasound of the left breast CLINICAL INFORMATION: According to requisition: Prominent bilateral nipples, on estrogen and progesterone. Bilateral nipple pain. According to patient: Patient denies bilateral pain. However, right breast discomfort/lump. COMPARISON: February 06, 2021 TECHNIQUE: Digital breast tomosynthesis is performed in both the mediolateral oblique and craniocaudal views along with computer-aided detection (CAD). Synthesized 2D images are generated from the tomosynthesis. A skin BB marker is placed at the location of the palpable concern as indicated by the patient in the right breast. FINDINGS: BREAST COMPOSITION: There are scattered areas of fibroglandular density. RIGHT BREAST: Subareolar density is more prominent than 202; this is more prominent than contralateral left side. No significant masses, suspicious calcifications or other abnormalities are seen. In particular, no suspicious mammographic findings adjacent to the skin BB marker placed in the lower inner quadrant. Targeted ultrasound of the right breast was performed at the following locations: -Nipple pain as indicated by the requisition. Normal sonographic appearance on the nipple area. The survey of subareolar/retroareolar region shows heterogeneous ill-defined area, more prominent than the left side. -Right lump as indicated by the patient. The survey centered along the 1:00-2:00 axis at the areola did not reveal suspicious sonographic findings. LEFT BREAST: Subareolar density, more prominent than in 202. No significant masses, suspicious calcifications or other abnormalities are seen. Targeted ultrasound of the left breast was performed at the location of the nipple pain per requisition. Normal sonographic appearance of the nipple area. The survey of subareolar/retroareolar region shows heterogeneous ill-defined area, less prominent than contralateral right side. US/US Breast BI Limited Mamm Only IMPRESSION: BILATERAL BREASTS: -Prominent subareolar density/heterogeneous sonographic area, right greater than left, more prominent than 202, but without definite suspicious findings. Benign, no evidence of malignancy. Clinical follow-up is recommended. Otherwise, normal interval follow-up mammogram is recommended in 12 months. -No suspicious findings to accounts for the palpable concern in the right breast. Clinical follow-up recommended, independent of imaging findings. ASSESSMENT: BI-RADS: Category 2: Benign RECOMMENDATION: 1. Patient should be managed based on the clinical impression. 2. Otherwise, routine annual screening mammography. Results were provided to the patient at time of visit by the technologist. This patient's information was entered into a reminder system with a target due date for their next mammogram. Electronically signed by: Romario Baca MD 09/06/2025 12:43 PM [facility] Dictated By: Romario Baca MD Signed By: <Electronically signed by Romario Baca MD in OV> 09/06/25 1243 DD/ 1149 TD/TT: 09/06/25 1215 Lead Web Application Developer: us [facility] External Provider IMG US PROCEDURES Final Result * BI Mammogram Diagnostic Tomosynthesis Bilateral (09/06/2025 10:50 AM EST) Anatomical Region Laterality Modality Breast Bilateral Mammography 09/06/2025 10:5 0 AM EST Narrative 09/06/2025 12:46 PM EST [facility] [address] [place] [address] Mammography Report Signed Patient: Briana Garcia MR#: [id number] : 1985 Acct:[id number] Age/Sex: 40 / F ADM Date: 09/06/25 Loc: HO.MAMMO Attending Dr: Feliz Aguilera MD Ordering Physician: Feliz Aguilera MD Results: 2Beni gn Date of Service: 09/06/25 Follow Up: 1 Year From Orig ina Mammogram Procedure(s): MM tomosynthesis diagnostic BI Accession Number(s): [id number] cc: Agnes Christopher MD; Feliz Aguilera MD Reason For Exam: N64.4 - Mastodynia EXAMINATION(S): 1. MM DIAGNOSTIC DIGITAL BREAST TOMOSYNTHESIS, BILATERAL 2. Targeted ultrasound of the right breast 3. Targeted ultrasound of the left breast CLINICAL INFORMATION: According to requisition: Prominent bilateral nipples, on estrogen and progesterone. Bilateral nipple pain. According to patient: Patient denies bilateral pain. However, right breast discomfort/lump. COMPARISON: February 06, 2021 TECHNIQUE: Digital breast tomosynthesis is performed in both the mediolateral oblique and craniocaudal views along with computer-aided detection (CAD). Synthesized 2D images are generated from the tomosynthesis. A skin BB marker is placed at the location of the palpable concern as indicated by the patient in the right breast. FINDINGS: BREAST COMPOSITION: There are scattered areas of fibroglandular density. RIGHT BREAST: Subareolar density is more prominent than 2020; this is more prominent than contralateral left side. No significant masses, suspicious calcifications or other abnormalities are seen. In particular, no suspicious mammographic findings adjacent to the skin BB marker placed in the lower inner quadrant. Targeted ultrasound of the right breast was performed at the following locations: -Nipple pain as indicated by the requisition. Normal sonographic appearance on the nipple area. The survey of subareolar/retroareolar region shows heterogeneous ill-defined area, more prominent than the left side. -Right lump as indicated by the patient. The survey centered along the 1:00-2:00 axis at the areola did not reveal suspicious sonographic findings. LEFT BREAST: Subareolar density, more prominent than in 202. No significant masses, suspicious calcifications or other abnormalities are seen. Targeted ultrasound of the left breast was performed at the location of the nipple pain per requisition. Normal sonographic appearance of the nipple area. The survey of subareolar/retroareolar region shows heterogeneous ill-defined area, less prominent than contralateral right side. MM/MM tomosynthesis diagnostic BI IMPRESSION: BILATERAL BREASTS: -Prominent subareolar density/heterogeneous sonographic area, right greater than left, more prominent than 202, but without definite suspicious findings. Benign, no evidence of malignancy. Clinical follow-up is recommended. Otherwise, normal interval follow-up mammogram is recommended in 12 months. -No suspicious findings to accounts for the palpable concern in the right breast. Clinical follow-up recommended, independent of imaging findings. ASSESSMENT: BI-RADS: Category 2: Benign RECOMMENDATION: 1. Patient should be managed based on the clinical impression. 2. Otherwise, routine annual screening mammography. Results were provided to the patient at time of visit by the technologist. This patient's information was entered into a reminder system with a target due date for their next mammogram. Electronically signed by: Romario Baca MD 09/06/2025 12:43 PM [facility] Dictated By: Romario Baca MD Signed By: <Electronically signed by Romario Baca MD in OV> 09/06/25 1243 DD/ 1050 TD/TT: 09/06/25 1120 Lead Web Application Developer: Procedure Note Donotuseinterpreter, Image - 09/06/2025 [facility] [address] [place], [place] [address] Mammography Report Signed Patient: Briana Garcia GMR#: [id number] : 1985Acct:[id number] Age/Sex: 40 / FADM Date: 09/06/25 Loc: HO.MAMMO Attending Dr: Feliz Aguilera MD Ordering Physician: Feliz Aguilera MDResults: 2Beni gn Date of Service: 09/06/25Follow Up: 1 Year From Orig ina Mammogram Procedure(s): MM tomosynthesis diagnostic BI Accession Number(s): [id number] cc: Agnes Christopher MD; Feliz Aguilera MD Reason For Exam: N64.4 - Mastodynia EXAMINATION(S): 1. MM DIAGNOSTIC DIGITAL BREAST TOMOSYNTHESIS, BILATERAL 2. Targeted ultrasound of the right breast 3. Targeted ultrasound of the left breast CLINICAL INFORMATION: According to requisition: Prominent bilateral nipples, on estrogen and progesterone. Bilateral nipple pain. According to patient: Patient denies bilateral pain. However, right breast discomfort/lump. COMPARISON: February 06, 2021 TECHNIQUE: Digital breast tomosynthesis is performed in both the mediolateral oblique and craniocaudal views along with computer-aided detection (CAD). Synthesized 2D images are generated from the tomosynthesis. A skin BB marker is placed at the location of the palpable concern as indicated by the patient in the right breast. FINDINGS: BREAST COMPOSITION: There are scattered areas of fibroglandular density. RIGHT BREAST: Subareolar density is more prominent than 2020; this is more prominent than contralateral left side. No significant masses, suspicious calcifications or other abnormalities are seen. In particular, no suspicious mammographic findings adjacent to the skin BB marker placed in the lower inner quadrant. Targeted ultrasound of the right breast was performed at the following locations: -Nipple pain as indicated by the requisition. Normal sonographic appearance on the nipple area. The survey of subareolar/retroareolar region shows heterogeneous ill-defined area, more prominent than the left side. -Right lump as indicated by the patient. The survey centered along the 1:00-2:00 axis at the areola did not reveal suspicious sonographic findings. LEFT BREAST: Subareolar density, more prominent than in 2020. No significant masses, suspicious calcifications or other abnormalities are seen. Targeted ultrasound of the left breast was performed at the location of the nipple pain per requisition. Normal sonographic appearance of the nipple area. The survey of subareolar/retroareolar region shows heterogeneous ill-defined area, less prominent than contralateral right side. MM/MM tomosynthesis diagnostic BI IMPRESSION: BILATERAL BREASTS: -Prominent subareolar density/heterogeneous sonographic area, right greater than left, more prominent than 202, but without definite suspicious findings. Benign, no evidence of malignancy. Clinical follow-up is recommended. Otherwise, normal interval follow-up mammogram is recommended in 12 months. -No suspicious findings to accounts for the palpable concern in the right breast. Clinical follow-up recommended, independent of imaging findings. ASSESSMENT: BI-RADS: Category 2: Benign RECOMMENDATION: 1. Patient should be managed based on the clinical impression. 2. Otherwise, routine annual screening mammography. Results were provided to the patient at time of visit by the technologist. This patient's information was entered into a reminder system with a target due date for their next mammogram. Electronically signed by: Romario Baca MD 09/06/2025 12:43 PM [facility] Dictated By: Romario Baca MD Signed By: <Electronically signed by Romario Baca MD in OV> 09/06/25 1243 DD/ 1050 TD/TT: 09/06/25 1120 Lead Web Application Developer: us [facility] External Provider IMG BI PROCEDURES Final Result * Albumin, Random Urine W/Creatinine (08/17/2025 11:28 AM EDT) Creatinine, Urine 196.58 mg/dL [facility] Microalbumin Urine 6.0 mg/L [facility] Microalbum Creatinine Ratio Ur 3.0 <30 ug/mg cr [facility] Comment:Albumin/Creatinine R atio Reference Ranges: Normal: < 30 ug/mg creatinine Microalbuminuria: 30 - 300 ug/mg creatinineClinical Albuminuria: > 300 ug/mg creatinine 08/17/2025 11:2 8 AM EDT 08/17/2025 12:59 PM EDT us Agnes Christopher MD LAB URINE ORDERABLES Final Result [facility] [address] [place] [phone] * (ABNORMAL) POCT glycosylated hemoglobin (Hgb A1c) (08/17/2025 10:46 AM EDT) Hemoglobin A1C 7.2(A) 4.0 - 5.7 % QC Media Lot # [id number] Lot# Expiration Date , Blood Capillary blood specimen / Unknown 08/17/2025 10:46 AM EDT Agnes Christopher MD POINT OF CARE TEST ENTER/E DIT ORDERABLES Final Result * POCT glucose manually resulted (08/17/2025 10:46 AM EDT) Glucose Blood, POC 198 60 - 200 mg/dL QC Media Lot # [id number] Lot# Expiration Date 2933,285 Blood Capillary blood specimen / Unknown 08/17/2025 10:46 AM EDT us Agnes Christopher MD POINT OF CARE TEST ENTER/E DIT ORDERABLES Final Result * FL Upper GI w/air w/Barium Swallow (07/19/2025 9:29 AM EDT) Anatomical Region Laterality Modality Body Radiographic Nella ging 07/19/2025 9:29 AM EDT Narrative 07/19/2025 3:31 PM EDT [address] [address] Fluoroscopy Report Signed Patient: Briana Garcia MR#: [id number] : 1985 Acct:[id number] Age/Sex: 40 / F ADM Date: 07/19/25 Loc: HO.XRAY Attending Dr: Jazmine Moreno [facility] Ordering Physician: Jazmine Moreno Date of Service: 07/19/25 Procedure(s): FL upper GI w air w Ba Swallow Accession Number(s): [id number] cc: Agnes Christopher MD; Jazmine Moreno [facility] Reason for Exam: K21.9 - Gastro-esophageal reflux disease without esophagitis EXAMINATION: XR FLUOROSCOPY UPPER GI SERIES CLINICAL INFORMATION: GERD symptoms. COMPARISON: None TECHNIQUE: Fluoroscopic air contrast upper GI examination was performed utilizing standard techniques with thin and thick barium and effervescent granules. Numerous spot images were obtained. Several fluoroscopic image hold cine sequences were also obtained. FINDINGS: Study is mildly limited secondary to patient deafness and thus being unable to accurately follow commands during the procedure, despite the use of the visual traffic signal technician. This limits the sensitivity of the study. UPPER GI SERIES: Lateral cine images of the oropharynx and hypopharynx demonstrate normal swallow mechanism with normal epiglottic inversion and soft palate elevation. No laryngeal penetration, glottic or subglottic aspiration identified. Hypopharyngeal structures appear normal without evidence of mass or diverticulum. There was no significant cricopharyngeal achalasia. Dual and single contrast images of the esophagus demonstrate normal caliber, contour, and mucosal pattern. No evidence of stricture, mass, or ulcerations identified. Esophageal peristalsis was normal. No evidence of hiatus hernia identified. No significant gastroesophageal reflux was seen during the course of the examination. Dual contrast and single contrast images of the stomach demonstrated normal contour and mucosal pattern without evidence of mass, ulceration, or other abnormality. Normal rugal fold pattern. Contrast freely passed into the gastric antrum and duodenal bulb without delay. Single and air-contrast images of the duodenal bulb demonstrate no abnormality. The duodenal sweep has a normal appearance, course, and mucosal fold appearance. FLUOROSCOPY TIME: 1 minute, 11 seconds Number of Spot Images:12 Number of cines obtained: 5 DOSE AREA PRODUCT: 2422 uGy-m2 (microgray-meter squared) FL/FL upper GI w air w Ba Swallow IMPRESSION: 1. Normal upper GI examination. Electronically signed by: Wu Ruggiero MD 07/19/2025 03:27 PM EDT RP Dictated By: Wu Ruggiero MD Signed By: <Electronically signed by Wu Ruggiero MD in OV> 07/19/25 1527 DD/ 0929 TD/TT: 07/19/25 1000 Lead Web Application Developer: Procedure Note Donotuseinterpreter, Image - 07/19/[address] [address] Fluoroscopy Report Signed Patient: Briana Garcia GMR#: [id number] : 1985Acct:[id number] Age/Sex: 40 / FADM Date: 07/19/25 Loc: HOMARCELO Attending Dr: Jazmine Moreno [facility] Ordering Physician[facility] Date of Service: 07/19/25 Procedure(s): FL upper GI w air w Ba Swallow Accession Number(s): [id number] cc: Agnes Christopher MD; Jazmine Moreno [facility] Reason for Exam: K21.9 - Gastro-esophageal reflux disease withoutesophagitis EXAMINATION: XR FLUOROSCOPY UPPER GI SERIES CLINICAL INFORMATION: GERD symptoms. COMPARISON: None TECHNIQUE: Fluoroscopic air contrast upper GI examination was performed utilizing standard techniques with thin and thick barium and effervescent granules. Numerous spot images were obtained. Several fluoroscopic image hold cine sequences were also obtained. FINDINGS: Study is mildly limited secondary to patient deafness and thus being unable to accurately follow commands during the procedure, despite the use of the visual traffic signal technician. This limits the sensitivity of the study. UPPER GI SERIES: Lateral cine images of the oropharynx and hypopharynx demonstrate normal swallow mechanism with normal epiglottic inversion and soft palate elevation. No laryngeal penetration, glottic or subglottic aspiration identified. Hypopharyngeal structures appear normal without evidence of mass or diverticulum. There was no significant cricopharyngeal achalasia. Dual and single contrast images of the esophagus demonstrate normal caliber, contour, and mucosal pattern. No evidence of stricture, mass, or ulcerations identified. Esophageal peristalsis was normal. No evidence of hiatus hernia identified. No significant gastroesophageal reflux was seen during the course of the examination. Dual contrast and single contrast images of the stomach demonstrated normal contour and mucosal pattern without evidence of mass, ulceration, or other abnormality. Normal rugal fold pattern. Contrast freely passed into the gastric antrum and duodenal bulb without delay. Single and air-contrast images of the duodenal bulb demonstrate no abnormality. The duodenal sweep has a normal appearance, course, and mucosal fold appearance. FLUOROSCOPY TIME: 1 minute, 11 seconds Number of Spot Images:12 Number of cines obtained: 5 DOSE AREA PRODUCT: 2422 uGy-m2 (microgray-meter squared) FL/FL upper GI w air w Ba Swallow IMPRESSION: 1. Normal upper GI examination. Electronically signed by: Wu Ruggiero MD 07/19/2025 03:27 PM EDT RP Dictated By: Wu Ruggiero MD Signed By: <Electronically signed by Wu Ruggiero MD in OV> 07/19/25 1527 DD/ 0929 TD/TT: 07/19/25 1000 Lead Web Application Developer: [facility] Exter nal Provider IMG FLUOROSCOPY PROCEDURES Edited Result - Final * HPV mRNA E6/E7 w/Reflex to HPV Genotypes 16, 18/45 (11/10/2024 12:00 AM EST) Historical Provider LAB CYTOLOGY ORDERABLES F inal Result * Pap Smear (11/10/2024 12:00 AM EST) Swab Cervix uteri structure / Unknown 11/10/2024 11/11/2024 7:40 AM EST Narrative [facility] - 11/16/2024 12:56 PM EST ----- ------- Name: Briana Garcia Age/Sex: 39/F : 1985 Unit#: [id number] Attend Dr: Agnes Christopher MD Re11/10/24 Status: DEP REF Location: HOJoseHHCLNP Disch: ----- ------- SPEC : [id number] RECD: 11/11/24 STATUS: JOSETTE YO NUM: [id number] FARAZ: 11/10/24-[address]: Agnes Christopher MD ENTERED: 11/11/24 SP TYPE: Pap Smr OTHR DR: ORDERED: Pap Smear Interpretation Satisfactory for evaluation. Negative for intraepithelial lesion or malignancy. HPV High Risk: Negative HPV Genotyping 16: Negative HPV Genotyping 18: Negative Clinical Information LMP: Previous PAP test: 5 years ago, negative Other surgery: Other history: Material Received ThinPrep ----- ------- Signed (signature on file) CARMELINA Dowd ([facility]) 11/16/24 1256 ----- ------- END OF REPORT Agnes Christopher MD LAB CYTOLOGY ORDERABLES Fi nal Result Performing Organization Address [facility] Co de Phone Number [facility] [address] [place] [phone] [phone] * Lipid Panel, Standard (09/07/2024 10:18 AM EST) Triglycerides 84 <150 mg/dL [facility] Comment:Desirable Triglyceri de: less than 150 mg/dLBorderline High Triglyceride 150-199 mg/dLHigh Triglyceride: 200-499 mg/dLVery High Triglyceride: greater than or equal to 5OO mg/dL Cholesterol 136 <200 mg/dL [facility] Comment:Desirable Cholestero l: less than 200 mg/dLBorderline High Cholesterol: 200-239 mg/dLHigh Cholesterol: greater than 239 mg/dL LDL Cholesterol Calculated 67 <100 mg/dL [facility] Comment:Desirable LDL: less than 100 mg/dLNear Optimal/Above Optimal LDL: 110- 129 mg/dLBorderline High LDL: 130-159 mg/dLHigh LDL: 160-189 mg/dLVery High LDL: greater than or equal to 190 mg/dL HDL Cholesterol 53 >40 mg/dL [facility] Comment:Desirable HDL: great er than 40 mg/dL Note: This HDL assay may give artificially low results in patients with liver disease. Blood Venous blood specimen / Unknown 09/07/2024 10:18 AM EST 09/07/2024 11:22 AM EST Agnes Christopher MD LAB BLOOD ORDERABLES Final Result Performing Organization Address City/[facility]/ZIP Co de Phone Number [facility] [address] [place] [phone] [phone] * Hepatitis C Antibody with Reflex to HCV, RNA, Quantitative, Real-Time PCR (12/05/2022 3:47 PM EST) Hepatitis C Antibody NON-REACT ANNIE NON-REACT ANNIE [email or web address] [place] [facility] Index 0.02 <1.00 [email or web address] [place] [facility] Comment: HCV antibody was non-reactive. There is no laboratory evidence of HCV infection. In most cases, no further action is required. However, if recent HCV exposure is suspected, a test for HCV RNA (test code 13183) is suggested. For additional information please refer to http://[employer]/faq/YHH49w4 (This link is being provided for informational/ educational purposes only.) Blood Venous blood specimen / Unknown 12/05/2022 3:47 PM EST 12/05/2022 3:48 PM EST Narrative [facility] - 12/09/2022 2:40 PM EST FASTING:NO FASTING: NO us Agnes Christopher MD LAB BLOOD ORDERABLES Final Result [facility] [address] [facility], [place] [address] [email or web address] [place] [facility] [address] [facility], ([address]) [place] [address] * HIV-1/2 Antigen and Antibodies, Fourth Generation, with Reflexes (12/05/2022 3:47 PM EST) HIV Antigen/Antibody, 4th Generation NON-REAC TIVE NON-REAC TIVE [email or web address] [place] [facility] Comment: HIV-1 antigen and HIV-1/HIV-2 antibodies were [...] purpose. For additional information please refer to http://[employer]wa/faq/VQW305 (This link is being provided for informational/ educational purposes only.) The performance of this assay has not been clinically validated in patients less than 2 years old. Blood Venous blood specimen / Unknown 12/05/2022 3:47 PM EST 12/05/2022 3:48 PM EST Narrative [facility] - 12/09/2022 2:40 PM EST FASTING:NO FASTING: NO Agnes Christopher MD LAB BLOOD ORDERABLES Final Result [facility] [address] [facility], [place] [address] [email or web address] [place] [facility] [address] [facility], ([address]) [place] [address] from Last 3 Months or Most Recently Relevant to Health Maintenance Insurance [facility] [address] [place] [address] Advance Directives Documents on File Type Date Recorded Patient Blender/Braze Applicator Expl anation Advance Directives and Living Will 05/12/2024 2:59 PM Health Care Proxy Care Teams Publisher Assistant Relationship Specialty Start Date End Date Agnes Christopher MD [address] [place] [address] PCP - General Family Medicine 06/09/19 Elena Norris OD [address] [place] [address] Optometry 11/10/24 Jazmine Moreno [address] [place] [address] Gastroenterology 04/01/25 Jenna Maradiaga, JuneD [address] [place] [address] Pharmacist Pharmacy 07/26/25
--- OUTSIDE RECORDS SUMMARY | 2025-09-06 12:49 | XMS_ITS | Encounter Summary ---
Author Organization [employer] Address [address] [place] [address] [address] [place] [address] Care Team Providers Care Commission Auditor Name Role Phone Agnes Christopher MD Primary Care Provider Elena Norris OD Unavailable [phone] TiffanieJazmine guerrier Unavailable Jenna Maradiaga PharmD Unavailable [phone] Reason for Visit * Reason Comments Med Refill Encounter Details Date Type Department Care Team (Late st Contact Info) Description 03/17/2024 Refill [facility] [address] [place], [place] [phone] Rui Villegas MD [address] [place] [address] Social History Tobacco Use Types Packs/Day Years [...] Description 09/20/2025 10:00 AM EST Medication Management [facility] [address] [place] [address] Jenna Maradiaga, Adelina [address] [place] [address] documented as of this encounter Visit Diagnoses Not on filedocumented in this encounter Care Teams Commission Auditor Relationship Specialty Start Date End Date Agnes Christopher MD [address] [place] [address] PCP - General Family Medicine 06/09/19 Elena Norris OD [address] [place] [phone] Optometry 11/10/24 Jazmine Moreno [address] [place] [address] Gastroenterology 04/01/25 Jenna Maradiaga, Adelina [address] [place] [phone] Pharmacist Pharmacy 07/26/25 documented as of this encounter
== END 2025-09-06 10:45 | disposition home or self-care (01) ==
LOC: HO.MAMMO 10:44
PROVIDERS: PCP Family Medicine; Visit Provider Surgery
DX: N64.4 Mastodynia (principal)
CPT/HCPCS: 76642; 77062; 77066

== ENCOUNTER → 2025-09-06 11:00 | Outpatient (BNV) | payer OTHER, SELFPAY | PROVIDERS: PCP Family Medicine; Visit Provider Radiology Body Imaging | DX: N64.4 Mastodynia (principal) | CPT/HCPCS: 76642; 77062; 77066 ==

== ENCOUNTER 2025-10-10 08:51 | Outpatient (AMB) | payer OTHER, SELFPAY ==
[2025-10-10 09:02] VITALS: BP 118/61; PULSE 101; BMI 29.0
--- NOTE | 2025-10-10 09:02 | A.OFFVIS_ITS ---
Vital Signs 10/10/25 09:02 Height 5 ft 7 in Weight 185 lb 3.013 oz BMI 29.0 BP 118/61 Blood Pressure Location Lt brachial Position Sitting Pulse 101 H Intake Visit Reasons: 4m Intake Note: Briana presents to in office follow up of GERD. CC: Patient reports doing well and denies any new GI concerns today. Filter Tank Operator Required: Yes Filter Tank Operator Name: [id number] Accompanied by: Self / Same As Patient Allergies No Known Allergies Allergy (Verified 10/10/25 09:10) Medication List - Last Reconciled 10/10/25 by HAYDER Gurrola atorvastatin 20 mg PO BEDTIME blood-glucose meter (FreeStyle Lite Meter kit) As directed cholecalciferol (vitamin D3) 25 mcg PO DAILY clobetasol 0.05% 1 appl topical BEDTIME esomeprazole magnesium (Nexium) 40 mg PO DAILY estradiol 2 mg PO DAILY famotidine 20 mg PO BID metformin 500 mg PO DAILY progesterone micronized 200 mg PO BEDTIME sennosides (senna) 8.6 mg PO BEDTIME simethicone 126 mg PO BEDTIME PRN sucralfate 1 g PO BEDTIME tirzepatide (Mounjaro) 5 mg subcut QWEEK HPI HPI 4m: Details: LAST VISIT Gastroesophageal reflux disease Postprandial epigastric pain Postprandial abdominal bloating Dyspepsia Constipation Plan Patient will stop taking pantoprazole and start Nexium. She can take sucralfate when she gets home and at bedtime. Stop famotidine. Avoid dietary triggers and late night snacking. Staying upright for minimal 3 hours after meals discussed with patient. Recommend to stop Trulicity and possibly put patient on Monjaro. Patient was encouraged to keep her appointment with radiology on July 19. Keep her appointment with me for follow-up. She was encouraged to call our office if she will continue to have symptoms. Patient is agreeable to current plan of care and verbalizes understanding of instructions. She was given the opportunity to ask questions and all questions answered. ? Thank you for allowing me to participate in her care New esomeprazole magnesium (Nexium) 40 mg PO DAILY 30 caps 3RF K21.9 sucralfate 1 g PO BEDTIME 30 tabs 4RF K21.9, R10.13 Discontinued pantoprazole take one tablet half an hour before breakfast Discontinued Reason: Doctor's Order 40 mg PO DAILY 90 days 90 tabs 2RF K21.9 TODAY'S VISIT Patient is here today for follow-up. Patient reports that she is doing significantly better. Continues to have occasional epigastric pain and reflux depending on what she eats. For the most part patient reports that she is feeling well. She is taking Nexium in the morning and sucralfate at bedtime. Patient denies any dyspepsia, dysphagia or odynophagia. Upper GI series was normal. Patient reports occasional abdominal bloating depending on what she eats. Trulicity was discontinued as patient had worsening GI symptoms with abdominal pain and severe reflux. This is the 2nd month of Mounjaro and patient reports that she is tolerating it well. Patient denies diarrhea, mucus in her stools. Occasional constipation, takes senna. [facility] Medical History Constipation Diabetes GERD (gastroesophageal reflux disease) Family History Father Colon cancer Social History Alcohol intake: never Patient Tobacco Use Status: Never used Tobacco Female Reproductive History Menstrual Age of Menarche: 36 Review of Systems Const Denies weight gain and Denies weight loss ENT Reports no additional complaints, Denies dysphagia and Denies odynophagia Card Reports no additional complaints Resp Reports no additional complaints GI Reports abdominal pain (Epigastric), Denies belching, Denies melena, Reports bloating, Denies change in bowel habits, Denies dysphagia, Denies excessive flatus, Reports dyspepsia (Occasional), Reports heartburn, Denies diarrhea, Denies loose stools, Denies nausea, Denies odynophagia and Denies vomiting Reports no additional complaints Musc Reports no additional complaints Neuro Reports no additional complaints Psych Reports no additional complaints Endo Reports no additional complaints Physical Exam Vital Signs: Last Vital Signs Pulse 101 H 10/10/25 09:02 BP 118/61 10/10/25 09:02 BMI result Body Mass Index 29.0 Const General: healthy appearing, no acute distress and well developed Nutritional Appearance: well nourished Orientation/consciousness: patient oriented x3 Resp Effort & Inspection: normal respiratory effort, able to speak in complete sentences, no tracheal deviation and symmetric chest movement Auscultation: clear to auscultation bilaterally Cardio Rate: regular rate GI Inspection: Yes normal to inspection and No distended Palpation (GI): Soft to palpation, not firm, nontender and No hepatosplenomegaly present Auscultation: normal bowel sounds General: Yes no CVA tenderness Back/Spine/Pelvis Back: no CVA tenderness Skin General skin exam: elasticity normal, turgor normal and dry skin Neuro General: patient oriented x3 Psych Appearance: grossly normal Mental Status: mental status grossly normal Results Reviewed Results Reviewed: UPPER GI WITH BARIUM SWALLOW FINDINGS: Study is mildly limited secondary to patient deafness and thus being unable to accurately follow commands during the procedure, despite the use of the visual software applications designer. This limits the sensitivity of the study. UPPER GI SERIES: Lateral cine images of the oropharynx and hypopharynx demonstrate normal swallow mechanism with normal epiglottic inversion and soft palate elevation. No laryngeal penetration, glottic or subglottic aspiration identified. Hypopharyngeal structures appear normal without evidence of mass or diverticulum. There was no significant cricopharyngeal achalasia. Dual and single contrast images of the esophagus demonstrate normal caliber, contour, and mucosal pattern. No evidence of stricture, mass, or ulcerations identified. Esophageal peristalsis was normal. No evidence of hiatus hernia identified. No significant gastroesophageal reflux was seen during the course of the examination. Dual contrast and single contrast images of the stomach demonstrated normal contour and mucosal pattern without evidence of mass, ulceration, or other abnormality. Normal rugal fold pattern. Contrast freely passed into the gastric antrum and duodenal bulb without delay. Single and air-contrast images of the duodenal bulb demonstrate no abnormality. The duodenal sweep has a normal appearance, course, and mucosal fold appearance. FLUOROSCOPY TIME: 1 minute, 11 seconds Number of Spot Images:12 Number of cines obtained: 5 DOSE AREA PRODUCT: 2422 uGy-m2 (microgray-meter squared) FL/FL upper GI w air w Ba Swallow IMPRESSION: 1. Normal upper GI examination. Assessment & Plan Assessment & Plan (1) Gastroesophageal reflux disease: Code(s): K21.9 - Gastro-esophageal reflux disease without esophagitis Category: Medical Qualifiers: Esophagitis presence: esophagitis presence not specified Qualified Code(s): K21.9 - Gastro-esophageal reflux disease without esophagitis (2) Postprandial epigastric pain: Code(s): R10.13 - Epigastric pain (3) Postprandial abdominal bloating: Code(s): R14.0 - Abdominal distension (gaseous) (4) Dyspepsia: Code(s): R10.13 - Epigastric pain (5) Constipation: Code(s): K59.00 - Constipation, unspecified Qualifiers: Constipation type: slow transit constipation Qualified Code(s): K59.01 - Slow transit constipation Plan Patient will continue taking Nexium and sucralfate. Avoid dietary triggers and late night snacking. Staying upright for minimum 3 hours after meals discussed with patient. Take senna as needed. Upper GI series was normal, however patient still experiences acid reflux from time to time. She will be sent for upper endoscopy to evaluate for esophagitis, gastritis, duodenitis, Henao's, H pylori she will return after the procedure. Patient is agreeable to current plan of care and verbalizes understanding of instructions. She was given the opportunity to ask questions and all questions answered. Thank you for allowing me to participate in her care Orders: Referrals GI Procedure Notification K21.9 - Gastro-esophageal reflux disease without esophagitis Medications: Refilled esomeprazole magnesium (Nexium) 40 mg PO DAILY 90 caps 3RF K21.9 - Gastro- esophageal reflux disease without esophagitis sucralfate 1 g PO BEDTIME 90 tabs 4RF K21.9 - Gastro-esophageal reflux disease without esophagitis, R10.13 - Epigastric pain Coding Level of Care Code Est Pt Level 4 (26065) Complex visit Add On G2211 Diagnoses Gastroesophageal reflux disease, unspecified whether esophagitis present K21.9 Esophagitis presence: esophagitis presence not specified Postprandial epigastric pain R10.13 Postprandial abdominal bloating R14.0 Dyspepsia R10.13 Slow transit constipation K59.01 Constipation type: slow transit constipation Time Spent (min) 35 Comment 25 minutes spent with patient and additional 10 minutes spent reviewing her records
== END 2025-10-10 09:33 | disposition home or self-care (01) ==
LOC: HO.HGI 08:52
PROVIDERS: PCP Family Medicine; Visit Provider Nurse Practitioner Family
DX: K21.9 Gastro-esophageal reflux disease without esophagitis (principal); R10.13 Epigastric pain; R14.0 Abdominal distension (gaseous); K59.01 Slow transit constipation
CPT/HCPCS: 99214

== ENCOUNTER → 2025-10-10 08:51 | Outpatient (BNVA) | payer OTHER, SELFPAY | PROVIDERS: PCP Family Medicine; Visit Provider Nurse Practitioner Family | DX: K21.9 Gastro-esophageal reflux disease without esophagitis (principal); R10.13 Epigastric pain; R14.0 Abdominal distension (gaseous); K59.01 Slow transit constipation | CPT/HCPCS: 99212 ==